=== PATIENT | male | born 1950 | race Caucasian/White ===

== ENCOUNTER 2017-11-07 16:18 | Inpatient (IN) | payer MEDICARE ==
[2017-11-07] MEDS ORDERED: DEXTROSE 50% 25 GM / 50ML DISP.SYRIN. IV (17:00)
[2017-11-07 17:40] LABS: POC GLUCOSE 105 mg/dL (70-99)
[2017-11-07 17:40] LABS: POC GLUCOSE 61 mg/dL (70-99)
[2017-11-07 17:48] LABS: ADD MAN DIFF? NO
[2017-11-07 17:50] LABS: BASO # 0.1 x10^3/uL (0.0-0.2); BASO % 1 % (0-3); EOS # 0.1 x10^3/uL (0.0-0.7); EOS % 1 % (0-3); HEMATOCRIT 45.6 % (39.0-53.0); HEMOGLOBIN 15.8 g/dL (13.0-17.5); LYMPH % 12 % (24-48); MEAN CORPUSCULAR HEMOGLOBIN 35 pg (25-35); MEAN CORPUSCULAR HGB CONC 35 g/dL (31-37); MEAN CORPUSCULAR VOLUME 100 fL (79-100); MONO % 12 % (0-9); NEUT # 6.4 x10^3uL (1.8-7.7); NEUT % 75 % (31-73); PLATELET COUNT 245 x10^3/uL (140-400); RED BLOOD COUNT 4.54 x10^6/uL (4.30-5.70); RED CELL DISTRIBUTION WIDTH 14.7 % (11.5-14.5); WHITE BLOOD COUNT 8.6 x10^3/uL (4.0-11.0)
[2017-11-07 18:00] LABS: INR 1.2 (0.8-1.1); PROTHROMBIN TIME PATIENT 14.2 SEC (11.7-14.0)
[2017-11-07 18:04] LABS: D-DIMER 0.91 ug/mlFEU (0.00-0.50)
[2017-11-07 18:07] LABS: ALBUMIN 3.2 g/dL (3.4-5.0); ALK PHOS 83 U/L (46-116); ALT (SGPT) 62 U/L (16-63); ANION GAP 17 (6-14); AST (SGOT) 49 U/L (15-37); BLOOD UREA NITROGEN 11 mg/dL (8-26); BUN/CREATININE RATIO 12 (6-20); CALCIUM 8.5 mg/dL (8.5-10.1); CARBON DIOXIDE 24 mmol/L (21-32); CHLORIDE 102 mmol/L (98-107); CREATININE 0.9 mg/dL (0.7-1.3); GFR 84.4; GLUCOSE 105 mg/dL (70-99); POTASSIUM 3.3 mmol/L (3.5-5.1); SODIUM 143 mmol/L (136-145); TOTAL BILIRUBIN 0.9 mg/dL (0.2-1.0); TOTAL PROTEIN 6.5 g/dL (6.4-8.2)
[2017-11-07] MEDS ORDERED: PNEUMOCOCCAL VAX SCREEN BY RX. MC (18:30)
[2017-11-07 18:31] LABS: THYROID STIM HORMONE (TSH) 2.269 uIU/mL (0.358-3.74)
[2017-11-07 18:31] LABS: FREE T4 1.07 ng/dL (0.76-1.46)
[2017-11-07 18:33] LABS: NT-PRO BNP 796 pg/mL (0-124)
[2017-11-07] MEDS ORDERED: ACETAMINOPHEN 325 MG TABLET. PO (19:00)
[2017-11-07 19:23] LABS: TROPONINI < 0.017 ng/mL (0.000-0.055)
[2017-11-07] MEDS: MAGNESIUM OXIDE 400 MG TABLET PO (21:04)
[2017-11-07] MEDS: POTASSIUM CHLORIDE 20 MEQ TABLET.ER. PO (21:04)
[2017-11-07] MEDS: FUROSEMIDE 40 MG/4 ML VIAL. IVP (21:05)
[2017-11-07] MEDS: ENOXAPARIN 40 MG/0.4 ML SYRINGE. SQ (21:05)
[2017-11-07 21:07] LABS: POC GLUCOSE 89 mg/dL (70-99)
[2017-11-08] MEDS: POTASSIUM CHLORIDE 20 MEQ TABLET.ER. PO ×4 (08:00→17:47)
[2017-11-08 08:12] LABS: POC GLUCOSE 97 mg/dL (70-99)
[2017-11-08] MEDS: MAGNESIUM OXIDE 400 MG TABLET PO ×2 (08:31→20:29)
[2017-11-08] MEDS: metFORMIN 500 MG TABLET PO (08:31)
[2017-11-08] MEDS: METOPROLOL SUCC 24HR ER 25 MG TAB.ER.24H. PO (08:32)
[2017-11-08] MEDS: LISINOPRIL 20 MG TABLET PO (08:32)
[2017-11-08] MEDS: GLIMEPIRIDE 2 MG TABLET. PO (08:32)
[2017-11-08 09:03] LABS: ANION GAP 8 (6-14); BLOOD UREA NITROGEN 11 mg/dL (8-26); CALCIUM 8.5 mg/dL (8.5-10.1); CARBON DIOXIDE 35 mmol/L (21-32); CHLORIDE 102 mmol/L (98-107); CREATININE 0.8 mg/dL (0.7-1.3); GFR 96.7; GLUCOSE 75 mg/dL (70-99); MAGNESIUM 1.5 mg/dL (1.8-2.4); SODIUM 145 mmol/L (136-145)
[2017-11-08 09:20] LABS: CHOLESTEROL 101 mg/dL (0-200); HDLC 52 mg/dL (40-60); LDLC 36 mg/dL (0-100); NON-HDL CHOLESTEROL 49 mg/dL (0-129); TRIGLYCERIDES 63 mg/dL (0-150); VLDLC 13 mg/dL (0-40)
[2017-11-08 09:21] LABS: CHOLESTEROL/HDL RATIO 1.9
[2017-11-08 09:23] LABS: POTASSIUM 2.7 mmol/L (3.5-5.1)
[2017-11-08 09:34] LABS: TROPONINI < 0.017 ng/mL (0.000-0.055)
[2017-11-08] MEDS: IOHEXOL 300 MG/ML 100ML VIAL. IV (10:15)
[2017-11-08] MEDS ORDERED: CONTRAST GIVEN MC (10:15)
[2017-11-08] MEDS ORDERED: FUROSEMIDE 20 MG/2 ML VIAL. IVP (11:00)
[2017-11-08 11:25] LABS: POC GLUCOSE 199 mg/dL (70-99)
[2017-11-08] MEDS ORDERED: FUROSEMIDE 40 MG TABLET. PO (12:00)
[2017-11-08] MEDS: SPIRONOLACTONE 25 MG TABLET PO (12:26)
[2017-11-08] MEDS: FUROSEMIDE 40 MG/4 ML VIAL. IVP (12:27)
[2017-11-08] MEDS: MAGNESIUM SULFATE 2GM 50 ML IV (12:31)
[2017-11-08] MEDS: ASPIRIN ENTERIC COATED 81 MG TABLET.DR. PO (12:31)
[2017-11-08 17:17] LABS: POC GLUCOSE 261 mg/dL (70-99)
[2017-11-08] MEDS: ENOXAPARIN 40 MG/0.4 ML SYRINGE. SQ (20:30)
[2017-11-08] MEDS: PNEUMOC CONJ VACC 23-VALENT 0.5 ML VIAL. VAX IM (20:32)
[2017-11-08] MEDS: INSULIN LISPRO 300 UNITS/3 ML INSULN.PEN. SQ (20:39)
[2017-11-08 20:54] LABS: POC GLUCOSE 247 mg/dL (70-99)
[2017-11-09 04:44] LABS: ANION GAP 7 (6-14); BLOOD UREA NITROGEN 14 mg/dL (8-26); CALCIUM 8.8 mg/dL (8.5-10.1); CARBON DIOXIDE 34 mmol/L (21-32); CHLORIDE 101 mmol/L (98-107); CREATININE 0.9 mg/dL (0.7-1.3); GFR 84.4; GLUCOSE 147 mg/dL (70-99); MAGNESIUM 1.8 mg/dL (1.8-2.4); POTASSIUM 3.1 mmol/L (3.5-5.1); SODIUM 142 mmol/L (136-145)
[2017-11-09] MEDS ORDERED: CONTRAST GIVEN MC (06:45)
[2017-11-09] MEDS: IOHEXOL 300 MG/ML 100ML VIAL. IV (07:23)
[2017-11-09 07:31] LABS: POC GLUCOSE 131 mg/dL (70-99)
[2017-11-09] MEDS: POTASSIUM CHLORIDE 20 MEQ TABLET.ER. PO ×3 (08:00→16:04)
[2017-11-09] MEDS: INSULIN LISPRO 300 UNITS/3 ML INSULN.PEN. SQ ×3 (08:00→18:03)
[2017-11-09] MEDS: MAGNESIUM OXIDE 400 MG TABLET PO ×2 (09:00→19:47)
[2017-11-09 10:54] LABS: POC GLUCOSE 143 mg/dL (70-99)
[2017-11-09] MEDS: REGADENOSON 0.4 MG/5 ML DISP.SYRIN. IV (11:30)
[2017-11-09] MEDS: GLIMEPIRIDE 2 MG TABLET. PO (14:10)
[2017-11-09] MEDS: ASPIRIN ENTERIC COATED 81 MG TABLET.DR. PO (14:10)
[2017-11-09] MEDS: SPIRONOLACTONE 25 MG TABLET PO (14:10)
[2017-11-09] MEDS: METOPROLOL SUCC 24HR ER 25 MG TAB.ER.24H. PO ×2 (14:11→18:00)
[2017-11-09] MEDS: LISINOPRIL 20 MG TABLET PO (14:12)
[2017-11-09] MEDS: FUROSEMIDE 40 MG/4 ML VIAL. IVP ×2 (14:12→16:04)
[2017-11-09 17:46] LABS: POC GLUCOSE 175 mg/dL (70-99)
[2017-11-09] MEDS: RIVAROXABAN 10 MG TABLET. PO (19:47)
[2017-11-09 21:20] LABS: POC GLUCOSE 218 mg/dL (70-99)
[2017-11-10 04:22] LABS: ANION GAP 7 (6-14); BLOOD UREA NITROGEN 12 mg/dL (8-26); CALCIUM 8.6 mg/dL (8.5-10.1); CARBON DIOXIDE 33 mmol/L (21-32); CHLORIDE 103 mmol/L (98-107); CREATININE 0.8 mg/dL (0.7-1.3); GFR 96.7; GLUCOSE 129 mg/dL (70-99); MAGNESIUM 1.8 mg/dL (1.8-2.4); POTASSIUM 3.3 mmol/L (3.5-5.1); SODIUM 143 mmol/L (136-145)
[2017-11-10] MEDS: INSULIN LISPRO 300 UNITS/3 ML INSULN.PEN. SQ ×2 (08:00→12:20)
[2017-11-10] MEDS: METOPROLOL SUCC 24HR ER 50 MG TAB.ER.24H. PO (08:18)
[2017-11-10] MEDS: SPIRONOLACTONE 25 MG TABLET PO (08:18)
[2017-11-10] MEDS: ASPIRIN ENTERIC COATED 81 MG TABLET.DR. PO (08:19)
[2017-11-10] MEDS: GLIMEPIRIDE 2 MG TABLET. PO (08:19)
[2017-11-10] MEDS: MAGNESIUM OXIDE 400 MG TABLET PO (08:19)
[2017-11-10] MEDS: LISINOPRIL 20 MG TABLET PO (08:19)
[2017-11-10] MEDS: POTASSIUM CHLORIDE 20 MEQ TABLET.ER. PO ×2 (08:20→12:16)
[2017-11-10 08:42] LABS: POC GLUCOSE 146 mg/dL (70-99)
[2017-11-10] MEDS: ANTI-COAG MONITOR BY PHARMACY. MC (11:21)
[2017-11-10] MEDS ORDERED: ANTI-COAG MONITOR BY PHARMACY. MC (11:30)
[2017-11-10 11:49] LABS: POC GLUCOSE 201 mg/dL (70-99)
[2017-11-10] MEDS: amLODIPine BESYLATE 5 MG TABLET PO (12:17)
[2017-11-11] MEDS ORDERED: metFORMIN 500 MG TABLET PO (08:00)
[2017-11-11] MEDS ORDERED: GLIMEPIRIDE 2 MG TABLET. PO (08:00)
[2017-11-11] MEDS ORDERED: FUROSEMIDE 40 MG TABLET. PO (09:00)
== END 2017-11-10 13:10 | disposition home health service (06) | DRG 291 ==
LOC: 2 NORTH 16:18
PROVIDERS: Internal Medicine
DX: I11.0 Hypertensive heart disease with heart failure (principal); J96.01 Acute respiratory failure with hypoxia; E83.42 Hypomagnesemia; I27.20 Pulmonary hypertension, unspecified; I44.1 Atrioventricular block, second degree; E27.8 Other specified disorders of adrenal gland; I48.92 Unspecified atrial flutter; I50.31 Acute diastolic (congestive) heart failure; I48.0 Paroxysmal atrial fibrillation; E11.9 Type 2 diabetes mellitus without complications; E78.5 Hyperlipidemia, unspecified; E87.6 Hypokalemia; F10.20 Alcohol dependence, uncomplicated; I44.7 Left bundle-branch block, unspecified; N40.0 Benign prostatic hyperplasia without lower urinary tract symptoms; T50.2X5A Adverse effect of carbonic-anhydrase inhibitors, benzothiadiazides and other diuretics, initial encounter; Z82.49 Family history of ischemic heart disease and other diseases of the circulatory system; Z83.3 Family history of diabetes mellitus; Z87.442 Personal history of urinary calculi; M19.90 Unspecified osteoarthritis, unspecified site; Z88.5 Allergy status to narcotic agent; Z88.8 Allergy status to other drugs, medicaments and biological substances; Z88.1 Allergy status to other antibiotic agents; R80.9 Proteinuria, unspecified; R19.02 Left upper quadrant abdominal swelling, mass and lump
CPT/HCPCS: 36415; 71045; 71275; 74177; 78452; 80048; 80053; 80061; 82962; 83735; 83880; 84439; 84443; 84484; 85025; 85379; 85610; 90732; 93005; 93017; 93306; 93970; 94618; 96374; 96375; 96376; A9500; J1650; J1815; J1940; J2785; J3475; Q9967

== ENCOUNTER → 2017-11-14 | Outpatient (CLI) | payer MEDICARE ==
[2017-11-14] MEDS: GADOBUTROL 10 MMOL/10 ML VIAL IV (13:25)
== END | disposition home or self-care (01) ==
LOC: KCIC MRI 12:27
DX: E27.9 Disorder of adrenal gland, unspecified (principal); R19.02 Left upper quadrant abdominal swelling, mass and lump; D35.01 Benign neoplasm of right adrenal gland; K76.89 Other specified diseases of liver
CPT/HCPCS: 74183; A9585

== ENCOUNTER 2017-11-19 07:33 | Emergency (ER) | payer MEDICARE ==
[2017-11-19] MEDS: HYDROcodone/APAP 5/325MG 1 TAB TABLET PO (08:21)
== END 2017-11-19 08:55 | disposition home or self-care (01) ==
LOC: ER 07:33
DX: S22.42XA Multiple fractures of ribs, left side, initial encounter for closed fracture (principal); Z88.1 Allergy status to other antibiotic agents; Z88.8 Allergy status to other drugs, medicaments and biological substances; W17.1XXA Fall into storm drain or manhole, initial encounter; Y93.01 Activity, walking, marching and hiking; Y92.89 Other specified places as the place of occurrence of the external cause; Y99.8 Other external cause status
CPT/HCPCS: 71101; 99284

== ENCOUNTER 2020-06-30 20:07 | Emergency (ER) | payer MEDICARE ==
[~2020-06-30] VITALS: Ht 175.3 cm; Wt 113.6 kg
[~2020-06-30 20:07] MED LIST: ACET325T21 PO; ACET325T9 PO; AMLO-186 PO; APIX5TAB PO; ASCO500C PO; ASPI-886 PO; BISA10SU55 RC; BUME1TAB3 PO; BUMETANIDE IV; CIPR250T30 PO; DOCU283E RC; FURO40TA4 PO; GLIM2TAB PO; GLIM4TAB8 PO; HYDR-3164 PO; INSU100V35 SQ; LINE600T12 PO; LISI-334 PO; LISI-338 PO; MAG1TAB.11 PO; MAGN24003 PO; MAGN400T44 PO; MAGN400T5 PO; MELA3TAB43 PO; MERO500V24 IV; METF500T PO; METF500T16 PO; METO-239 PO; METO2.5T PO; METO25TA4 PO; METO50TA29 PO; MICO14CR TP; MULT1TAB90 PO; PANT40TA77 PO; POTA20TA4 PO; RIVA10TA PO; SENN1TAB62 PO; SPIR25TA PO; TAMS0.4C97 PO; TRAM50TA PO; [UNRECOGNIZED DRUG - CODE] IV; [UNRECOGNIZED DRUG - CODE] IV
[2020-06-30] MEDS ORDERED: MORPHINE SULFATE 4 MG/ML VIAL. IV/SQ PRN (20:45)
[2020-06-30 20:59] LABS: BILIRUBIN,URINE NEGATIVE (NEG); CLARITY,URINE TURBID; COLOR,URINE YELLOW; NITRITE,URINE NEGATIVE (NEG); PH,URINE 5.5 (<5.0-8.0); PROTEIN,URINE 100 mg/dL (NEG-TRACE)
[2020-06-30 21:03] LABS: BARBITURATES NEG (NEG); BENZODIAZEPINES NEG (NEG); CANNABINOIDS NEG (NEG); COCAINE NEG (NEG); METHADONE NEG (NEG); OPIATES NEG (NEG); PHENCYCLIDINE NEG (NEG)
[2020-06-30 21:05] LABS: AMPHETAMINE/METHAMPHETAMINE NEG (NEG)
[2020-06-30 21:06] LABS: BASO % 1 % (0-3); EOS # 0.3 x10^3/uL (0.0-0.7); EOS % 5 % (0-3); HEMATOCRIT 25.2 % (39.0-53.0); HEMOGLOBIN 7.7 g/dL (13.0-17.5); LYMPH # 0.6 x10^3/uL (1.0-4.8); LYMPH % 12 % (24-48); MEAN CORPUSCULAR HEMOGLOBIN 26 pg (25-35); MEAN CORPUSCULAR HGB CONC 31 g/dL (31-37); MEAN CORPUSCULAR VOLUME 85 fL (79-100); MONO # 0.8 x10^3/uL (0.0-1.1); MONO % 15 % (0-9); NEUT # 3.6 x10^3/uL (1.8-7.7); NEUT % 67 % (31-73); PLATELET COUNT 230 x10^3/uL (140-400); RED BLOOD COUNT 2.97 x10^6/uL (4.30-5.70); RED CELL DISTRIBUTION WIDTH 18.4 % (11.5-14.5); WHITE BLOOD COUNT 5.3 x10^3/uL (4.0-11.0)
[2020-06-30 21:10] LABS: WBC,URINE TNTC /HPF (0-4)
[2020-06-30 21:11] LABS: BACTERIA,URINE MANY /HPF (0-FEW); RBC,URINE 20-40 /HPF (0-2)
[2020-06-30 21:14] LABS: YEAST,URINE PRESENT /HPF
[2020-06-30 21:19] LABS: CALCIUM 9.1 mg/dL (8.5-10.1); CREATININE 1.9 mg/dL (0.7-1.3); GFR 35.3; POTASSIUM 3.4 mmol/L (3.5-5.1)
[2020-06-30 21:33] LABS: ALBUMIN 2.9 g/dL (3.4-5.0); ALBUMIN/GLOBULIN RATIO 0.8 (1.0-1.7); MAGNESIUM 2.4 mg/dL (1.8-2.4); TOTAL BILIRUBIN 0.5 mg/dL (0.2-1.0); TOTAL PROTEIN 6.4 g/dL (6.4-8.2)
[2020-06-30 21:36] LABS: CREATINE KINASE 49 U/L (39-308)
--- NOTE | 2020-06-30 22:22 | PHYS DOC ---
Past Medical History Past Medical History: A-Fib, CHF, Diabetes-Type II, High Cholesterol, Hypertension Past Surgical History: Other Additional Past Surgical Histo: unknown Smoking Status: Former Smoker Alcohol Use: Occasionally Drug Use: None General Adult EDM: Chief Complaint: ABNORMAL LABS HPI: HPI: Patient is a 70 year old male with history of A. fib, diabetes type 2, hypertension, high cholesterol, CHF who presents to the ED today from a rehab facility. Patient was sent to the ED because he has abnormal labs which they state is elevated creatinine and BUN. We do not have the numbers that were done at the rehab facility. They also report patient has increased bilateral lower extremity swelling. Patient denies any shortness of breath. Denies any fever, cough, nasal congestion. Patient himself states he does not know why the rehab presented to the emergency room if he had no acute symptoms and does not believe the BUN and creatinine at the rehab facility was different from his normal labs. Review of Systems: Review of Systems: Constitutional: Denies fever or chills. [] Eyes: Denies change in visual acuity. [] HENT: Denies nasal congestion or sore throat. [] Respiratory: Denies cough or shortness of breath. [] Cardiovascular: Reports increased swelling to bilateral lower extremities denies chest pain GI: Denies abdominal pain, nausea, vomiting, bloody stools or diarrhea. [] : Reports Phoenix catheter Musculoskeletal: Denies back pain or joint pain. [] Integument: Denies rash. [] Neurologic: Denies headache, focal weakness or sensory changes. [] Psychiatric: Denies depression or anxiety. [] Heart Score: Risk Factors: Risk Factors: DM, Current or recent (<one month) smoker, HTN, HLP, family history of CAD, obesity. Risk Scores: Score 0 - 3: 2.5% MACE over next 6 weeks - Discharge Home Score 4 - 6: 20.3% MACE over next 6 weeks - Admit for Clinical Observation Score 7 - 10: 72.7% MACE over next 6 weeks - Early Invasive Strategies Current Medications: Current Medications Medications (Trade) Dose Ordered Sig/Jeremías Start Time Stop Time Status Last Admin Dose Admin Morphine Sulfate (Morphine Sulfate) 4 mg PRN Q15MIN PRN 06/30/20 20:45 07/01/20 20:44 Allergies: Allergies: Allergies Coded Allergies Type Severity Reaction Last Updated Verified amoxicillin Allergy Intermediate Diarrhea 11/07/17 Yes clavulanic acid Allergy Intermediate Diarrhea 11/07/17 Yes clonidine Allergy Intermediate 11/07/17 Yes hydrochlorothiazide Allergy Intermediate 04/27/20 Yes irbesartan Allergy Intermediate 04/27/20 Yes metformin Allergy Intermediate 04/27/20 Yes pioglitazone Allergy Intermediate 11/07/17 Yes Physical Exam: PE: Constitutional: Well developed, well nourished, no acute distress, non-toxic appearance. [] HENT: Normocephalic, atraumatic, bilateral external ears normal, oropharynx moist, no oral exudates, nose normal. [] Eyes: PERRLA, EOMI, conjunctiva normal, no discharge. [] Neck: Normal range of motion, no tenderness, supple, no stridor. [] Cardiovascular:Heart rate regular rhythm, no murmur [] Lungs & Thorax: Pleur-vac tubing drain noted on the right lower chest. Dimi nished breath sounds to the left lower lung. Abdomen: Rounded abdomen. bowel sounds normal, soft, no tenderness, no masses, no pulsatile masses. Phoenix catheter in place Skin: Warm, dry, no erythema, no rash. [] Back: No tenderness, no CVA tenderness. [] Extremities: No tenderness, no cyanosis, no clubbing, ROM intact, +2 bilateral pedal edema Neurologic: Alert and oriented X 3, normal motor function, normal sensory function, no focal deficits noted. [] Psychologic: Affect normal, judgement normal, mood normal. [] Current Patient Data: Labs: Laboratory Tests Test 06/30/20 20:35 06/30/20 20:52 Urine Collection Type Unknown Urine Color Yellow Urine Clarity Turbid Urine pH 5.5 (<5.0-8.0) Urine Specific [place] 1.015 (1.000-1.030) Urine Protein 100 mg/dL (NEG-TRACE) Urine Glucose (UA) Negative mg/dL (NEG) Urine Ketones (Stick) Negative mg/dL (NEG) Urine Blood Large (NEG) Urine Nitrite Negative (NEG) Urine Bilirubin Negative (NEG) Urine Urobilinogen Dipstick 1.0 mg/dL (0.2 mg/dL) Urine Leukocyte Esterase Large (NEG) Urine RBC 20-40 /HPF (0-2) Urine WBC Tntc /HPF (0-4) Urine Squamous Epithelial Cells None /LPF Urine Bacteria Many /HPF (0-FEW) Urine Yeast Present /HPF Urine Opiates Screen Neg (NEG) Urine Methadone Screen Neg (NEG) Urine Barbiturates Neg (NEG) Urine Phencyclidine Screen Neg (NEG) Urine Amphetamine/Methamphetamine Neg (NEG) Urine Benzodiazepines Screen Neg (NEG) Urine Cocaine Screen Neg (NEG) Urine Cannabinoids Screen Neg (NEG) Urine Ethyl Alcohol Neg (NEG) White Blood Count 5.3 x10^3/uL (4.0-11.0) Red Blood Count 2.97 x10^6/uL (4.30-5.70) L Hemoglobin 7.7 g/dL (13.0-17.5) L Hematocrit 25.2 % (39.0-53.0) L Mean Corpuscular Volume 85 fL (79-100) Mean Corpuscular Hemoglobin 26 pg (25-35) Mean Corpuscular Hemoglobin Concent 31 g/dL (31-37) Red Cell Distribution Width 18.4 % (11.5-14.5) H Platelet Count 230 x10^3/uL (140-400) Neutrophils (%) (Auto) 67 % (31-73) Lymphocytes (%) (Auto) 12 % (24-48) L Monocytes (%) (Auto) 15 % (0-9) H Eosinophils (%) (Auto) 5 % (0-3) H Basophils (%) (Auto) 1 % (0-3) Neutrophils # (Auto) 3.6 x10^3/uL (1.8-7.7) Lymphocytes # (Auto) 0.6 x10^3/uL (1.0-4.8) L Monocytes # (Auto) 0.8 x10^3/uL (0.0-1.1) Eosinophils # (Auto) 0.3 x10^3/uL (0.0-0.7) Basophils # (Auto) 0.0 x10^3/uL (0.0-0.2) Sodium Level 141 mmol/L (136-145) Potassium Level 3.4 mmol/L (3.5-5.1) L Chloride Level 101 mmol/L (98-107) Carbon Dioxide Level 36 mmol/L (21-32) H Anion Gap 4 (6-14) L Blood Urea Nitrogen 55 mg/dL (8-26) H Creatinine 1.9 mg/dL (0.7-1.3) H Estimated GFR (Cockcroft-Gault) 35.3 BUN/Creatinine Ratio 29 (6-20) H Glucose Level 93 mg/dL (70-99) Lactic Acid Level 1.2 mmol/L (0.4-2.0) Calcium Level 9.1 mg/dL (8.5-10.1) Magnesium Level 2.4 mg/dL (1.8-2.4) Total Bilirubin 0.5 mg/dL (0.2-1.0) Aspartate Amino Transferase (AST) 15 U/L (15-37) Alanine Aminotransferase (ALT) 12 U/L (16-63) L Alkaline Phosphatase 116 U/L (46-116) Creatine Kinase 49 U/L (39-308) Creatine Kinase MB (Mass) 1.3 ng/mL (0.0-3.6) Creatine Kinase MB Relative Index % (0-4) Troponin I Quantitative 0.020 ng/mL (0.000-0.055) SR-[id number]-[id number]-Type Natriuretic Peptide 8487 pg/mL (0-124) H Total Protein 6.4 g/dL (6.4-8.2) Albumin 2.9 g/dL (3.4-5.0) L Albumin/Globulin Ratio 0.8 (1.0-1.7) L Lipase 193 U/L (73-393) Procalcitonin < 0.10 ng/mL (0.00-0.10) Thyroid Stimulating Hormone (TSH) 11.939 uIU/mL (0.358-3.74) H Laboratory Tests 06/30/20 20:52 Laboratory Tests 06/30/20 20:52 Vital Signs: Vital Signs Date Time Temp Pulse Resp B/P (MAP) Pulse Ox O2 Delivery O2 Flow Rate FiO2 06/30/20 20:43 70 18 99/60 (73) 100 Nasal Cannula 3.0 06/30/20 20:11 97.8 97.8 EKG: EKG: [] Radiology/Procedures: Radiology/Procedures: []PROCEDURE: PORTABLE CHEST 1V EXAM: AP View of the chest DATE: 06/30/2020 9:32 PM INDICATION: Reason: swelling to BLE hx of CHF / Spl. Instructions: / History: COMPARISON: 05/16/2020 FINDINGS: Stable cardiomegaly. Aorta is tortuous. Bilateral perihilar and lung base airspace opacities and pleural effusions. No pneumothorax. IMPRESSION: Cardiomegaly with bilateral perihilar and lung base airspace opacities and pleural effusions, concerning for pulmonary edema. Electronically signed by: Willy Marcelino MD (06/30/2020 10:31 PM) [facility] DICTATED and SIGNED BY: WILLY MARCELINO MD DATE: 06/30/20 [id number] 0 Course & Med Decision Making: Course & Med Decision Making Pertinent Labs and Imaging studies reviewed. (See chart for details) This is a 70-year-old male patient with history of CHF among other illnesses sent to the ED from [facility] rehab facility to be evaluated for increased swelling and abnormal labs. Rehab is concerned about elevated creatinine and BUN. Creatinine in the ED is 1.9, BUN is 55 this numbers are around his baseline. Patient also has a Phoenix catheter, urine positive for large amount of leukocytes, most likely colonized. CBC with a normal WBC, chest x-ray noted for pulmonary edema. Vitals are stable, O2 sats at 100% on 3 L of oxygen which he uses chronically. Patient is afebrile. Patient is alert oriented x4. Spoke to Dr. Reynoso patient's PCP. We went through his work up to try and figure out if there is any acute reason for admission. We could not find anything to admit patient for. D/c back to rehab Glenda Disclaimer: Glenda Disclaimer: This electronic medical record was generated, in whole or in part, using a voice recognition dictation system. Departure Departure Impression: Primary Impression: CHF (congestive heart failure) Qualified Codes: I50.9 - Heart failure, unspecified Additional Impression: UTI (urinary tract infection) Qualified Codes: T83.511A - Infection and inflammatory reaction due to indwelling urethral catheter, initial encounter; N39.0 - Urinary tract infection, site not specified Disposition: 01 DC HOME SELF CARE/HOMELESS Condition: STABLE Referrals: DALIA REYNOSO MD (PCP) follow up next week Patient Instructions: Heart Failure, [id number], Urinary Tract Infection Additional Instructions: You were evaluated in the emergency room. Please continue with treatment at rehab facility. Your work-up in the emergency room was negative for any acute findings. Your creatinine was 1.9 with BUN of 55 which is around your baseline. Your primary care doctor Dr. Siddiqi was okay with you going back to rehab. Your urine is positive for infection but you have a catheter there is a chance this urine is colonized. We will culture it. If it grows any infection we will call the rehab facility and let them know. SHANICE BOATENG APRN Jun 30, 2020 22:22
--- NOTE | 2020-06-30 22:33 | RAD ---
EXAM: AP View of the chest DATE: 06/30/2020 9:32 PM INDICATION: Reason: swelling to BLE hx of CHF / Spl. Instructions: / History: COMPARISON: 05/16/2020 FINDINGS: Stable cardiomegaly. Aorta is tortuous. Bilateral perihilar and lung base airspace opacities and pleu ral effusions. No pneumothorax. IMPRESSION: Cardiomegaly with bilateral perihilar and lung base airspace opacities and pleural effusions, concern ing for pulmonary edema. Electronically signed by: Willy Jones MD (06/30/2020 10:31 PM) MARCELINO
[2020-06-30 23:48] VITALS: BP 108/67
== END 2020-07-01 00:05 | disposition home or self-care (01) ==
LOC: ER 20:07
DX: T83.511A Infection and inflammatory reaction due to indwelling urethral catheter, initial encounter (principal); N39.0 Urinary tract infection, site not specified; I11.0 Hypertensive heart disease with heart failure; I50.9 Heart failure, unspecified; I48.91 Unspecified atrial fibrillation; E11.9 Type 2 diabetes mellitus without complications; Z87.891 Personal history of nicotine dependence; Z88.1 Allergy status to other antibiotic agents; Z88.8 Allergy status to other drugs, medicaments and biological substances; Z79.899 Other long term (current) drug therapy; Y84.6 Urinary catheterization as the cause of abnormal reaction of the patient, or of later complication, without mention of misadventure at the time of the procedure; Y92.89 Other specified places as the place of occurrence of the external cause
CPT/HCPCS: 36415; 71045; 80053; 80307; 81001; 82553; 83605; 83690; 83735; 83880; 84145; 84443; 84484; 85025; 87077; 87086; 87186; 93005; 99285-25

== ENCOUNTER 2020-12-16 13:52 | Inpatient (IN) | payer MEDICARE, OTHER ==
[~2020-12-16] VITALS: Ht 177.8 cm; Wt 78.1 kg
[~2020-12-16 13:52] MED LIST changes: -LISI-334 PO; -LISI-338 PO; +LISI-517 PO; +LISI20TA18 PO; -MICO14CR TP; +MICO14CR3 TP; -MULT1TAB90 PO; +MULT1TAB92 PO
--- NOTE | 2020-12-16 14:06 | PHYS DOC ---
Past Medical History Past Medical History: A-Fib, CHF, Diabetes-Type II, High Cholesterol, Hyp ertension Past Surgical History: Other Additional Past Surgical Histo: unknown Smoking Status: Never Smoker Alcohol Use: Occasionally Drug Use: None General Adult EDM: Chief Complaint: SOA HPI: HPI: 70-year-old male with a history of a transitive pleural effusion with recurrent status post right pleural chest tube placed by pulmonology. At the nursing facility his chest tube got clogged about a week ago and has since then developed worsening shortness of breath. He denies any fevers chills or vomiting. His shortness of breath is associated with the clogging of the chest tube. Duration constant. Review of systems negative for abdominal pain vomiting fevers chills cough. He denies unilateral leg swelling or hemoptysis. All other review of systems negative. Heart Score: C/O Chest Pain: No Risk Factors: Risk Factors: DM, Current or recent (<one month) smoker, HTN, HLP, family history of CAD, obesity. Risk Scores: Score 0 - 3: 2.5% MACE over next 6 weeks - Discharge Home Score 4 - 6: 20.3% MACE over next 6 weeks - Admit for Clinical Observation Score 7 - 10: 72.7% MACE over next 6 weeks - Early Invasive Strategies Allergies: Allergies: Allergies Coded Allergies Type Severity Reaction Last Updated Verified amoxicillin Allergy Intermediate Diarrhea 11/07/17 Yes clavulanic acid Allergy Intermediate Diarrhea 11/07/17 Yes clonidine Allergy Intermediate 11/07/17 Yes hydrochlorothiazide Allergy Intermediate 04/27/20 Yes irbesartan Allergy Intermediate 04/27/20 Yes metformin Allergy Intermediate 04/27/20 Yes pioglitazone Allergy Intermediate 11/07/17 Yes Physical Exam: PE: Constitutional: Well developed, well nourished, no acute distress, non-toxic appearance. [] HENT: Normocephalic, atraumatic, bilateral external ears normal, oropharynx moist, no oral exudates, nose normal. [] Trachea is midline. No JVD. Eyes: PERRLA, EOMI, conjunctiva normal, no discharge. [] Neck: Normal range of motion, no tenderness, supple, no stridor. [] Cardiovascular:Heart rate regular rhythm, no murmur [] Lungs & Thorax: Right lung sounds are diminished. Left lung sounds are clear with no wheezing or crackles. Abdomen: Bowel sounds normal, soft, no tenderness, no masses, no pulsatile masses. [] Skin: Warm, dry, no erythema, no rash. [] Back: No tenderness, no CVA tenderness. [] Extremities: No tenderness, no cyanosis, no clubbing, ROM intact, no edema. [] Neurologic: Alert and oriented X 3, normal motor function, normal sensory function, no focal deficits noted. [] Psychologic: Affect normal, judgement normal, mood normal. [] EKG: EKG: EKG shows a left bundle branch block pattern. Scar Bosa negative. No obvious P wave. Regular rate. Regular rhythm. Similar to previous on April 262019 [] Radiology/Procedures: Radiology/Procedures: [] Course & Med Decision Making: Course & Med Decision Making Pertinent Labs and Imaging studies reviewed. (See chart for details) [] 70-year-old male sent here after his pleural tube got clogged. On arrival the patient is afebrile with a normal heart rate. Blood pressure within normal limits of satting 99% on 3 L nasal cannula. Blood counts obtained which showed a normal white blood cell count. Hemoglobin 12.4. Chemistry panel shows a potassium of 2.2. Creatinine 1.6 with a BUN of 89. Procalcitonin elevated at 0.12. Troponin elevated at 0.07. proBNP elevated at 4528. Lactic acid within normal limits. Magnesium within normal limits. We will need to replete the patient's potassium by IV. I spoke with Dr. Reynoso who accepts patient for admission. I spoke with Dr. Haro and informed him about the patient. Dr. Yandy dennison asked that I consult Dr. Dill and Dr. Nguyen. Consults were placed with basic bridge orders. Given the patient's elevated procalcitonin with the chest x-ray is inability to exclude pneumonia we will cover the patient with IV antibiotics until we can clarify with more information. Glenda Disclaimer: Glenda Disclaimer: This electronic medical record was generated, in whole or in part, using a voice recognition dictation system. Departure Departure Impression: Primary Impression: CHF (congestive heart failure) Additional Impressions: Pleural effusion Hypokalemia Disposition: ADMITTED INPATIENT Admitting Physician: Meek Reynoso [facility] Condition: STABLE Referrals: MEEK REYNOSO MD (PCP) BALDOMERO CARUSO MD Dec 16, 2020 14:06
--- NOTE | 2020-12-16 14:31 | RAD ---
EXAM: AP View of the chest DATE: 12/16/2020 2:04 PM INDICATION: Reason: CHEST TUBE NOT DRAINING PER PATIENT / Spl. Instructions: / History: COMPARISON: No Prior FINDINGS: Heart is moderately enlarged. Aorta is tortuous. Atherosclerotic calcifications. Bilateral pleural ef fusions. Bilateral parenchymal airspace opacities likely pulmonary edema or consolidative process suc h as pneumonia. No pneumothorax. IMPRESSION: Cardiomegaly with bilateral pleural effusions and parenchymal opacities may represent pulmonary edema or consolidative process such as pneumonia Electronically signed by: Willy Jones MD (12/16/2020 2:29 PM) MARCELINO
[2020-12-16 15:14] LABS: BASO % 0 % (0-3); EOS # 0.3 x10^3/uL (0.0-0.7); EOS % 4 % (0-3); HEMATOCRIT 35.8 % (39.0-53.0); HEMOGLOBIN 12.4 g/dL (13.0-17.5); LYMPH # 0.5 x10^3/uL (1.0-4.8); LYMPH % 6 % (24-48); MEAN CORPUSCULAR HEMOGLOBIN 30 pg (25-35); MEAN CORPUSCULAR HGB CONC 35 g/dL (31-37); MEAN CORPUSCULAR VOLUME 87 fL (79-100); MONO # 1.1 x10^3/uL (0.0-1.1); MONO % 13 % (0-9); NEUT # 6.3 x10^3/uL (1.8-7.7); NEUT % 77 % (31-73); PLATELET COUNT 314 x10^3/uL (140-400); RED BLOOD COUNT 4.13 x10^6/uL (4.30-5.70); RED CELL DISTRIBUTION WIDTH 13.8 % (11.5-14.5); WHITE BLOOD COUNT 8.2 x10^3/uL (4.0-11.0)
[2020-12-16 15:45] LABS: ALBUMIN 3.1 g/dL (3.4-5.0); CALCIUM 9.3 mg/dL (8.5-10.1); CREATININE 1.6 mg/dL (0.7-1.3); DIRECT BILIRUBIN 0.3 mg/dL (0.0-0.2); GFR 43.1; TOTAL BILIRUBIN 0.8 mg/dL (0.2-1.0); TOTAL PROTEIN 7.7 g/dL (6.4-8.2)
[2020-12-16 15:49] LABS: POTASSIUM 2.2 mmol/L (3.5-5.1)
[2020-12-16] MEDS ORDERED: VANCOMYCIN PER PHARMACY MC PRN (16:15)
[2020-12-16] MEDS ORDERED: levOFLOXacin PER PHARMACY. MC PRN (16:15)
[2020-12-16] MEDS ORDERED: POTASSIUM CHLORIDE 20MEQ 100 ML IV ONE (16:15)
[2020-12-16] MEDS ORDERED: POTASSIUM CHLORIDE 20 MEQ TABLET.ER. PO ONE ×2 (16:45→21:00)
[2020-12-16] MEDS ORDERED: ACETAMINOPHEN 325 MG TABLET. PO PRN (16:45)
[2020-12-16] MEDS ORDERED: VANCOMYCIN 1GM IVPB FOR OMNI 250 ML IV ONE (17:00)
[2020-12-16] MEDS: INSULIN LISPRO 300 UNITS/3 ML VIAL. SQ SCH (17:00)
--- NOTE | 2020-12-16 17:09 | PDOC ---
Provider Note Date of Service: DATE: 12/16/20 TIME: 17:08 Provider Note history and physical dictated # [id number] Justifications for Admission Other Justification DALIA FRANKLIN MD Dec 16, 2020 17:09
[2020-12-16] MEDS ORDERED: NORMAL SALINE IV SCH (17:30)
--- NOTE | 2020-12-16 17:30 | RAD ---
EXAM: RENAL ULTRASOUND CLINICAL HISTORY: Reason: acute kidney injury. rule out hydronephrosis / Spl. Instructions: / Histor y: COMPARISON: None available. TECHNIQUE: Ultrasound examination of the bilateral kidneys and urinary bladder was performed. FINDINGS: The right kidney measures 12.0 x 4.9 x 7.3 cm. The left kidney measures 9.4 x 4.7 x 5.2 cm. Punctate bilateral intrarenal calculi identified. No obvious hydronephrosis.Cystic structure identified in the inferior aspect of the left kidney measuring 3.5 cm likely cyst. Phoenix catheter balloon identified i n the urinary bladder. IMPRESSION: 1. Bilateral intrarenal collecting system calculi. 2. 3.4 cm cyst left kidney. Electronically signed by: Michael Guo MD (12/16/2020 5:27 PM) [id number]
--- NOTE | 2020-12-16 18:40 | HP ---
ADMIT DATE: 12/16/2020 HISTORY OF PRESENT ILLNESS: The patient is a 70-year-old white male with history of chronic diastolic congestive heart failure, moderate aortic stenosis, paroxysmal atrial fibrillation, chronic kidney disease stage III, diabetes mellitus type 2 with nephropathy, who has a PleurX tube in the right chest for recurrent transudative pleural effusions and lives in assisted living facility. Apparently his PleurX tube, which he has had for 6 months was clotted for one week and apparently usually has a guillory color according to the patient when the fluid was removed, the last week it is just being blood-tinged. Normally since the fluid is removed about twice a week. He does not know the name of his medications. He was sent to the emergency room apparently by the visiting nurse because of malfunction of the PleurX tube and also some shortness of breath, dyspnea on exertion. He is on oxygen at home about 2-1/2 liters per nasal cannula, he says. He cannot recall his medications and unfortunately does not have his list from home for medications he takes. He did have a chest x-ray, which showed some bilateral pleural effusions. His potassium was quite low at 2.2 in the emergency room and his BUN and creatinine was higher than usual. His BUN was 89, creatinine 1.6. Previous BUN in the past was 55, creatinine 1.6 to 1.9 range. He is therefore admitted for further evaluation and treatment of his congestive heart failure and hypokalemia and also malfunctioning of his right PleurX tube. ALLERGIES: INTOLERANCE TO AUGMENTIN, CLONIDINE, HYDROCHLOROTHIAZIDE, AVAPRO, METFORMIN AND ACTOS. MEDICATIONS PRIOR TO ADMISSION: Unknown. He says he was taking potassium chloride 50 mEq a day, taking furosemide. He does not know the dose, was taking glimepiride 1 mg every day and otherwise he cannot remember his other medications that we are trying to get the list of his medications from his home health services. PAST MEDICAL HISTORY: Significant for chronic hypoxic respiratory failure, chronic diastolic congestive heart failure, moderate aortic stenosis, paroxysmal atrial fibrillation, previously treated with Eliquis, but he stopped the Eliquis because he was having significant nosebleeds lasting 24 hours. He has been off the Eliquis at least 6 months nonobstructive coronary artery disease, bilateral transudative pleural effusions and he has had thoracentesis in the past and he has had a right PleurX tube placed about 6 months ago. He has diabetes mellitus type 2 with nephropathy. He has had urinary tract infections in the past, moderate pulmonary hypertension. He has got a diabetic peripheral neuropathy. He had a left adrenal adenectomy for a benign adrenal mass associated with hyperaldosteronism few years ago. SOCIAL HISTORY: Drinks some alcohol in the past, but is not due so. He does not smoke. He lives in assisted living facility and uses a walker. In the past, apparently had one glass of alcohol a day or even up to two drinks a day. FAMILY HISTORY: Not contributory. REVIEW OF SYSTEMS: CONSTITUTIONAL: There has been no fever, chills or sweats in last few days. CARDIOVASCULAR: No chest pain. PULMONARY: No dyspnea on exertion. Denies any cough. GI: Last bowel movement was in the last 24 hours. ENDOCRINE: He has diabetes mellitus. SKIN: No rashes. PHYSICAL EXAMINATION: VITAL SIGNS: Temperature is 98.6 degrees, heart rate is 60, respiratory rate 18, blood pressure 104/61, oxygen saturation 99% on 3 liters per nasal cannula. HEENT: Eyes gaze is conjugate. Mouth is symmetrical. NECK: He has got JVD. HEART: Reveals an S1, S2. He has got a grade II/ systolic murmur left sternal border, also heard at the axilla. LUNGS: Reveals a few crackles in the left lung base and decreased breath sounds in right lung base. He has a PleurX tube anteriorly in the right chest. ABDOMEN: Soft with no hepatosplenomegaly, masses or tenderness. GENITOURINARY: He has got a Phoenix catheter in place. EXTREMITIES: Lower extremities without edema. Both feet are warm. Dorsalis pedis pulses mildly present. SKIN: No rashes. 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 LABORATORY DATA: White count 8.3, hemoglobin 12.4, MCV of 87, platelet count 314,000, 77 polys and 6 lymphocytes. Sodium 138, potassium was very low at 2.2, chloride 92, total CO2 39 with a BUN of 89, creatinine 1.6. His liver function tests were okay. His albumin was 3.1, lipase was 222. Magnesium 2.0. Lactic acid level 1.8. Troponin level of 0.07. ProBNP was 4528. Procalcitonin was 0.12 and electrocardiogram showed normal sinus rhythm, first degree AV block and a left bundle branch block. He had a chest x-ray done, which showed moderate cardiomegaly. He has got atherosclerotic calcifications, bilateral pleural effusions. No pneumothorax. ASSESSMENT: 1. Acute on chronic diastolic congestive heart failure. 2. Acute kidney injury on top of chronic kidney disease stage III, possibly secondary to intravascular volume depletion from his diuretics he took prior to admission. 3. Severe hypokalemia. 4. Bilateral pleural effusions. 5. Malfunctioning of the PleurX tube in the right side. 6. Paroxysmal atrial fibrillation, currently in sinus rhythm, off of Eliquis due to recurrent and significant nosebleeds and he stopped the Eliquis himself about 6 months ago. 7. Diabetes mellitus type 2 with nephropathy. 8. Moderate aortic stenosis. 9. Nonobstructive coronary artery disease. 10. Acute on chronic hypoxic respiratory failure. PLAN: The plan at this time is to consult Dr. Dill for Pulmonary, Dr. Wilson for Cardiology, Dr. Nguyen nephrology. We will order an echocardiogram and also order a renal ultrasound. I spoke with the nurses in the emergency room to see if they can get a copy of his home medications. Then, the left an order for nursing to call me around 7:00 p.m. tonight with the medications. Recommend holding of diuretics for the time being. He is lying in bed supine. He is not short of breath and with his azotemia having worsening renal function and hypokalemia. We will hold off on diuretics for now. As far as his diabetes, we will put him on diabetic renal diet. Put him on glimepiride 1 mg p.o. daily and I put him on a low dose Humalog insulin sliding scale before meals t.i.d. and then we will put him on heparin for deep vein thrombosis prophylaxis. Discontinue the Levaquin and vancomycin that he received in the emergency room, I do not think he has pneumonia. I just got the patient in the emergency room, so that he got medications. He got 20 mEq of potassium chloride IV in the emergency room that was burning through the IV and were given 40 mEq of potassium chloride p.o. x1. Repeat a CBC, BMP and magnesium tomorrow. Physical and occupational therapy has been ordered. He wishes to be a full code. Put him on a cardiac renal diet. Check his blood sugars before meals t.i.d. and at bedtime. LORI DR: Breonna TID: [id number]
[2020-12-16 18:58] VITALS: BP 99/59
[2020-12-16 19:25] VITALS: BP 101/63
--- NOTE | 2020-12-16 19:25 | NUR ---
Pt in bed assessment completed vss poc explained pt denied pain, call light in reach will resume care and continue to monitor pt. Pt reminded to call for assistance prior to getting oob.
[2020-12-16] MEDS: SODIUM CHLORIDE 0.65% NASAL SPRAY 45ML BOTTLE. NS SCH (21:43)
[2020-12-16] MEDS: METOPROLOL TART IMMED RELEASE 25 MG TABLET. PO SCH (21:44)
[2020-12-16] MEDS: HEPARIN for SUB-Q USE 5,000 UNIT/ML VIAL. SQ SCH (21:47)
[2020-12-16 22:13] VITALS: BP 95/61
[2020-12-17 03:13] VITALS: BP 101/63
[2020-12-17 03:13] LABS: BASO % 0 % (0-3); EOS # 0.3 x10^3/uL (0.0-0.7); EOS % 3 % (0-3); HEMATOCRIT 33.1 % (39.0-53.0); HEMOGLOBIN 11.7 g/dL (13.0-17.5); LYMPH # 0.6 x10^3/uL (1.0-4.8); LYMPH % 6 % (24-48); MEAN CORPUSCULAR HEMOGLOBIN 30 pg (25-35); MEAN CORPUSCULAR HGB CONC 35 g/dL (31-37); MEAN CORPUSCULAR VOLUME 86 fL (79-100); MONO # 1.5 x10^3/uL (0.0-1.1); MONO % 15 % (0-9); NEUT # 7.2 x10^3/uL (1.8-7.7); NEUT % 75 % (31-73); PLATELET COUNT 312 x10^3/uL (140-400); RED BLOOD COUNT 3.87 x10^6/uL (4.30-5.70); RED CELL DISTRIBUTION WIDTH 13.9 % (11.5-14.5); WHITE BLOOD COUNT 9.6 x10^3/uL (4.0-11.0)
[2020-12-17 03:18] LABS: CALCIUM 8.9 mg/dL (8.5-10.1); CREATININE 1.8 mg/dL (0.7-1.3); GFR 37.6
[2020-12-17 03:20] LABS: POTASSIUM 2.7 mmol/L (3.5-5.1)
[2020-12-17] MEDS ORDERED: TORS100T3 PO (03:51)
[2020-12-17] MEDS ORDERED: NYST15PO2 TP (03:51)
[2020-12-17] MEDS ORDERED: POTA20TA4 PO (03:51)
[2020-12-17] MEDS ORDERED: COLL226C TP (03:51)
[2020-12-17] MEDS ORDERED: GLIM1TAB7 PO (03:51)
[2020-12-17] MEDS ORDERED: FLUT16SP NS (03:51)
[2020-12-17] MEDS ORDERED: SODI44SP NS (03:51)
[2020-12-17] MEDS ORDERED: ACET325T21 PO (03:51)
[2020-12-17] MEDS: POTASSIUM CHLORIDE 10MEQ 100 ML IV SCH ×4 (03:59→07:00)
[2020-12-17 07:00] VITALS: BP 111/69
[2020-12-17] MEDS: INSULIN LISPRO 300 UNITS/3 ML VIAL. SQ SCH ×3 (08:00→17:00)
[2020-12-17] MEDS: SODIUM CHLORIDE 0.65% NASAL SPRAY 45ML BOTTLE. NS SCH ×3 (09:00→21:00)
[2020-12-17] MEDS: FLUTICASONE 50MCG/NASAL SPRAY 16GM BOTTLE. NS SCH (09:00)
[2020-12-17] MEDS: FAMOTIDINE 20 MG TABLET. PO SCH (09:00)
--- NOTE | 2020-12-17 09:10 | PDOC ---
PULMONARY PROGRESS NOTES DATE: 12/17/20 TIME: 09:09 Vitals Vital Signs Date Time Temp Pulse Resp B/P (MAP) Pulse Ox O2 Delivery O2 Flow Rate FiO2 12/17/20 07:00 98.2 75 16 111/69 (83) 97 Nasal Cannula 98.2 12/17/20 03:13 2.0 General: Alert HEENT: Other Lungs: Clear Cardiovascular: S1, S2 Abdomen: Soft, Non-tender Extremities: Other Labs Laboratory Tests Test 12/16/20 14:30 12/16/20 18:22 12/16/20 19:50 12/16/20 20:45 White Blood Count 8.2 x10^3/uL (4.0-11.0) Red Blood Count 4.13 x10^6/uL (4.30-5.70) Hemoglobin 12.4 g/dL (13.0-17.5) Hematocrit 35.8 % (39.0-53.0) Mean Corpuscular Volume 87 fL (79-100) Mean Corpuscular Hemoglobin 30 pg (25-35) Mean Corpuscular Hemoglobin Concent 35 g/dL (31-37) Red Cell Distribution Width 13.8 % (11.5-14.5) Platelet Count 314 x10^3/uL (140-400) Neutrophils (%) (Auto) 77 % (31-73) Lymphocytes (%) (Auto) 6 % (24-48) Monocytes (%) (Auto) 13 % (0-9) Eosinophils (%) (Auto) 4 % (0-3) Basophils (%) (Auto) 0 % (0-3) Neutrophils # (Auto) 6.3 x10^3/uL (1.8-7.7) Lymphocytes # (Auto) 0.5 x10^3/uL (1.0-4.8) Monocytes # (Auto) 1.1 x10^3/uL (0.0-1.1) Eosinophils # (Auto) 0.3 x10^3/uL (0.0-0.7) Basophils # (Auto) 0.0 x10^3/uL (0.0-0.2) Sodium Level 138 mmol/L (136-145) Potassium Level 2.2 mmol/L (3.5-5.1) Chloride Level 92 mmol/L (98-107) Carbon Dioxide Level 39 mmol/L (21-32) Anion Gap 7 (6-14) Blood Urea Nitrogen 89 mg/dL (8-26) Creatinine 1.6 mg/dL (0.7-1.3) Estimated GFR (Cockcroft-Gault) 43.1 Glucose Level 280 mg/dL (70-99) Lactic Acid Level 1.8 mmol/L (0.4-2.0) Calcium Level 9.3 mg/dL (8.5-10.1) Magnesium Level 2.0 mg/dL (1.8-2.4) Total Bilirubin 0.8 mg/dL (0.2-1.0) Direct Bilirubin 0.3 mg/dL (0.0-0.2) Aspartate Amino Transf (AST/SGOT) 21 U/L (15-37) Alanine Aminotransferase (ALT/SGPT) 17 U/L (16-63) Alkaline Phosphatase 101 U/L (46-116) Troponin I Quantitative 0.071 ng/mL (0.000-0.055) 0.079 ng/mL (0.000-0.055) ID-Eae-H-Type Natriuretic Peptide 4528 pg/mL (0-124) Total Protein 7.7 g/dL (6.4-8.2) Albumin 3.1 g/dL (3.4-5.0) Lipase 222 U/L (73-393) Procalcitonin 0.12 ng/mL (0.00-0.10) Glucose (Fingerstick) 172 mg/dL (70-99) 248 mg/dL (70-99) Test 12/17/20 00:30 12/17/20 00:45 12/17/20 08:14 Troponin I Quantitative 0.079 ng/mL (0.000-0.055) White Blood Count 9.6 x10^3/uL (4.0-11.0) Red Blood Count 3.87 x10^6/uL (4.30-5.70) Hemoglobin 11.7 g/dL (13.0-17.5) Hematocrit 33.1 % (39.0-53.0) Mean Corpuscular Volume 86 fL (79-100) Mean Corpuscular Hemoglobin 30 pg (25-35) Mean Corpuscular Hemoglobin Concent 35 g/dL (31-37) Red Cell Distribution Width 13.9 % (11.5-14.5) Platelet Count 312 x10^3/uL (140-400) Neutrophils (%) (Auto) 75 % (31-73) Lymphocytes (%) (Auto) 6 % (24-48) Monocytes (%) (Auto) 15 % (0-9) Eosinophils (%) (Auto) 3 % (0-3) Basophils (%) (Auto) 0 % (0-3) Neutrophils # (Auto) 7.2 x10^3/uL (1.8-7.7) Lymphocytes # (Auto) 0.6 x10^3/uL (1.0-4.8) Monocytes # (Auto) 1.5 x10^3/uL (0.0-1.1) Eosinophils # (Auto) 0.3 x10^3/uL (0.0-0.7) Basophils # (Auto) 0.0 x10^3/uL (0.0-0.2) Sodium Level 141 mmol/L (136-145) Potassium Level 2.7 mmol/L (3.5-5.1) Chloride Level 97 mmol/L (98-107) Carbon Dioxide Level 38 mmol/L (21-32) Anion Gap 6 (6-14) Blood Urea Nitrogen 87 mg/dL (8-26) Creatinine 1.8 mg/dL (0.7-1.3) Estimated GFR (Cockcroft-Gault) 37.6 Glucose Level 117 mg/dL (70-99) Calcium Level 8.9 mg/dL (8.5-10.1) Magnesium Level 2.1 mg/dL (1.8-2.4) Triglycerides Level 65 mg/dL (0-150) Cholesterol Level 102 mg/dL (0-200) LDL Cholesterol, Calculated 55 mg/dL (0-100) VLDL Cholesterol, Calculated 13 mg/dL (0-40) Non-HDL Cholesterol Calculated 68 mg/dL (0-129) HDL Cholesterol 34 mg/dL (40-60) Cholesterol/HDL Ratio 3.0 Thyroid Stimulating Hormone (TSH) 2.158 uIU/mL (0.358-3.74) Glucose (Fingerstick) 147 mg/dL (70-99) Laboratory Tests Test 12/16/20 14:30 12/16/20 18:22 12/16/20 19:50 12/16/20 20:45 White Blood Count 8.2 x10^3/uL (4.0-11.0) Red Blood Count 4.13 x10^6/uL (4.30-5.70) Hemoglobin 12.4 g/dL (13.0-17.5) Hematocrit 35.8 % (39.0-53.0) Mean Corpuscular Volume 87 fL (79-100) Mean Corpuscular Hemoglobin 30 pg (25-35) Mean Corpuscular Hemoglobin Concent 35 g/dL (31-37) Red Cell Distribution Width 13.8 % (11.5-14.5) Platelet Count 314 x10^3/uL (140-400) Neutrophils (%) (Auto) 77 % (31-73) Lymphocytes (%) (Auto) 6 % (24-48) Monocytes (%) (Auto) 13 % (0-9) Eosinophils (%) (Auto) 4 % (0-3) Basophils (%) (Auto) 0 % (0-3) Neutrophils # (Auto) 6.3 x10^3/uL (1.8-7.7) Lymphocytes # (Auto) 0.5 x10^3/uL (1.0-4.8) Monocytes # (Auto) 1.1 x10^3/uL (0.0-1.1) Eosinophils # (Auto) 0.3 x10^3/uL (0.0-0.7) Basophils # (Auto) 0.0 x10^3/uL (0.0-0.2) Sodium Level 138 mmol/L (136-145) Potassium Level 2.2 mmol/L (3.5-5.1) Chloride Level 92 mmol/L (98-107) Carbon Dioxide Level 39 mmol/L (21-32) Anion Gap 7 (6-14) Blood Urea Nitrogen 89 mg/dL (8-26) Creatinine 1.6 mg/dL (0.7-1.3) Estimated GFR (Cockcroft-Gault) 43.1 Glucose Level 280 mg/dL (70-99) Lactic Acid Level 1.8 mmol/L (0.4-2.0) Calcium Level 9.3 mg/dL (8.5-10.1) Magnesium Level 2.0 mg/dL (1.8-2.4) Total Bilirubin 0.8 mg/dL (0.2-1.0) Direct Bilirubin 0.3 mg/dL (0.0-0.2) Aspartate Amino Transf (AST/SGOT) 21 U/L (15-37) Alanine Aminotransferase (ALT/SGPT) 17 U/L (16-63) Alkaline Phosphatase 101 U/L (46-116) Troponin I Quantitative 0.071 ng/mL (0.000-0.055) 0.079 ng/mL (0.000-0.055) TW-Hnf-F-Type Natriuretic Peptide 4528 pg/mL (0-124) Total Protein 7.7 g/dL (6.4-8.2) Albumin 3.1 g/dL (3.4-5.0) Lipase 222 U/L (73-393) Procalcitonin 0.12 ng/mL (0.00-0.10) Glucose (Fingerstick) 172 mg/dL (70-99) 248 mg/dL (70-99) Test 12/17/20 00:30 12/17/20 00:45 12/17/20 08:14 Troponin I Quantitative 0.079 ng/mL (0.000-0.055) White Blood Count 9.6 x10^3/uL (4.0-11.0) Red Blood Count 3.87 x10^6/uL (4.30-5.70) Hemoglobin 11.7 g/dL (13.0-17.5) Hematocrit 33.1 % (39.0-53.0) Mean Corpuscular Volume 86 fL (79-100) Mean Corpuscular Hemoglobin 30 pg (25-35) Mean Corpuscular Hemoglobin Concent 35 g/dL (31-37) Red Cell Distribution Width 13.9 % (11.5-14.5) Platelet Count 312 x10^3/uL (140-400) Neutrophils (%) (Auto) 75 % (31-73) Lymphocytes (%) (Auto) 6 % (24-48) Monocytes (%) (Auto) 15 % (0-9) Eosinophils (%) (Auto) 3 % (0-3) Basophils (%) (Auto) 0 % (0-3) Neutrophils # (Auto) 7.2 x10^3/uL (1.8-7.7) Lymphocytes # (Auto) 0.6 x10^3/uL (1.0-4.8) Monocytes # (Auto) 1.5 x10^3/uL (0.0-1.1) Eosinophils # (Auto) 0.3 x10^3/uL (0.0-0.7) Basophils # (Auto) 0.0 x10^3/uL (0.0-0.2) Sodium Level 141 mmol/L (136-145) Potassium Level 2.7 mmol/L (3.5-5.1) Chloride Level 97 mmol/L (98-107) Carbon Dioxide Level 38 mmol/L (21-32) Anion Gap 6 (6-14) Blood Urea Nitrogen 87 mg/dL (8-26) Creatinine 1.8 mg/dL (0.7-1.3) Estimated GFR (Cockcroft-Gault) 37.6 Glucose Level 117 mg/dL (70-99) Calcium Level 8.9 mg/dL (8.5-10.1) Magnesium Level 2.1 mg/dL (1.8-2.4) Triglycerides Level 65 mg/dL (0-150) Cholesterol Level 102 mg/dL (0-200) LDL Cholesterol, Calculated 55 mg/dL (0-100) VLDL Cholesterol, Calculated 13 mg/dL (0-40) Non-HDL Cholesterol Calculated 68 mg/dL (0-129) HDL Cholesterol 34 mg/dL (40-60) Cholesterol/HDL Ratio 3.0 Thyroid Stimulating Hormone (TSH) 2.158 uIU/mL (0.358-3.74) Glucose (Fingerstick) 147 mg/dL (70-99) Medications Active Scripts Medications Dose Route/Sig Max Daily Dose Days Date Category Nyamyc (Nystatin) 15 Gm Powder 15 Gm TP BID 12/17/20 Reported Torsemide 100 Mg Tablet 1 Tab PO DAILY 30 12/17/20 Reported Klor-Con M20 (Potassium Chloride) 20 Meq Tab.er.prt 1 Tab PO HS 30 12/17/20 Reported Glimepiride 1 Mg Tablet 1 Tab PO DAILY 12/17/20 Reported Fluticasone Propionate Nasal [place] (Fluticasone Propionate) 16 Gm [place].susp 2 [place] NS BID 12/17/20 Reported Eucerin Eczema Relief (Colloidal Oatmeal) 226 Gm Cream..g. 1 Kristen TP BID 30 12/17/20 Reported Deep Sea (Sodium Chloride) 44 Ml [place] 44 Ml NS TID 12/17/20 Reported Acetaminophen 325 Mg Tablet 1 Tab PO TID PRN 30 12/17/20 Reported Magnesium Oxide 400 Mg Tablet 800 Mg PO DAILY 05/16/20 Rx Metoprolol Tartrate 25 Mg Tablet 12.5 Mg PO BID 05/16/20 Rx Impression . Chest x-ray reviewed, some pleural thickening, suspect Pleurx catheter acted as a pleurodesis agent. No need for Pleurx catheter, Discontinue Pleurx catheter Continue diuresis No need for antibiotic KIM DOLL MD Dec 17, 2020 09:10
--- NOTE | 2020-12-17 10:35 | PDOC ---
PROGRESS NOTES Date of Service DATE: 12/17/20 TIME: 10:30 Subjective Subjective feels okay not short of breath at rest. lab reviewed. potassium 2.7 bun 87 and creatinine 1.8. magnesium 2.1. returned from echo. nurse says dr flores will have IR remove pleurex Objective Objective Vital Signs Date Time Temp Pulse Resp B/P (MAP) Pulse Ox O2 Delivery O2 Flow Rate FiO2 12/17/20 07:00 98.2 75 16 111/69 (83) 97 Nasal Cannula 98.2 12/17/20 03:13 2.0 Intake and Output 12/17/20 07:00 Intake Total 300 ml Output Total 1775 ml Balance -1475 ml Intake Oral 300 ml Output Urine Total 1775 ml Physical Exam Abdomen: Soft Heart: Regular rate, Normal S1, Normal S2, Other (2/6 systolic murmur LSB and apex) Extremities: No edema General: Alert HEENT: Atraumatic Lungs: Other (decreased breath sound right base. few bibasilar crackles) Neuro: Normal speech Psych/Mental Status: Mental status NL Skin: No rashes Assessment Assessment Problems1. Acute on chronic diastolic congestive heart failure. 2. Acute kidney injury on top of chronic kidney disease stage III, possibly secondary to intravascular volume depletion from his diuretics he took prior to admission. 3. Severe hypokalemia. 4. Bilateral pleural effusions.mild 5. 6. Paroxysmal atrial fibrillation, currently in sinus rhythm, off of Eliquis due to recurrent and significant nosebleeds and he stopped the Eliquis himself about 6 months ago. 7. Diabetes mellitus type 2 with nephropathy. 8. Moderate aortic stenosis. 9. Nonobstructive coronary artery disease. 10. Acute on chronic hypoxic respiratory failure. Medical Problems: (1) Hypokalemia Status: Acute (2) Pleural effusion Status: Acute Plan Plan of Care replete kcl echo results pending remove Pleurex tube today PT and OT lab tomorrow hold diuretics continue oxygen continue glimepiride and humalog sliding scale heparin for dvt prophylaxis continue famotidine Comment Review of Relevant I have reviewed the following items stewart (where applicable) has been applied. Labs Laboratory Tests Test 12/16/20 14:30 12/16/20 18:22 12/16/20 19:50 12/16/20 20:45 White Blood Count 8.2 x10^3/uL (4.0-11.0) Red Blood Count 4.13 x10^6/uL (4.30-5.70) Hemoglobin 12.4 g/dL (13.0-17.5) Hematocrit 35.8 % (39.0-53.0) Mean Corpuscular Volume 87 fL (79-100) Mean Corpuscular Hemoglobin 30 pg (25-35) Mean Corpuscular Hemoglobin Concent 35 g/dL (31-37) Red Cell Distribution Width 13.8 % (11.5-14.5) Platelet Count 314 x10^3/uL (140-400) Neutrophils (%) (Auto) 77 % (31-73) Lymphocytes (%) (Auto) 6 % (24-48) Monocytes (%) (Auto) 13 % (0-9) Eosinophils (%) (Auto) 4 % (0-3) Basophils (%) (Auto) 0 % (0-3) Neutrophils # (Auto) 6.3 x10^3/uL (1.8-7.7) Lymphocytes # (Auto) 0.5 x10^3/uL (1.0-4.8) Monocytes # (Auto) 1.1 x10^3/uL (0.0-1.1) Eosinophils # (Auto) 0.3 x10^3/uL (0.0-0.7) Basophils # (Auto) 0.0 x10^3/uL (0.0-0.2) Sodium Level 138 mmol/L (136-145) Potassium Level 2.2 mmol/L (3.5-5.1) Chloride Level 92 mmol/L (98-107) Carbon Dioxide Level 39 mmol/L (21-32) Anion Gap 7 (6-14) Blood Urea Nitrogen 89 mg/dL (8-26) Creatinine 1.6 mg/dL (0.7-1.3) Estimated GFR (Cockcroft-Gault) 43.1 Glucose Level 280 mg/dL (70-99) Lactic Acid Level 1.8 mmol/L (0.4-2.0) Calcium Level 9.3 mg/dL (8.5-10.1) Magnesium Level 2.0 mg/dL (1.8-2.4) Total Bilirubin 0.8 mg/dL (0.2-1.0) Direct Bilirubin 0.3 mg/dL (0.0-0.2) Aspartate Amino Transf (AST/SGOT) 21 U/L (15-37) Alanine Aminotransferase (ALT/SGPT) 17 U/L (16-63) Alkaline Phosphatase 101 U/L (46-116) Troponin I Quantitative 0.071 ng/mL (0.000-0.055) 0.079 ng/mL (0.000-0.055) OO-Dxv-K-Type Natriuretic Peptide 4528 pg/mL (0-124) Total Protein 7.7 g/dL (6.4-8.2) Albumin 3.1 g/dL (3.4-5.0) Lipase 222 U/L (73-393) Procalcitonin 0.12 ng/mL (0.00-0.10) Glucose (Fingerstick) 172 mg/dL (70-99) 248 mg/dL (70-99) Test 12/17/20 00:30 12/17/20 00:45 12/17/20 08:14 Troponin I Quantitative 0.079 ng/mL (0.000-0.055) White Blood Count 9.6 x10^3/uL (4.0-11.0) Red Blood Count 3.87 x10^6/uL (4.30-5.70) Hemoglobin 11.7 g/dL (13.0-17.5) Hematocrit 33.1 % (39.0-53.0) Mean Corpuscular Volume 86 fL (79-100) Mean Corpuscular Hemoglobin 30 pg (25-35) Mean Corpuscular Hemoglobin Concent 35 g/dL (31-37) Red Cell Distribution Width 13.9 % (11.5-14.5) Platelet Count 312 x10^3/uL (140-400) Neutrophils (%) (Auto) 75 % (31-73) Lymphocytes (%) (Auto) 6 % (24-48) Monocytes (%) (Auto) 15 % (0-9) Eosinophils (%) (Auto) 3 % (0-3) Basophils (%) (Auto) 0 % (0-3) Neutrophils # (Auto) 7.2 x10^3/uL (1.8-7.7) Lymphocytes # (Auto) 0.6 x10^3/uL (1.0-4.8) Monocytes # (Auto) 1.5 x10^3/uL (0.0-1.1) Eosinophils # (Auto) 0.3 x10^3/uL (0.0-0.7) Basophils # (Auto) 0.0 x10^3/uL (0.0-0.2) Sodium Level 141 mmol/L (136-145) Potassium Level 2.7 mmol/L (3.5-5.1) Chloride Level 97 mmol/L (98-107) Carbon Dioxide Level 38 mmol/L (21-32) Anion Gap 6 (6-14) Blood Urea Nitrogen 87 mg/dL (8-26) Creatinine 1.8 mg/dL (0.7-1.3) Estimated GFR (Cockcroft-Gault) 37.6 Glucose Level 117 mg/dL (70-99) Calcium Level 8.9 mg/dL (8.5-10.1) Magnesium Level 2.1 mg/dL (1.8-2.4) Triglycerides Level 65 mg/dL (0-150) Cholesterol Level 102 mg/dL (0-200) LDL Cholesterol, Calculated 55 mg/dL (0-100) VLDL Cholesterol, Calculated 13 mg/dL (0-40) Non-HDL Cholesterol Calculated 68 mg/dL (0-129) HDL Cholesterol 34 mg/dL (40-60) Cholesterol/HDL Ratio 3.0 Thyroid Stimulating Hormone (TSH) 2.158 uIU/mL (0.358-3.74) Glucose (Fingerstick) 147 mg/dL (70-99) Laboratory Tests Test 12/16/20 14:30 12/16/20 18:22 12/16/20 19:50 12/16/20 20:45 White Blood Count 8.2 x10^3/uL (4.0-11.0) Red Blood Count 4.13 x10^6/uL (4.30-5.70) Hemoglobin 12.4 g/dL (13.0-17.5) Hematocrit 35.8 % (39.0-53.0) Mean Corpuscular Volume 87 fL (79-100) Mean Corpuscular Hemoglobin 30 pg (25-35) Mean Corpuscular Hemoglobin Concent 35 g/dL (31-37) Red Cell Distribution Width 13.8 % (11.5-14.5) Platelet Count 314 x10^3/uL (140-400) Neutrophils (%) (Auto) 77 % (31-73) Lymphocytes (%) (Auto) 6 % (24-48) Monocytes (%) (Auto) 13 % (0-9) Eosinophils (%) (Auto) 4 % (0-3) Basophils (%) (Auto) 0 % (0-3) Neutrophils # (Auto) 6.3 x10^3/uL (1.8-7.7) Lymphocytes # (Auto) 0.5 x10^3/uL (1.0-4.8) Monocytes # (Auto) 1.1 x10^3/uL (0.0-1.1) Eosinophils # (Auto) 0.3 x10^3/uL (0.0-0.7) Basophils # (Auto) 0.0 x10^3/uL (0.0-0.2) Sodium Level 138 mmol/L (136-145) Potassium Level 2.2 mmol/L (3.5-5.1) Chloride Level 92 mmol/L (98-107) Carbon Dioxide Level 39 mmol/L (21-32) Anion Gap 7 (6-14) Blood Urea Nitrogen 89 mg/dL (8-26) Creatinine 1.6 mg/dL (0.7-1.3) Estimated GFR (Cockcroft-Gault) 43.1 Glucose Level 280 mg/dL (70-99) Lactic Acid Level 1.8 mmol/L (0.4-2.0) Calcium Level 9.3 mg/dL (8.5-10.1) Magnesium Level 2.0 mg/dL (1.8-2.4) Total Bilirubin 0.8 mg/dL (0.2-1.0) Direct Bilirubin 0.3 mg/dL (0.0-0.2) Aspartate Amino Transf (AST/SGOT) 21 U/L (15-37) Alanine Aminotransferase (ALT/SGPT) 17 U/L (16-63) Alkaline Phosphatase 101 U/L (46-116) Troponin I Quantitative 0.071 ng/mL (0.000-0.055) 0.079 ng/mL (0.000-0.055) KE-Bjo-C-Type Natriuretic Peptide 4528 pg/mL (0-124) Total Protein 7.7 g/dL (6.4-8.2) Albumin 3.1 g/dL (3.4-5.0) Lipase 222 U/L (73-393) Procalcitonin 0.12 ng/mL (0.00-0.10) Glucose (Fingerstick) 172 mg/dL (70-99) 248 mg/dL (70-99) Test 12/17/20 00:30 12/17/20 00:45 12/17/20 08:14 Troponin I Quantitative 0.079 ng/mL (0.000-0.055) White Blood Count 9.6 x10^3/uL (4.0-11.0) Red Blood Count 3.87 x10^6/uL (4.30-5.70) Hemoglobin 11.7 g/dL (13.0-17.5) Hematocrit 33.1 % (39.0-53.0) Mean Corpuscular Volume 86 fL (79-100) Mean Corpuscular Hemoglobin 30 pg (25-35) Mean Corpuscular Hemoglobin Concent 35 g/dL (31-37) Red Cell Distribution Width 13.9 % (11.5-14.5) Platelet Count 312 x10^3/uL (140-400) Neutrophils (%) (Auto) 75 % (31-73) Lymphocytes (%) (Auto) 6 % (24-48) Monocytes (%) (Auto) 15 % (0-9) Eosinophils (%) (Auto) 3 % (0-3) Basophils (%) (Auto) 0 % (0-3) Neutrophils # (Auto) 7.2 x10^3/uL (1.8-7.7) Lymphocytes # (Auto) 0.6 x10^3/uL (1.0-4.8) Monocytes # (Auto) 1.5 x10^3/uL (0.0-1.1) Eosinophils # (Auto) 0.3 x10^3/uL (0.0-0.7) Basophils # (Auto) 0.0 x10^3/uL (0.0-0.2) Sodium Level 141 mmol/L (136-145) Potassium Level 2.7 mmol/L (3.5-5.1) Chloride Level 97 mmol/L (98-107) Carbon Dioxide Level 38 mmol/L (21-32) Anion Gap 6 (6-14) Blood Urea Nitrogen 87 mg/dL (8-26) Creatinine 1.8 mg/dL (0.7-1.3) Estimated GFR (Cockcroft-Gault) 37.6 Glucose Level 117 mg/dL (70-99) Calcium Level 8.9 mg/dL (8.5-10.1) Magnesium Level 2.1 mg/dL (1.8-2.4) Triglycerides Level 65 mg/dL (0-150) Cholesterol Level 102 mg/dL (0-200) LDL Cholesterol, Calculated 55 mg/dL (0-100) VLDL Cholesterol, Calculated 13 mg/dL (0-40) Non-HDL Cholesterol Calculated 68 mg/dL (0-129) HDL Cholesterol 34 mg/dL (40-60) Cholesterol/HDL Ratio 3.0 Thyroid Stimulating Hormone (TSH) 2.158 uIU/mL (0.358-3.74) Glucose (Fingerstick) 147 mg/dL (70-99) Medications Current Medications Potassium Chloride/Water 100 ml @ 50 mls/hr 1X ONCE IV Last administered on 12/16/20at 16:21; Start 12/16/20 at 16:15; Stop 12/16/20 at 18:14; Status DC Vancomycin HCl (Vanco Per Pharmacy) 1 each PRN DAILY PRN [facility] SEE COMMENTS; Start 12/16/20 at 16:15; Stop 12/16/20 at 16:53; Status DC Levofloxacin/ Dextrose (Levaquin Per Pharmacy) 1 each PRN DAILY PRN [facility] SEE COMMENTS; Start 12/16/20 at 16:15; Stop 12/16/20 at 16:53; Status DC Levofloxacin/ Dextrose 150 ml @ 100 mls/hr Q48H IV Last administered on 12/16/20at 16:33; Start 12/16/20 at 17:00; Stop 12/16/20 at 16:53; Status DC Vancomycin HCl 250 ml @ 250 mls/hr 1X ONCE IV Last administered on 12/16/20at 16:37; Start 12/16/20 at 17:00; Stop 12/16/20 at 16:53; Status DC Heparin Sodium (Porcine) (Heparin Sodium) 5,000 unit BID SQ Last administered on 12/16/20at 21:47; Start 12/16/20 at 21:00 Glimepiride (Amaryl) 1 mg DAILY PO ; Start 12/17/20 at 09:00 Insulin Human Lispro (HumaLOG) 0-6 UNITS BG 300-39... TIDWMEALS SQ ; Start 12/16/20 at 17:00 Acetaminophen (Tylenol) 650 mg PRN Q6HRS PRN PO MILD PAIN / TEMP > 100.3'F; Start 12/16/20 at 16:45 Potassium Chloride (Klor-Con) 40 meq 1X ONCE PO Last administered on 12/16/20at 17:41; Start 12/16/20 at 16:45; Stop 12/16/20 at 16:55; Status DC Magnesium Oxide (Magnesium Oxide) 400 mg DAILY PO ; Start 12/17/20 at 09:00 Metoprolol Tartrate (Lopressor) 12.5 mg BID PO Last administered on 12/16/20at 21:44; Start 12/16/20 at 21:00 Sodium Chloride (Saline Mist Nasal) 1 kristen TID NS ; Start 12/16/20 at 21:00 Fluticasone Propionate (Flonase) 2 spray DAILY NS ; Start 12/17/20 at 09:00 Sodium Chloride 100 ml @ 0 mls/hr Q0M IV ; Start 12/16/20 at 17:30; Stop 12/16/20 at 21:29; Status DC Potassium Chloride (Klor-Con) 20 meq 1X ONCE PO Last administered on 12/16/20at 21:44; Start 12/16/20 at 21:00; Stop 12/16/20 at 21:01; Status DC Famotidine (Pepcid) 20 mg DAILY PO ; Start 12/17/20 at 09:00 Potassium Chloride/Water 100 ml @ 100 mls/hr Q1H IV Last administered on 12/17/20at 06:30; Start 12/17/20 at 04:00; Stop 12/17/20 at 07:59; Status DC Potassium Chloride (Klor-Con) 40 meq 1X ONCE PO ; Start 12/17/20 at 10:45; Stop 12/17/20 at 10:46 Active Scripts Active Magnesium Oxide 400 Mg Tablet 800 Mg PO DAILY Metoprolol Tartrate 25 Mg Tablet 12.5 Mg PO BID Reported Nyamyc (Nystatin) 15 Gm Powder 15 Gm TP BID Torsemide 100 Mg Tablet 1 Tab PO DAILY 30 Days Klor-Con M20 (Potassium Chloride) 20 Meq Tab.er.prt 1 Tab PO HS 30 Days Glimepiride 1 Mg Tablet 1 Tab PO DAILY Fluticasone Propionate Nasal [place] (Fluticasone Propionate) 16 Gm [place].susp 2 [place] NS BID Eucerin Eczema Relief (Colloidal Oatmeal) 226 Gm Cream..g. 1 Kristen TP BID 30 Days Deep Sea (Sodium Chloride) 44 Ml [place] 44 Ml NS TID Acetaminophen 325 Mg Tablet 1 Tab PO TID PRN 30 Days Vitals/I & O Vital Sign - Last 24 Hours 12/16/20 12/16/20 12/16/20 12/16/20 14:05 14:27 15:27 16:27 Temp 98.6 98.6 Pulse 68 62 60 60 Resp 24 B/P (MAP) 116/67 (83) 112/64 (80) 104/61 (75) 104/60 (75) Pulse Ox 99 100 100 100 O2 Delivery Nasal Cannula Room Air Room Air Nasal Cannula O2 Flow Rate 3.0 3.0 12/16/20 12/16/20 12/16/20 12/16/20 17:05 18:58 19:25 19:25 Temp 97.9 98.3 97.9 98.3 Pulse 63 64 65 Resp 16 18 B/P (MAP) 111/65 (80) 99/59 (72) 101/63 (76) Pulse Ox 100 100 100 O2 Delivery Nasal Cannula Room Air Nasal Cannula Nasal Cannula O2 Flow Rate 3.0 2.0 2.0 12/16/20 12/16/20 12/17/20 12/17/20 21:44 22:13 03:13 07:00 Temp 98.2 98.3 98.2 98.2 98.3 98.2 Pulse 65 67 70 75 Resp 18 18 16 B/P (MAP) 101/63 95/61 (72) 101/63 (76) 111/69 (83) Pulse Ox 99 98 97 O2 Delivery Nasal Cannula Nasal Cannula Nasal Cannula O2 Flow Rate 2.0 2.0 Intake and Output 12/16/20 12/16/20 12/17/20 15:00 23:00 07:00 Intake Total 300 ml Output Total 800 ml 975 ml Balance -800 ml -675 ml Justifications for Admission Other Justification DALIA FRANKLIN MD Dec 17, 2020 10:35
[2020-12-17] MEDS ORDERED: POTASSIUM CHLORIDE 20 MEQ TABLET.ER. PO ONE ×2 (10:45→18:00)
[2020-12-17 11:04] VITALS: BP 104/63
[2020-12-17] MEDS ORDERED: LIDOCAINE 1%/EPI 1:100,000 20 ML VIAL. ONE (11:40)
--- NOTE | 2020-12-17 11:56 | PDOC2 ---
CONSULT Date of Consult Date of Consult DATE: 12/17/20 TIME: 11:34 Reason for Consult Reason for Consult: CAREY on CKD Source Source: Chart review, Patient History of Present Illness Reason for Visit: Patient is a 70-year-old CM with history of chronic diastolic congestive heart failure, moderate aortic stenosis,paroxysmal atrial fibrillation, chronic kidney disease stage III, diabetes mellitus type 2 lives in assisted living facility. . He has a PleurX tube in the right chest for recurrent transudative pleural effusions for 6 months wasand apparently and apparently has been clotted for one week patient noticed it to be being blood-tinged recently . Normally the fluid is removed about twice a week. He was sent to the emergency room apparently by the visiting nurse because of malfunction of the PleurX tube and also some shortness of breath, dyspnea on exe rtion. He is on oxygen at home about 2-1/2 liters per nasal cannula. He has indwelling campbell catheter- chronic for past few months- he reports he had significant swelling in his legs /Weeping required aggressive diuresis; Campbell placed to monitor urine output . He denies any N/V/No F/C. No CP or abdominal pain. He has Hx of Kidney stones- passed 3 stones in distant past . Denies using NSAID's . Per his med list he is on Torsemide 100 mg at home and PO KCL . He denies any LE edema, No dizziness or lightheadedness Past Medical History Past Medical History Chronic hypoxic respiratory failure, chronic diastolic congestive heart failure, moderate aortic stenosis, paroxysmal atrial fibrillation, previously treated with Eliquis, but he stopped the Eliquis because he was having significant nosebleeds lasting 24 hours. He has been off the Eliquis at least 6 months . Nonobstructive coronary artery disease, bilateral transudative pleural effusions and he has had thoracentesis in the past and he has had a right PleurX tube placed about 6 months ago. Diabetes mellitus type 2 with nephropathy. Hx of urinary tract infections in the past Moderate pulmonary hypertension Cardiovascular: AFIB, CHF, HTN, Aortic stenosis Pulmonary: Pneumonia, Other CENTRAL NERVOUS SYSTEM: Other GI: Other Musculoskeletal: Osteoarthritis, Other Renal/: Chronic renal failure, Benign prostatic enlarg., Other Endocrine: Diabetes Past Surgical History Past Surgical History He had a left adrenal adenectomy for a benign adrenal mass associated with hyperaldosteronism few years ago. Past Surgical History: Other Family History Family History Non Contributory Family History: Diabetes Social History Social History Drinks some alcohol in the past,. He does not smoke. He lives in assisted living facility and uses a walker. ALCOHOL: other Drugs: None Lives: with Family Current Problem List Problem List Problems Medical Problems: (1) Hypokalemia Status: Acute (2) Pleural effusion Status: Acute Current Medications Current Medications Current Medications Potassium Chloride/Water 100 ml @ 50 mls/hr 1X ONCE IV Last administered on 12/16/20at 16:21; Start 12/16/20 at 16:15; Stop 12/16/20 at 18:14; Status DC Vancomycin HCl (Vanco Per Pharmacy) 1 each PRN DAILY PRN [facility] SEE COMMENTS; Start 12/16/20 at 16:15; Stop 12/16/20 at 16:53; Status DC Levofloxacin/ Dextrose (Levaquin Per Pharmacy) 1 each PRN DAILY PRN [facility] SEE COMMENTS; Start 12/16/20 at 16:15; Stop 12/16/20 at 16:53; Status DC Levofloxacin/ Dextrose 150 ml @ 100 mls/hr Q48H IV Last administered on 12/16/20at 16:33; Start 12/16/20 at 17:00; Stop 12/16/20 at 16:53; Status DC Vancomycin HCl 250 ml @ 250 mls/hr 1X ONCE IV Last administered on 12/16/20at 16:37; Start 12/16/20 at 17:00; Stop 12/16/20 at 16:53; Status DC Heparin Sodium (Porcine) (Heparin Sodium) 5,000 unit BID SQ Last administered on 12/16/20at 21:47; Start 12/16/20 at 21:00 Glimepiride (Amaryl) 1 mg DAILY PO ; Start 12/17/20 at 09:00 Insulin Human Lispro (HumaLOG) 0-6 UNITS BG 300-39... TIDWMEALS SQ ; Start 12/16/20 at 17:00 Acetaminophen (Tylenol) 650 mg PRN Q6HRS PRN PO MILD PAIN / TEMP > 100.3'F; Start 12/16/20 at 16:45 Potassium Chloride (Klor-Con) 40 meq 1X ONCE PO Last administered on 12/16/20at 17:41; Start 12/16/20 at 16:45; Stop 12/16/20 at 16:55; Status DC Magnesium Oxide (Magnesium Oxide) 400 mg DAILY PO ; Start 12/17/20 at 09:00 Metoprolol Tartrate (Lopressor) 12.5 mg BID PO Last administered on 12/16/20at 21:44; Start 12/16/20 at 21:00 Sodium Chloride (Saline Mist Nasal) 1 kristen TID NS ; Start 12/16/20 at 21:00 Fluticasone Propionate (Flonase) 2 spray DAILY NS ; Start 12/17/20 at 09:00 Sodium Chloride 100 ml @ 0 mls/hr Q0M IV ; Start 12/16/20 at 17:30; Stop 12/16/20 at 21:29; Status DC Potassium Chloride (Klor-Con) 20 meq 1X ONCE PO Last administered on 12/16/20at 21:44; Start 12/16/20 at 21:00; Stop 12/16/20 at 21:01; Status DC Famotidine (Pepcid) 20 mg DAILY PO ; Start 12/17/20 at 09:00 Potassium Chloride/Water 100 ml @ 100 mls/hr Q1H IV Last administered on 12/17/20at 06:30; Start 12/17/20 at 04:00; Stop 12/17/20 at 07:59; Status DC Potassium Chloride (Klor-Con) 40 meq 1X ONCE PO ; Start 12/17/20 at 10:45; Stop 12/17/20 at 10:46; Status DC Active Scripts Active Magnesium Oxide 400 Mg Tablet 800 Mg PO DAILY Metoprolol Tartrate 25 Mg Tablet 12.5 Mg PO BID Reported Nyamyc (Nystatin) 15 Gm Powder 15 Gm TP BID Torsemide 100 Mg Tablet 1 Tab PO DAILY 30 Days Klor-Con M20 (Potassium Chloride) 20 Meq Tab.er.prt 1 Tab PO HS 30 Days Glimepiride 1 Mg Tablet 1 Tab PO DAILY Fluticasone Propionate Nasal [place] (Fluticasone Propionate) 16 Gm [place].susp 2 [place] NS BID Eucerin Eczema Relief (Colloidal Oatmeal) 226 Gm Cream..g. 1 Kristen TP BID 30 Days Deep Sea (Sodium Chloride) 44 Ml [place] 44 Ml NS TID Acetaminophen 325 Mg Tablet 1 Tab PO TID PRN 30 Days Allergies Allergies: Coded Allergies: amoxicillin (Verified Allergy, Intermediate, Diarrhea, 5/9/18) clavulanic acid (Verified Allergy, Intermediate, Diarrhea, 11/07/17) clonidine (Verified Allergy, Intermediate, 11/07/17) hydrochlorothiazide (Verified Allergy, Intermediate, 04/27/20) irbesartan (Verified Allergy, Intermediate, 04/27/20) metformin (Verified Allergy, Intermediate, 04/27/20) pioglitazone (Verified Allergy, Intermediate, 11/07/17) ROS Review of System As per HPI, rest of the ROS is negative Physical Exam Physical Exam GEN NAD HEENT: OM mildly dry NECK: Supple HEART: S1, S2; grade II/ systolic murmur left sternal border, also heard at the axilla. LUNGS: few crackles in the left lung base and decreased breath sounds in right lung base. PleurX tube anteriorly in the right chest.; Non labored ABDOMEN: Soft with no hepatosplenomegaly, masses or tenderness. : Chronic Campbell catheter in place. EXTREMITIES: No LE edema SKIN: No rashes. NEURO; grossly normal Vital Signs Vital Signs Date Time Temp Pulse Resp B/P (MAP) Pulse Ox O2 Delivery O2 Flow Rate FiO2 12/17/20 11:04 97.7 71 14 104/63 (77) 98 Nasal Cannula 97.7 12/17/20 03:13 2.0 Assessment & Plan CAREY on CKD - Cardiorenal/Overdiuresis ; Non Oliguric, Has chronic campbell, UOP adequate ; Supportive care, Agree with holding Diuresis, Maintain hydration, NS boluses prn , dw RN HypoKalemia- severe- 2/2 diuretics , Currently on IV KCL replacement, Monitor and replace as indicated CKD stage 3A -Intermittent CAREY with Cr 1.6-2.0; he doesnt recall seeing a Water Pollution Scientist Nephrolithiasis - Remote Hx of passing kidney stones , none recently. US - Punctate bilateral intrarenal calculi identified. No obvious hydronephrosis Renal Cyst - 3.4 cm cyst left kidney. Acute on chronic diastolic congestive heart failure. Bilateral pleural effusions on CxR , Hx of recurrent effusions Malfunctioning of the PleurX tube in the right side. Paroxysmal atrial fibrillation, currently in sinus rhythm Diabetes mellitus type 2 with nephropathy. Moderate aortic stenosis. Nonobstructive coronary artery disease. Labs Labs Laboratory Tests Test 12/16/20 14:30 12/16/20 18:22 12/16/20 19:50 12/16/20 20:45 White Blood Count 8.2 x10^3/uL (4.0-11.0) Red Blood Count 4.13 x10^6/uL (4.30-5.70) Hemoglobin 12.4 g/dL (13.0-17.5) Hematocrit 35.8 % (39.0-53.0) Mean Corpuscular Volume 87 fL (79-100) Mean Corpuscular Hemoglobin 30 pg (25-35) Mean Corpuscular Hemoglobin Concent 35 g/dL (31-37) Red Cell Distribution Width 13.8 % (11.5-14.5) Platelet Count 314 x10^3/uL (140-400) Neutrophils (%) (Auto) 77 % (31-73) Lymphocytes (%) (Auto) 6 % (24-48) Monocytes (%) (Auto) 13 % (0-9) Eosinophils (%) (Auto) 4 % (0-3) Basophils (%) (Auto) 0 % (0-3) Neutrophils # (Auto) 6.3 x10^3/uL (1.8-7.7) Lymphocytes # (Auto) 0.5 x10^3/uL (1.0-4.8) Monocytes # (Auto) 1.1 x10^3/uL (0.0-1.1) Eosinophils # (Auto) 0.3 x10^3/uL (0.0-0.7) Basophils # (Auto) 0.0 x10^3/uL (0.0-0.2) Sodium Level 138 mmol/L (136-145) Potassium Level 2.2 mmol/L (3.5-5.1) Chloride Level 92 mmol/L (98-107) Carbon Dioxide Level 39 mmol/L (21-32) Anion Gap 7 (6-14) Blood Urea Nitrogen 89 mg/dL (8-26) Creatinine 1.6 mg/dL (0.7-1.3) Estimated GFR (Cockcroft-Gault) 43.1 Glucose Level 280 mg/dL (70-99) Lactic Acid Level 1.8 mmol/L (0.4-2.0) Calcium Level 9.3 mg/dL (8.5-10.1) Magnesium Level 2.0 mg/dL (1.8-2.4) Total Bilirubin 0.8 mg/dL (0.2-1.0) Direct Bilirubin 0.3 mg/dL (0.0-0.2) Aspartate Amino Transf (AST/SGOT) 21 U/L (15-37) Alanine Aminotransferase (ALT/SGPT) 17 U/L (16-63) Alkaline Phosphatase 101 U/L (46-116) Troponin I Quantitative 0.071 ng/mL (0.000-0.055) 0.079 ng/mL (0.000-0.055) KO-Vyn-S-Type Natriuretic Peptide 4528 pg/mL (0-124) Total Protein 7.7 g/dL (6.4-8.2) Albumin 3.1 g/dL (3.4-5.0) Lipase 222 U/L (73-393) Procalcitonin 0.12 ng/mL (0.00-0.10) Glucose (Fingerstick) 172 mg/dL (70-99) 248 mg/dL (70-99) Test 12/17/20 00:30 12/17/20 00:45 12/17/20 08:14 12/17/20 10:30 Troponin I Quantitative 0.079 ng/mL (0.000-0.055) White Blood Count 9.6 x10^3/uL (4.0-11.0) Red Blood Count 3.87 x10^6/uL (4.30-5.70) Hemoglobin 11.7 g/dL (13.0-17.5) Hematocrit 33.1 % (39.0-53.0) Mean Corpuscular Volume 86 fL (79-100) Mean Corpuscular Hemoglobin 30 pg (25-35) Mean Corpuscular Hemoglobin Concent 35 g/dL (31-37) Red Cell Distribution Width 13.9 % (11.5-14.5) Platelet Count 312 x10^3/uL (140-400) Neutrophils (%) (Auto) 75 % (31-73) Lymphocytes (%) (Auto) 6 % (24-48) Monocytes (%) (Auto) 15 % (0-9) Eosinophils (%) (Auto) 3 % (0-3) Basophils (%) (Auto) 0 % (0-3) Neutrophils # (Auto) 7.2 x10^3/uL (1.8-7.7) Lymphocytes # (Auto) 0.6 x10^3/uL (1.0-4.8) Monocytes # (Auto) 1.5 x10^3/uL (0.0-1.1) Eosinophils # (Auto) 0.3 x10^3/uL (0.0-0.7) Basophils # (Auto) 0.0 x10^3/uL (0.0-0.2) Sodium Level 141 mmol/L (136-145) Potassium Level 2.7 mmol/L (3.5-5.1) 2.8 mmol/L (3.5-5.1) Chloride Level 97 mmol/L (98-107) Carbon Dioxide Level 38 mmol/L (21-32) Anion Gap 6 (6-14) Blood Urea Nitrogen 87 mg/dL (8-26) Creatinine 1.8 mg/dL (0.7-1.3) Estimated GFR (Cockcroft-Gault) 37.6 Glucose Level 117 mg/dL (70-99) Calcium Level 8.9 mg/dL (8.5-10.1) Magnesium Level 2.1 mg/dL (1.8-2.4) Triglycerides Level 65 mg/dL (0-150) Cholesterol Level 102 mg/dL (0-200) LDL Cholesterol, Calculated 55 mg/dL (0-100) VLDL Cholesterol, Calculated 13 mg/dL (0-40) Non-HDL Cholesterol Calculated 68 mg/dL (0-129) HDL Cholesterol 34 mg/dL (40-60) Cholesterol/HDL Ratio 3.0 Thyroid Stimulating Hormone (TSH) 2.158 uIU/mL (0.358-3.74) Glucose (Fingerstick) 147 mg/dL (70-99) Test 12/17/20 11:19 Glucose (Fingerstick) 162 mg/dL (70-99) Laboratory Tests Test 12/16/20 14:30 12/16/20 18:22 12/16/20 19:50 12/16/20 20:45 White Blood Count 8.2 x10^3/uL (4.0-11.0) Red Blood Count 4.13 x10^6/uL (4.30-5.70) Hemoglobin 12.4 g/dL (13.0-17.5) Hematocrit 35.8 % (39.0-53.0) Mean Corpuscular Volume 87 fL (79-100) Mean Corpuscular Hemoglobin 30 pg (25-35) Mean Corpuscular Hemoglobin Concent 35 g/dL (31-37) Red Cell Distribution Width 13.8 % (11.5-14.5) Platelet Count 314 x10^3/uL (140-400) Neutrophils (%) (Auto) 77 % (31-73) Lymphocytes (%) (Auto) 6 % (24-48) Monocytes (%) (Auto) 13 % (0-9) Eosinophils (%) (Auto) 4 % (0-3) Basophils (%) (Auto) 0 % (0-3) Neutrophils # (Auto) 6.3 x10^3/uL (1.8-7.7) Lymphocytes # (Auto) 0.5 x10^3/uL (1.0-4.8) Monocytes # (Auto) 1.1 x10^3/uL (0.0-1.1) Eosinophils # (Auto) 0.3 x10^3/uL (0.0-0.7) Basophils # (Auto) 0.0 x10^3/uL (0.0-0.2) Sodium Level 138 mmol/L (136-145) Potassium Level 2.2 mmol/L (3.5-5.1) Chloride Level 92 mmol/L (98-107) Carbon Dioxide Level 39 mmol/L (21-32) Anion Gap 7 (6-14) Blood Urea Nitrogen 89 mg/dL (8-26) Creatinine 1.6 mg/dL (0.7-1.3) Estimated GFR (Cockcroft-Gault) 43.1 Glucose Level 280 mg/dL (70-99) Lactic Acid Level 1.8 mmol/L (0.4-2.0) Calcium Level 9.3 mg/dL (8.5-10.1) Magnesium Level 2.0 mg/dL (1.8-2.4) Total Bilirubin 0.8 mg/dL (0.2-1.0) Direct Bilirubin 0.3 mg/dL (0.0-0.2) Aspartate Amino Transf (AST/SGOT) 21 U/L (15-37) Alanine Aminotransferase (ALT/SGPT) 17 U/L (16-63) Alkaline Phosphatase 101 U/L (46-116) Troponin I Quantitative 0.071 ng/mL (0.000-0.055) 0.079 ng/mL (0.000-0.055) JS-Rwj-S-Type Natriuretic Peptide 4528 pg/mL (0-124) Total Protein 7.7 g/dL (6.4-8.2) Albumin 3.1 g/dL (3.4-5.0) Lipase 222 U/L (73-393) Procalcitonin 0.12 ng/mL (0.00-0.10) Glucose (Fingerstick) 172 mg/dL (70-99) 248 mg/dL (70-99) Test 12/17/20 00:30 12/17/20 00:45 12/17/20 08:14 12/17/20 10:30 Troponin I Quantitative 0.079 ng/mL (0.000-0.055) White Blood Count 9.6 x10^3/uL (4.0-11.0) Red Blood Count 3.87 x10^6/uL (4.30-5.70) Hemoglobin 11.7 g/dL (13.0-17.5) Hematocrit 33.1 % (39.0-53.0) Mean Corpuscular Volume 86 fL (79-100) Mean Corpuscular Hemoglobin 30 pg (25-35) Mean Corpuscular Hemoglobin Concent 35 g/dL (31-37) Red Cell Distribution Width 13.9 % (11.5-14.5) Platelet Count 312 x10^3/uL (140-400) Neutrophils (%) (Auto) 75 % (31-73) Lymphocytes (%) (Auto) 6 % (24-48) Monocytes (%) (Auto) 15 % (0-9) Eosinophils (%) (Auto) 3 % (0-3) Basophils (%) (Auto) 0 % (0-3) Neutrophils # (Auto) 7.2 x10^3/uL (1.8-7.7) Lymphocytes # (Auto) 0.6 x10^3/uL (1.0-4.8) Monocytes # (Auto) 1.5 x10^3/uL (0.0-1.1) Eosinophils # (Auto) 0.3 x10^3/uL (0.0-0.7) Basophils # (Auto) 0.0 x10^3/uL (0.0-0.2) Sodium Level 141 mmol/L (136-145) Potassium Level 2.7 mmol/L (3.5-5.1) 2.8 mmol/L (3.5-5.1) Chloride Level 97 mmol/L (98-107) Carbon Dioxide Level 38 mmol/L (21-32) Anion Gap 6 (6-14) Blood Urea Nitrogen 87 mg/dL (8-26) Creatinine 1.8 mg/dL (0.7-1.3) Estimated GFR (Cockcroft-Gault) 37.6 Glucose Level 117 mg/dL (70-99) Calcium Level 8.9 mg/dL (8.5-10.1) Magnesium Level 2.1 mg/dL (1.8-2.4) Triglycerides Level 65 mg/dL (0-150) Cholesterol Level 102 mg/dL (0-200) LDL Cholesterol, Calculated 55 mg/dL (0-100) VLDL Cholesterol, Calculated 13 mg/dL (0-40) Non-HDL Cholesterol Calculated 68 mg/dL (0-129) HDL Cholesterol 34 mg/dL (40-60) Cholesterol/HDL Ratio 3.0 Thyroid Stimulating Hormone (TSH) 2.158 uIU/mL (0.358-3.74) Glucose (Fingerstick) 147 mg/dL (70-99) Test 12/17/20 11:19 Glucose (Fingerstick) 162 mg/dL (70-99) Review All relevant outside records, renal labs, imaging studies, telemetry/EKG's were reviewed. Images Images EXAM: AP View of the chest DATE: 12/16/2020 2:04 PM INDICATION: Reason: CHEST TUBE NOT DRAINING PER PATIENT / Spl. Instructions: / History: COMPARISON: No Prior FINDINGS: Heart is moderately enlarged. Aorta is tortuous. Atherosclerotic calcifications. Bilateral pleural effusions. Bilateral parenchymal airspace opacities likely pulmonary edema or consolidative process such as pneumonia. No pneumothorax. IMPRESSION: Cardiomegaly with bilateral pleural effusions and parenchymal opacities may represent pulmonary edema or consolidative process such as pneumonia REASON: acute kidney injury. rule out hydronephrosis PROCEDURE: RENAL COMPLETE BILATERAL EXAM: RENAL ULTRASOUND CLINICAL HISTORY: Reason: acute kidney injury. rule out hydronephrosis / Spl. Instructions: / History: COMPARISON: None available. TECHNIQUE: Ultrasound examination of the bilateral kidneys and urinary bladder was performed. FINDINGS: The right kidney measures 12.0 x 4.9 x 7.3 cm. The left kidney measures 9.4 x 4.7 x 5.2 cm. Punctate bilateral intrarenal calculi identified. No obvious hydronephrosis.Cystic structure identified in the inferior aspect of the left kidney measuring 3.5 cm likely cyst. Campbell catheter balloon identified in the urinary bladder. IMPRESSION: 1. Bilateral intrarenal collecting system calculi. 2. 3.4 cm cyst left kidney. JUNITO RODRIGUEZ MD Dec 17, 2020 11:56
[2020-12-17] MEDS ORDERED: LIDOCAINE 1%/EPI 1:100,000 20 ML VIAL. SQ ONE (12:15)
--- NOTE | 2020-12-17 13:05 | PDOC2 ---
RADHA GAFFNEY [employer] 12/17/20 1305: CARDIAC CONSULT DATE OF CONSULT Date of Consult DATE: 12/17/20 TIME: 12:57 REASON FOR CONSULT Reason for Consult: CHF REFERRING PHYSICIAN Referring Physician: Dr. Irizarry SOURCE Source: Chart review, Patient HISTORY OF PRESENT ILLNESS HISTORY OF PRESENT ILLNESS This is a 70 yo male who presented from nursing facility secondary to concerns of chest drain not functioning properly. Reports it was not draining. Patient has a history of recurrent transudative pleural effusions and has had PleurX tube in the right chest for approximately 6 months. Has had slight increase in shortness of breath. He denies any dizziness, diaphoresis, palpitations, or nausea/vomiting. PAST MEDICAL HISTORY Past Medical History Cardiovascular: CHF, HTN, Hyperlipidemia, Other (Paroxysmal atrial flutter) Pulmonary: No pertinent hx CENTRAL NERVOUS SYSTEM: Other GI: No pertinent hx Heme/Onc: No pertinent hx Hepatobiliary: No pertinent hx Psych: No pertinent hx Musculoskeletal: Osteoarthritis, Other Rheumatologic: No pertinent hx Infectious disease: No pertinent hx Renal/: No pertinent hx Endocrine: Diabetes PAST SURGICAL HISTORY Past Surgical History Loop recorder implantation FAMILY HISTORY Family History: Diabetes SOCIAL HISTORY Social History ALCOHOL: other Drugs: None Lives: assisted living CURRENT MEDICATIONS CURRENT MEDICATIONS Current Medications Medications (Trade) Dose Ordered Sig/Jeremías Route PRN Reason Start Time Stop Time Status Last Admin Dose Admin Potassium Chloride/Water 100 ml @ 50 mls/hr 1X ONCE IV 12/16/20 16:15 12/16/20 18:14 DC 12/16/20 16:21 Levofloxacin/ Dextrose 150 ml @ 100 mls/hr Q48H IV 12/16/20 17:00 12/16/20 16:53 DC 12/16/20 16:33 Vancomycin HCl 250 ml @ 250 mls/hr 1X ONCE IV 12/16/20 17:00 12/16/20 16:53 DC 12/16/20 16:37 Heparin Sodium (Porcine) (Heparin Sodium) 5,000 unit BID SQ 12/16/20 21:00 12/16/20 21:47 Potassium Chloride (Klor-Con) 40 meq 1X ONCE PO 12/16/20 16:45 12/16/20 16:55 DC 12/16/20 17:41 Metoprolol Tartrate (Lopressor) 12.5 mg BID PO 12/16/20 21:00 12/16/20 21:44 Potassium Chloride (Klor-Con) 20 meq 1X ONCE PO 12/16/20 21:00 12/16/20 21:01 DC 12/16/20 21:44 Potassium Chloride/Water 100 ml @ 100 mls/hr Q1H IV 12/17/20 04:00 12/17/20 07:59 DC 12/17/20 06:30 Lidocaine/ Epinephrine (LIDOCAINE 1%-EPI 1:100,000 Multi-Dose) 20 ml 1X ONCE SQ 12/17/20 12:15 12/17/20 12:16 DC 12/17/20 12:10 ALLERGIES ALLERGIES: Coded Allergies: amoxicillin (Verified Allergy, Intermediate, Diarrhea, 11/07/17) clavulanic acid (Verified Allergy, Intermediate, Diarrhea, 11/07/17) clonidine (Verified Allergy, Intermediate, 11/07/17) hydrochlorothiazide (Verified Allergy, Intermediate, 04/27/20) irbesartan (Verified Allergy, Intermediate, 04/27/20) metformin (Verified Allergy, Intermediate, 04/27/20) pioglitazone (Verified Allergy, Intermediate, 11/07/17) ROS Review of System 14 point ROS conducted with pertinent positives noted above in HPI PHYSICAL EXAM General: Alert, Oriented X3, Cooperative, No acute distress HEENT: Atraumatic Lungs: Other (diminihed bases) Heart: Regular rate (SR with LBBB) Abdomen: Soft Extremities: No edema Skin: No significant lesion Neuro: Normal speech, Sensation intact Psych/Mental Status: Mental status NL, Mood NL MUSCULOSKELETAL: Osteoarthritic changes both hands VITALS/I&O VITALS/I&O: Vital Signs Date Time Temp Pulse Resp B/P (MAP) Pulse Ox O2 Delivery O2 Flow Rate FiO2 12/17/20 11:04 97.7 71 14 104/63 (77) 98 Nasal Cannula 97.7 12/17/20 03:13 2.0 I & O 12/16/20 12/16/20 12/17/20 15:00 23:00 07:00 Intake Total 300 ml Output Total 800 ml 975 ml Balance -800 ml -675 ml LABS Lab: Laboratory Tests Test 12/16/20 14:30 12/16/20 18:22 12/16/20 19:50 12/16/20 20:45 White Blood Count 8.2 x10^3/uL (4.0-11.0) Red Blood Count 4.13 x10^6/uL (4.30-5.70) L Hemoglobin 12.4 g/dL (13.0-17.5) L Hematocrit 35.8 % (39.0-53.0) L Mean Corpuscular Volume 87 fL (79-100) Mean Corpuscular Hemoglobin 30 pg (25-35) Mean Corpuscular Hemoglobin Concent 35 g/dL (31-37) Red Cell Distribution Width 13.8 % (11.5-14.5) Platelet Count 314 x10^3/uL (140-400) Neutrophils (%) (Auto) 77 % (31-73) H Lymphocytes (%) (Auto) 6 % (24-48) L Monocytes (%) (Auto) 13 % (0-9) H Eosinophils (%) (Auto) 4 % (0-3) H Basophils (%) (Auto) 0 % (0-3) Neutrophils # (Auto) 6.3 x10^3/uL (1.8-7.7) Lymphocytes # (Auto) 0.5 x10^3/uL (1.0-4.8) L Monocytes # (Auto) 1.1 x10^3/uL (0.0-1.1) Eosinophils # (Auto) 0.3 x10^3/uL (0.0-0.7) Basophils # (Auto) 0.0 x10^3/uL (0.0-0.2) Sodium Level 138 mmol/L (136-145) Potassium Level 2.2 mmol/L (3.5-5.1) *L Chloride Level 92 mmol/L (98-107) L Carbon Dioxide Level 39 mmol/L (21-32) H Anion Gap 7 (6-14) Blood Urea Nitrogen 89 mg/dL (8-26) H Creatinine 1.6 mg/dL (0.7-1.3) H Estimated GFR (Cockcroft-Gault) 43.1 Glucose Level 280 mg/dL (70-99) H Lactic Acid Level 1.8 mmol/L (0.4-2.0) Calcium Level 9.3 mg/dL (8.5-10.1) Magnesium Level 2.0 mg/dL (1.8-2.4) Total Bilirubin 0.8 mg/dL (0.2-1.0) Direct Bilirubin 0.3 mg/dL (0.0-0.2) H Aspartate Amino Transferase (AST) 21 U/L (15-37) Alanine Aminotransferase (ALT) 17 U/L (16-63) Alkaline Phosphatase 101 U/L (46-116) Troponin I Quantitative 0.071 ng/mL (0.000-0.055) 0.079 ng/mL (0.000-0.055) ZT-Rlb-V-Type Natriuretic Peptide 4528 pg/mL (0-124) H Total Protein 7.7 g/dL (6.4-8.2) Albumin 3.1 g/dL (3.4-5.0) L Lipase 222 U/L (73-393) Procalcitonin 0.12 ng/mL (0.00-0.10) H Glucose (Fingerstick) 172 mg/dL (70-99) H 248 mg/dL (70-99) H Test 12/17/20 00:30 12/17/20 00:45 12/17/20 08:14 12/17/20 10:30 Troponin I Quantitative 0.079 ng/mL (0.000-0.055) White Blood Count 9.6 x10^3/uL (4.0-11.0) Red Blood Count 3.87 x10^6/uL (4.30-5.70) L Hemoglobin 11.7 g/dL (13.0-17.5) L Hematocrit 33.1 % (39.0-53.0) L Mean Corpuscular Volume 86 fL (79-100) Mean Corpuscular Hemoglobin 30 pg (25-35) Mean Corpuscular Hemoglobin Concent 35 g/dL (31-37) Red Cell Distribution Width 13.9 % (11.5-14.5) Platelet Count 312 x10^3/uL (140-400) Neutrophils (%) (Auto) 75 % (31-73) H Lymphocytes (%) (Auto) 6 % (24-48) L Monocytes (%) (Auto) 15 % (0-9) H Eosinophils (%) (Auto) 3 % (0-3) Basophils (%) (Auto) 0 % (0-3) Neutrophils # (Auto) 7.2 x10^3/uL (1.8-7.7) Lymphocytes # (Auto) 0.6 x10^3/uL (1.0-4.8) L Monocytes # (Auto) 1.5 x10^3/uL (0.0-1.1) H Eosinophils # (Auto) 0.3 x10^3/uL (0.0-0.7) Basophils # (Auto) 0.0 x10^3/uL (0.0-0.2) Sodium Level 141 mmol/L (136-145) Potassium Level 2.7 mmol/L (3.5-5.1) *L 2.8 mmol/L (3.5-5.1) *L Chloride Level 97 mmol/L (98-107) L Carbon Dioxide Level 38 mmol/L (21-32) H Anion Gap 6 (6-14) Blood Urea Nitrogen 87 mg/dL (8-26) H Creatinine 1.8 mg/dL (0.7-1.3) H Estimated GFR (Cockcroft-Gault) 37.6 Glucose Level 117 mg/dL (70-99) H Calcium Level 8.9 mg/dL (8.5-10.1) Magnesium Level 2.1 mg/dL (1.8-2.4) Triglycerides Level 65 mg/dL (0-150) Cholesterol Level 102 mg/dL (0-200) LDL Cholesterol, Calculated 55 mg/dL (0-100) VLDL Cholesterol, Calculated 13 mg/dL (0-40) Non-HDL Cholesterol Calculated 68 mg/dL (0-129) HDL Cholesterol 34 mg/dL (40-60) L Cholesterol/HDL Ratio 3.0 Thyroid Stimulating Hormone (TSH) 2.158 uIU/mL (0.358-3.74) Glucose (Fingerstick) 147 mg/dL (70-99) H Test 12/17/20 11:19 Glucose (Fingerstick) 162 mg/dL (70-99) H Laboratory Tests 12/16/20 14:30 12/17/20 00:45 Laboratory Tests 12/16/20 14:30 12/17/20 00:45 12/17/20 10:30 ASSESSMENT/PLAN ASSESSMENT/PLAN 1. Acute on chronic respiratory failure with history of recurrent pleural effusion and PleurX catheter placement, which was no longer draining. s/p removal 2. Acute on chronic diastolic CHF; Echo 04/20 with preserved LV systolic function. appears compensated 3. Severe pulmonary hypertension 4. Mild troponin elevation; highest 0.079. Most probably type II, demand is chemia. CP free. Recent cath with nonobstructive CAD, 40% stenosis involving the LAD. 5. Paroxysmal atrial fibrillation/flutter: maintaining SR. Not on OAC due to significant, recurrent nosebleeds 6. CAREY on CKD 7. Severe hypokalemia; replacement ordered 8. Hypertension: low end 9. Diabetes, II; as per IM 10. ILR in situ 11. Suspect moderate : per TTE Recommendations Replace electrolytes as warranted Lasix held; monitor fluid status closely Secondary prevention Supportive care from a CV standpoint JASON DENIS MD 12/17/202025: CARDIAC CONSULT ASSESSMENT/PLAN ASSESSMENT/PLAN The patient was seen and interviewed as well as examined at the bedside. The chart was reviewed. The case was discussed. Agree with the plan of care. RADHA GAFFNEY APRN Dec 17, 2020 13:05 JASON DENIS MD Dec 17, 2020 20:26
--- NOTE | 2020-12-17 13:12 | NUR ---
SS following for discharge planning. SS reviewed pt chart and discussed with pt RN. Pt is from [facility] in [place], [address] [place] [address], ; fax [phone]. Pt had [facility], ; fax [phone]. Pt is currently requiring oxygen at two liters nasal canula. Pt has home oxygen. PleurX drain removed. Pt getting IV potassium. PT/OT ordered. SS will continue to follow for discharge planning.
[2020-12-17] MEDS: MAGNESIUM OXIDE 400 MG TABLET PO SCH (13:56)
[2020-12-17] MEDS: GLIMEPIRIDE 2 MG TABLET. PO SCH (13:57)
[2020-12-17] MEDS: METOPROLOL TART IMMED RELEASE 25 MG TABLET. PO SCH ×2 (13:59→22:05)
[2020-12-17] MEDS: HEPARIN for SUB-Q USE 5,000 UNIT/ML VIAL. SQ SCH ×2 (14:07→21:00)
--- NOTE | 2020-12-17 14:58 | CONS ---
DATE OF CONSULTATION: 12/17/2020 ATTENDING PHYSICIAN: Meek Reynoso MD REASON FOR CONSULTATION: The patient is seen in Pulmonary consultation at the request of Dr. Reynoso for PleurX catheter management. HISTORY OF PRESENT ILLNESS: The patient is a 70-year-old with a history of heart failure, has had a PleurX catheter in place for well over 6 months. Over the last several weeks, I had gotten some feedback from a home health nurse indicating that the tube was not draining. Eventually, the patient presented to the emergency room for evaluation and management. He underwent a chest x-ray. I personally reviewed the x-ray. There is not much pleural fluid left on the side of his PleurX catheter. There are small bilateral effusions. There is no pneumothorax. The patient denies fever, chills or night sweats. He denies any increasing shortness of breath. He has been in assisted living situation for the last 6 months. He is relatively weak. In addition to the above, he presented and had a low potassium. His white count was normal. His potassium level was 2.7. PAST MEDICAL HISTORY: Chronic heart failure, respiratory failure secondary to the heart failure, status post PleurX catheter on the right approximately 6 months ago. He has a history of type 2 diabetes, neuropathy, chronic UTI, pulmonary hypertension, diabetic nephropathy. PAST SURGICAL HISTORY: He has had previous left adrenalectomy for benign adrenal mass. SOCIAL HISTORY: There is a history of alcoholism in the past. He is currently living in an assisted living situation. He has worked in [employer], never smoked. FAMILY HISTORY: Noncontributory. REVIEW OF SYSTEMS: CONSTITUTIONAL: No fever or chills. EYES: No change in visual acuity. HENT: No nasal congestion or sore throat. PULMONARY: As indicated above. CARDIOVASCULAR: No chest pain or pressure. GASTROINTESTINAL: No nausea, vomiting, or diarrhea. GENITOURINARY: No dysuria or frequency. MUSCULOSKELETAL: No localized muscle aches or joint pain. SKIN: No new skin rashes. NEUROLOGIC: No headaches, diplopia or blurred vision. MEDICATIONS: MAR was reviewed. The patient was given some empiric antibiotics that have been discontinued. PHYSICAL EXAMINATION: VITAL SIGNS: Stable. O2 saturation on room air was 97%. HEENT: Eyes: The sclerae were nonicteric. NECK: Jugular venous distention was not elevated. No lymphadenopathy. CHEST: Full expansion. LUNGS: Diminished breath sounds in the bases with crackles. CARDIOVASCULAR: Regular rate and rhythm with S1, S2, no S3. Grade 2/6 systolic murmur. ABDOMEN: Soft. EXTREMITIES: No clubbing, cyanosis. Minimal edema. NEUROLOGIC: The patient was awake, alert, following commands. A detailed neuro exam was not performed. LABORATORY DATA: Labs were reviewed. Serology for SARS-CoV-2 was negative. Electrolytes were noted. BUN was 87. Creatinine was 1.8. IMPRESSION: 1. Status post right-sided PleurX catheter for recurrent transudative effusion. 2. Acute on chronic diastolic heart failure. 3. Acute on chronic kidney disease. 4. Severe hypokalemia. 5. Abnormal x-ray. 6. Paroxysmal atrial fibrillation. 7. Type 2 diabetes complicated with neuropathy. 8. History of moderate aortic stenosis. DISCUSSION: Catheter has been in for well over 6 months, I have reviewed the x-ray. There is not much pleural effusion. The catheter is functional, I think that what has occurred is that over time the catheter itself has caused a pleurodesis. PleurX catheter is no longer needed. We will discontinue. Discussed the case with interventional radiologist. PLAN: 1. Discontinue PleurX catheter. 2. Continue diuresis. 3. Monitor BUN and creatinine, consult nephrology. 4. No need for antibiotics. 5. Replace potassium. 6. Aggressive PT. 7. Discontinue oxygen and maintain sats above 90%. JOSE ALFREDO DR: Marian TID: [id number]
[2020-12-17 15:20] VITALS: BP 96/66
--- NOTE | 2020-12-17 16:05 | RAD ---
Removal of right-sided tunneled thoracostomy tube 12/17/2020 INDICATION: Apparent pleurodesis Consent: The procedure was explained in its entirety to the patient or the patients designated repres entative by a member of the treatment team, including a discussion of the risks, benefits and commonl y accepted alternatives to the procedure, as well as the expected consequences of no therapy whatsoev er. Discussion of the risks included, but was not limited to, those that are most frequent and thos e that are rare but possibly severe or life-threatening, as well as the possibility of unforeseen com plications. The right chest was prepped and draped using sterile barrier technique. This concludes pre-existing t unneled thoracostomy tube. 1% lidocaine was administered for local anesthesia. Using minimal dissecti on of the subcutaneous cuff was freed. The catheter was removed. Sterile dressings including a Vaseli ne gauze were placed. No immediate complications were identified. IMPRESSION: Removal of right tunneled thoracostomy tube Electronically signed by: Garrison Faust MD (12/17/2020 4:02 PM) [id number]
--- NOTE | 2020-12-17 17:45 | CARD ---
MR#: [id number] Date of Study: 12/17/2020 Ordering Physician: DALIA FRANKLIN, Referring Physician: DALIA FRANKLIN, Tech: Deena Alex [facility] APPROVED REPORT EXAM: Two-dimensional and M-mode echocardiogram with Doppler and color Doppler. Other Information Quality : AverageHR: 76bpm Rhythm : NSR INDICATION Aortic Valve Disease Congestive Heart Failure RISK FACTORS Hypertension Hyperlipidemia 2D DIMENSIONS RVDd4.3 (2.9-3.5cm)Left Atrium(2D)5.6 (1.6-4.0cm) IVSd1.6 (0.7-1.1cm)Aortic Root(2D)4.2 (2.0-3.7cm) LVDd5.8 (3.9-5.9cm)LVOT Diameter2.0 (1.8-2.4cm) PWd1.2 (0.7-1.1cm)LVDs3.4 (2.5-4.0cm) FS (%) 42.1 %SV122.6 ml Aortic Valve AoV Peak Malcom.324.1cm/sAoV VTI62.4cm AO Peak GR.42.0mmHgLVOT Peak Malcom.116.9cm/s AO Mean GR.19mmHgAVA (VMAX)1.11cm2 Mitral Valve MV E Uhmoctys596.7cm/sMV DECEL [id number] MV A Mounauzy72.5cm/sE/A Ratio2.1 Pulmonary Valve PV Peak Dfdaokve418.3cm/s Tricuspid Valve TR P. [id number]/sTR Peak Gr.42mmHg LEFT VENTRICLE The Left Ventricle is mildly dilated. Mild asymetric septal hypertrophy. The left ventricular systoli c function is normal. The ejection fraction of 60 to 65%. There is normal LV segmental wall motion. T he left ventricular diastolic function and filling is normal for age. RIGHT VENTRICLE The right ventricle is normal size. There is normal right ventricular wall thickness. The right ventr icular systolic function is normal. ATRIA The left atrium is moderately dilated. The right atrium is mildly dilated. The interatrial septum is intact with no evidence for an atrial septal defect or patent foramen ovale as noted on 2-D or Dopple r imaging. AORTIC VALVE The aortic valve is moderately thickened but opens well. Doppler and Color Flow revealed trace aortic regurgitation. There is moderate valvular aortic stenosis. Calculated mean pressure gradient of 19 m mHg, peak pressure gradient of 42 mmHg, calculated LONNIE of 1.4 cm. MITRAL VALVE The mitral valve is calcified but opens well. Mitral annular calcification is mild. There is no evid ence of mitral valve prolapse. There is no mitral valve stenosis. Doppler and Color-flow revealed tra ce mitral regurgitation. TRICUSPID VALVE The tricuspid valve is normal in structure and function. Doppler and Color Flow revealed mild tricusp id regurgitation. Estimated PAP 46 mmHg. There is no tricuspid valve stenosis. PULMONIC VALVE The pulmonary valve is normal in structure and function. Doppler and Color Flow revealed mild pulmoni c valvular regurgitation. GREAT VESSELS The aortic root is mildly to moderately enlarged. The ascending aorta is moderately dilated. The IVC is normal in size and collapses >50% with inspiration. PERICARDIAL EFFUSION There is no evidence of significant pericardial effusion. Critical Notification Critical Value: No <Conclusion> The Left Ventricle is mildly dilated. The left ventricular systolic function is normal. The ejection fraction of 60 to 65%. Doppler and Color Flow revealed trace aortic regurgitation. There is moderate valvular aortic stenosis. Calculated aortic valve mean pressure gradient of 19 mmHg, peak pressure gradient of 42 mmHg, calcula frank LONNIE of 1.4 cm. Doppler and Color-flow revealed trace mitral regurgitation. Doppler and Color Flow revealed mild tricuspid regurgitation. Estimated PAP 46 mmHg. The aortic root is mildly to moderately enlarged. Signed by : Nando Perales MD Electronically Approved : 12/17/2020 17:45:32
[2020-12-17 19:35] VITALS: BP 99/64
[2020-12-17 23:35] VITALS: BP 106/66
[2020-12-18 04:10] LABS: HEMOGLOBIN A1C 7.8 % (4.8-5.6)
[2020-12-18 04:35] VITALS: BP 140/77
[2020-12-18 07:00] VITALS: BP 112/72
[2020-12-18 07:19] LABS: BASO # 0.1 x10^3/uL (0.0-0.2); BASO % 1 % (0-3); EOS # 0.3 x10^3/uL (0.0-0.7); EOS % 3 % (0-3); HEMATOCRIT 34.8 % (39.0-53.0); HEMOGLOBIN 11.9 g/dL (13.0-17.5); LYMPH # 0.5 x10^3/uL (1.0-4.8); LYMPH % 6 % (24-48); MEAN CORPUSCULAR HEMOGLOBIN 30 pg (25-35); MEAN CORPUSCULAR HGB CONC 34 g/dL (31-37); MEAN CORPUSCULAR VOLUME 87 fL (79-100); MONO # 1.2 x10^3/uL (0.0-1.1); MONO % 14 % (0-9); NEUT # 6.7 x10^3/uL (1.8-7.7); NEUT % 76 % (31-73); PLATELET COUNT 298 x10^3/uL (140-400); RED CELL DISTRIBUTION WIDTH 13.8 % (11.5-14.5); WHITE BLOOD COUNT 8.8 x10^3/uL (4.0-11.0)
[2020-12-18 07:49] LABS: CALCIUM 9.4 mg/dL (8.5-10.1); CREATININE 1.6 mg/dL (0.7-1.3); GFR 43.1
[2020-12-18 07:53] LABS: POTASSIUM 2.5 mmol/L (3.5-5.1)
[2020-12-18] MEDS: INSULIN LISPRO 300 UNITS/3 ML VIAL. SQ SCH ×3 (08:00→17:00)
[2020-12-18] MEDS ORDERED: POTASSIUM CHLORIDE 20 MEQ TABLET.ER. PO ONE ×2 (08:15→12:00)
[2020-12-18] MEDS: METOPROLOL TART IMMED RELEASE 25 MG TABLET. PO SCH ×2 (08:21→20:53)
[2020-12-18] MEDS: MAGNESIUM OXIDE 400 MG TABLET PO SCH (08:21)
[2020-12-18] MEDS: GLIMEPIRIDE 2 MG TABLET. PO SCH (08:25)
[2020-12-18] MEDS: FLUTICASONE 50MCG/NASAL SPRAY 16GM BOTTLE. NS SCH (08:27)
[2020-12-18] MEDS: HEPARIN for SUB-Q USE 5,000 UNIT/ML VIAL. SQ SCH ×2 (08:28→20:49)
[2020-12-18] MEDS: SODIUM CHLORIDE 0.65% NASAL SPRAY 45ML BOTTLE. NS SCH ×3 (08:28→20:49)
[2020-12-18] MEDS: FAMOTIDINE 20 MG TABLET. PO SCH (08:28)
--- NOTE | 2020-12-18 10:05 | PDOC ---
PULMONARY PROGRESS NOTES DATE: 12/18/20 TIME: 10:03 Subjective pleurex out on 02 is on home 02 2.5 lpm sob better has occ cough Vitals Vital Signs Date Time Temp Pulse Resp B/P (MAP) Pulse Ox O2 Delivery O2 Flow Rate FiO2 12/18/20 08:21 72 112/72 12/18/20 08:00 Nasal Cannula 2.0 12/18/20 07:00 97.6 24 99 97.6 ROS: No Nausea, No Chest Pain General: Alert HEENT: Other (nc at per ) Lungs: Clear Cardiovascular: S1, S2 Abdomen: Soft, Non-tender Extremities: Other Skin: Warm Labs Laboratory Tests Test 12/16/20 14:30 12/16/20 18:22 12/16/20 19:50 12/16/20 20:45 White Blood Count 8.2 x10^3/uL (4.0-11.0) Red Blood Count 4.13 x10^6/uL (4.30-5.70) Hemoglobin 12.4 g/dL (13.0-17.5) Hematocrit 35.8 % (39.0-53.0) Mean Corpuscular Volume 87 fL (79-100) Mean Corpuscular Hemoglobin 30 pg (25-35) Mean Corpuscular Hemoglobin Concent 35 g/dL (31-37) Red Cell Distribution Width 13.8 % (11.5-14.5) Platelet Count 314 x10^3/uL (140-400) Neutrophils (%) (Auto) 77 % (31-73) Lymphocytes (%) (Auto) 6 % (24-48) Monocytes (%) (Auto) 13 % (0-9) Eosinophils (%) (Auto) 4 % (0-3) Basophils (%) (Auto) 0 % (0-3) Neutrophils # (Auto) 6.3 x10^3/uL (1.8-7.7) Lymphocytes # (Auto) 0.5 x10^3/uL (1.0-4.8) Monocytes # (Auto) 1.1 x10^3/uL (0.0-1.1) Eosinophils # (Auto) 0.3 x10^3/uL (0.0-0.7) Basophils # (Auto) 0.0 x10^3/uL (0.0-0.2) Sodium Level 138 mmol/L (136-145) Potassium Level 2.2 mmol/L (3.5-5.1) Chloride Level 92 mmol/L (98-107) Carbon Dioxide Level 39 mmol/L (21-32) Anion Gap 7 (6-14) Blood Urea Nitrogen 89 mg/dL (8-26) Creatinine 1.6 mg/dL (0.7-1.3) Estimated GFR (Cockcroft-Gault) 43.1 Glucose Level 280 mg/dL (70-99) Lactic Acid Level 1.8 mmol/L (0.4-2.0) Calcium Level 9.3 mg/dL (8.5-10.1) Magnesium Level 2.0 mg/dL (1.8-2.4) Total Bilirubin 0.8 mg/dL (0.2-1.0) Direct Bilirubin 0.3 mg/dL (0.0-0.2) Aspartate Amino Transf (AST/SGOT) 21 U/L (15-37) Alanine Aminotransferase (ALT/SGPT) 17 U/L (16-63) Alkaline Phosphatase 101 U/L (46-116) Troponin I Quantitative 0.071 ng/mL (0.000-0.055) 0.079 ng/mL (0.000-0.055) MR-Mdd-M-Type Natriuretic Peptide 4528 pg/mL (0-124) Total Protein 7.7 g/dL (6.4-8.2) Albumin 3.1 g/dL (3.4-5.0) Lipase 222 U/L (73-393) Procalcitonin 0.12 ng/mL (0.00-0.10) Glucose (Fingerstick) 172 mg/dL (70-99) 248 mg/dL (70-99) Test 12/17/20 00:30 12/17/20 00:45 12/17/20 08:14 12/17/20 10:30 Troponin I Quantitative 0.079 ng/mL (0.000-0.055) White Blood Count 9.6 x10^3/uL (4.0-11.0) Red Blood Count 3.87 x10^6/uL (4.30-5.70) Hemoglobin 11.7 g/dL (13.0-17.5) Hematocrit 33.1 % (39.0-53.0) Mean Corpuscular Volume 86 fL (79-100) Mean Corpuscular Hemoglobin 30 pg (25-35) Mean Corpuscular Hemoglobin Concent 35 g/dL (31-37) Red Cell Distribution Width 13.9 % (11.5-14.5) Platelet Count 312 x10^3/uL (140-400) Neutrophils (%) (Auto) 75 % (31-73) Lymphocytes (%) (Auto) 6 % (24-48) Monocytes (%) (Auto) 15 % (0-9) Eosinophils (%) (Auto) 3 % (0-3) Basophils (%) (Auto) 0 % (0-3) Neutrophils # (Auto) 7.2 x10^3/uL (1.8-7.7) Lymphocytes # (Auto) 0.6 x10^3/uL (1.0-4.8) Monocytes # (Auto) 1.5 x10^3/uL (0.0-1.1) Eosinophils # (Auto) 0.3 x10^3/uL (0.0-0.7) Basophils # (Auto) 0.0 x10^3/uL (0.0-0.2) Sodium Level 141 mmol/L (136-145) Potassium Level 2.7 mmol/L (3.5-5.1) 2.8 mmol/L (3.5-5.1) Chloride Level 97 mmol/L (98-107) Carbon Dioxide Level 38 mmol/L (21-32) Anion Gap 6 (6-14) Blood Urea Nitrogen 87 mg/dL (8-26) Creatinine 1.8 mg/dL (0.7-1.3) Estimated GFR (Cockcroft-Gault) 37.6 Glucose Level 117 mg/dL (70-99) Hemoglobin A1c 7.8 % (4.8-5.6) Calcium Level 8.9 mg/dL (8.5-10.1) Magnesium Level 2.1 mg/dL (1.8-2.4) Triglycerides Level 65 mg/dL (0-150) Cholesterol Level 102 mg/dL (0-200) LDL Cholesterol, Calculated 55 mg/dL (0-100) VLDL Cholesterol, Calculated 13 mg/dL (0-40) Non-HDL Cholesterol Calculated 68 mg/dL (0-129) HDL Cholesterol 34 mg/dL (40-60) Cholesterol/HDL Ratio 3.0 Thyroid Stimulating Hormone (TSH) 2.158 uIU/mL (0.358-3.74) Glucose (Fingerstick) 147 mg/dL (70-99) Test 12/17/20 11:19 12/17/20 17:02 12/17/20 20:51 12/18/20 05:45 Glucose (Fingerstick) 162 mg/dL (70-99) 202 mg/dL (70-99) 238 mg/dL (70-99) White Blood Count 8.8 x10^3/uL (4.0-11.0) Red Blood Count 4.00 x10^6/uL (4.30-5.70) Hemoglobin 11.9 g/dL (13.0-17.5) Hematocrit 34.8 % (39.0-53.0) Mean Corpuscular Volume 87 fL (79-100) Mean Corpuscular Hemoglobin 30 pg (25-35) Mean Corpuscular Hemoglobin Concent 34 g/dL (31-37) Red Cell Distribution Width 13.8 % (11.5-14.5) Platelet Count 298 x10^3/uL (140-400) Neutrophils (%) (Auto) 76 % (31-73) Lymphocytes (%) (Auto) 6 % (24-48) Monocytes (%) (Auto) 14 % (0-9) Eosinophils (%) (Auto) 3 % (0-3) Basophils (%) (Auto) 1 % (0-3) Neutrophils # (Auto) 6.7 x10^3/uL (1.8-7.7) Lymphocytes # (Auto) 0.5 x10^3/uL (1.0-4.8) Monocytes # (Auto) 1.2 x10^3/uL (0.0-1.1) Eosinophils # (Auto) 0.3 x10^3/uL (0.0-0.7) Basophils # (Auto) 0.1 x10^3/uL (0.0-0.2) Sodium Level 142 mmol/L (136-145) Potassium Level 2.5 mmol/L (3.5-5.1) Chloride Level 99 mmol/L (98-107) Carbon Dioxide Level 36 mmol/L (21-32) Anion Gap 7 (6-14) Blood Urea Nitrogen 76 mg/dL (8-26) Creatinine 1.6 mg/dL (0.7-1.3) Estimated GFR (Cockcroft-Gault) 43.1 Glucose Level 193 mg/dL (70-99) Calcium Level 9.4 mg/dL (8.5-10.1) Magnesium Level 2.2 mg/dL (1.8-2.4) Test 12/18/20 07:49 Glucose (Fingerstick) 177 mg/dL (70-99) Laboratory Tests Test 12/17/20 10:30 12/17/20 11:19 12/17/20 17:02 12/17/20 20:51 Potassium Level 2.8 mmol/L (3.5-5.1) Glucose (Fingerstick) 162 mg/dL (70-99) 202 mg/dL (70-99) 238 mg/dL (70-99) Test 12/18/20 05:45 12/18/20 07:49 White Blood Count 8.8 x10^3/uL (4.0-11.0) Red Blood Count 4.00 x10^6/uL (4.30-5.70) Hemoglobin 11.9 g/dL (13.0-17.5) Hematocrit 34.8 % (39.0-53.0) Mean Corpuscular Volume 87 fL (79-100) Mean Corpuscular Hemoglobin 30 pg (25-35) Mean Corpuscular Hemoglobin Concent 34 g/dL (31-37) Red Cell Distribution Width 13.8 % (11.5-14.5) Platelet Count 298 x10^3/uL (140-400) Neutrophils (%) (Auto) 76 % (31-73) Lymphocytes (%) (Auto) 6 % (24-48) Monocytes (%) (Auto) 14 % (0-9) Eosinophils (%) (Auto) 3 % (0-3) Basophils (%) (Auto) 1 % (0-3) Neutrophils # (Auto) 6.7 x10^3/uL (1.8-7.7) Lymphocytes # (Auto) 0.5 x10^3/uL (1.0-4.8) Monocytes # (Auto) 1.2 x10^3/uL (0.0-1.1) Eosinophils # (Auto) 0.3 x10^3/uL (0.0-0.7) Basophils # (Auto) 0.1 x10^3/uL (0.0-0.2) Sodium Level 142 mmol/L (136-145) Potassium Level 2.5 mmol/L (3.5-5.1) Chloride Level 99 mmol/L (98-107) Carbon Dioxide Level 36 mmol/L (21-32) Anion Gap 7 (6-14) Blood Urea Nitrogen 76 mg/dL (8-26) Creatinine 1.6 mg/dL (0.7-1.3) Estimated GFR (Cockcroft-Gault) 43.1 Glucose Level 193 mg/dL (70-99) Calcium Level 9.4 mg/dL (8.5-10.1) Magnesium Level 2.2 mg/dL (1.8-2.4) Glucose (Fingerstick) 177 mg/dL (70-99) Medications Active Scripts Medications Dose Route/Sig Max Daily Dose Days Date Category Nyamyc (Nystatin) 15 Gm Powder 15 Gm TP BID 12/17/20 Reported Torsemide 100 Mg Tablet 1 Tab PO DAILY 30 12/17/20 Reported Klor-Con M20 (Potassium Chloride) 20 Meq Tab.er.prt 1 Tab PO HS 30 12/17/20 Reported Glimepiride 1 Mg Tablet 1 Tab PO DAILY 12/17/20 Reported Fluticasone Propionate Nasal [place] (Fluticasone Propionate) 16 Gm [place].susp 2 [place] NS BID 12/17/20 Reported Eucerin Eczema Relief (Colloidal Oatmeal) 226 Gm Cream..g. 1 Kristen TP BID 30 12/17/20 Reported Deep Sea (Sodium Chloride) 44 Ml [place] 44 Ml NS TID 12/17/20 Reported Acetaminophen 325 Mg Tablet 1 Tab PO TID PRN 30 12/17/20 Reported Magnesium Oxide 400 Mg Tablet 800 Mg PO DAILY 05/16/20 Rx Metoprolol Tartrate 25 Mg Tablet 12.5 Mg PO BID 05/16/20 Rx Impression . IMPRESSION: 1. Status post right-sided PleurX catheter for recurrent transudative effusion. tx ed 12/17 2. Acute on chronic diastolic heart failure. 3. Acute on chronic kidney disease. 4. Severe hypokalemia. 5. Abnormal x-ray. 6. Paroxysmal atrial fibrillation. 7. Type 2 diabetes complicated with neuropathy. 8. History of moderate aortic stenosis. Plan . PLAN: 1. PleurX catheter. dced on 12/17 2. keep I<O 3. Monitor BUN and creatinine, nephrology consulted 4. No need for antibiotics. 5. Replace potassium. 6. Aggressive PT. 7. titrate fio2 to keep sat above 90%. 8. hep sq for dvt prophylaxis discussed w rn pt SAKINA OBANDO MD Dec 18, 2020 10:05
--- NOTE | 2020-12-18 10:41 | PDOC ---
PROGRESS NOTES Date of Service DATE: 12/18/20 TIME: 10:37 Subjective Subjective feels okay. not shrt of breath. chest tube removed. echo with preserved LVEF with moderate aortic stenosis. lab reviewed. potassium 2.5 bun 76 creatinine 1.6. magnesium 2.2. Objective Objective Vital Signs Date Time Temp Pulse Resp B/P (MAP) Pulse Ox O2 Delivery O2 Flow Rate FiO2 12/18/20 08:21 72 112/72 12/18/20 08:00 Nasal Cannula 2.0 12/18/20 07:00 97.6 24 99 97.6 Intake and Output 12/18/20 07:00 Intake Total 260 ml Output Total 1900 ml Balance -1640 ml Intake Oral 260 ml Output Urine Total 1900 ml # Voids 1 # Bowel Movements 3 Physical Exam Abdomen: Soft Heart: Regular rate, Normal S1, Normal S2 Extremities: No edema General: Alert HEENT: Atraumatic Lungs: Clear to auscultation Neuro: Normal gait Psych/Mental Status: Mental status NL Skin: No rashes Assessment Assessment Problems1. Acute on chronic diastolic congestive heart failure. compensated 2. Acute kidney injury on top of chronic kidney disease stage III, possibly secondary to intravascular volume depletion from his diuretics he took prior to admission. improving off of diuretics 3. Severe hypokalemia. 4. Bilateral pleural effusions.mild. right sided chest tube removed 5. 6. Paroxysmal atrial fibrillation, currently in sinus rhythm, off of Eliquis due to recurrent and significant nosebleeds and he stopped the Eliquis himself about 6 months ago. 7. Diabetes mellitus type 2 with nephropathy. 8. Moderate aortic stenosis. 9. Nonobstructive coronary artery disease. 10. Acute on chronic hypoxic respiratory failure. Medical Problems: (1) Hypokalemia Status: Acute (2) Pleural effusion Status: Acute Plan Plan of Care replete kcl lab tomorrow PT and OT telemetry continue oxygen continue glimepiride and insulin sliding scale Comment Review of Relevant I have reviewed the following items stewart (where applicable) has been applied. Labs Laboratory Tests Test 12/16/20 14:30 12/16/20 18:22 12/16/20 19:50 12/16/20 20:45 White Blood Count 8.2 x10^3/uL (4.0-11.0) Red Blood Count 4.13 x10^6/uL (4.30-5.70) Hemoglobin 12.4 g/dL (13.0-17.5) Hematocrit 35.8 % (39.0-53.0) Mean Corpuscular Volume 87 fL (79-100) Mean Corpuscular Hemoglobin 30 pg (25-35) Mean Corpuscular Hemoglobin Concent 35 g/dL (31-37) Red Cell Distribution Width 13.8 % (11.5-14.5) Platelet Count 314 x10^3/uL (140-400) Neutrophils (%) (Auto) 77 % (31-73) Lymphocytes (%) (Auto) 6 % (24-48) Monocytes (%) (Auto) 13 % (0-9) Eosinophils (%) (Auto) 4 % (0-3) Basophils (%) (Auto) 0 % (0-3) Neutrophils # (Auto) 6.3 x10^3/uL (1.8-7.7) Lymphocytes # (Auto) 0.5 x10^3/uL (1.0-4.8) Monocytes # (Auto) 1.1 x10^3/uL (0.0-1.1) Eosinophils # (Auto) 0.3 x10^3/uL (0.0-0.7) Basophils # (Auto) 0.0 x10^3/uL (0.0-0.2) Sodium Level 138 mmol/L (136-145) Potassium Level 2.2 mmol/L (3.5-5.1) Chloride Level 92 mmol/L (98-107) Carbon Dioxide Level 39 mmol/L (21-32) Anion Gap 7 (6-14) Blood Urea Nitrogen 89 mg/dL (8-26) Creatinine 1.6 mg/dL (0.7-1.3) Estimated GFR (Cockcroft-Gault) 43.1 Glucose Level 280 mg/dL (70-99) Lactic Acid Level 1.8 mmol/L (0.4-2.0) Calcium Level 9.3 mg/dL (8.5-10.1) Magnesium Level 2.0 mg/dL (1.8-2.4) Total Bilirubin 0.8 mg/dL (0.2-1.0) Direct Bilirubin 0.3 mg/dL (0.0-0.2) Aspartate Amino Transf (AST/SGOT) 21 U/L (15-37) Alanine Aminotransferase (ALT/SGPT) 17 U/L (16-63) Alkaline Phosphatase 101 U/L (46-116) Troponin I Quantitative 0.071 ng/mL (0.000-0.055) 0.079 ng/mL (0.000-0.055) AG-Xfv-M-Type Natriuretic Peptide 4528 pg/mL (0-124) Total Protein 7.7 g/dL (6.4-8.2) Albumin 3.1 g/dL (3.4-5.0) Lipase 222 U/L (73-393) Procalcitonin 0.12 ng/mL (0.00-0.10) Glucose (Fingerstick) 172 mg/dL (70-99) 248 mg/dL (70-99) Test 12/17/20 00:30 12/17/20 00:45 12/17/20 08:14 12/17/20 10:30 Troponin I Quantitative 0.079 ng/mL (0.000-0.055) White Blood Count 9.6 x10^3/uL (4.0-11.0) Red Blood Count 3.87 x10^6/uL (4.30-5.70) Hemoglobin 11.7 g/dL (13.0-17.5) Hematocrit 33.1 % (39.0-53.0) Mean Corpuscular Volume 86 fL (79-100) Mean Corpuscular Hemoglobin 30 pg (25-35) Mean Corpuscular Hemoglobin Concent 35 g/dL (31-37) Red Cell Distribution Width 13.9 % (11.5-14.5) Platelet Count 312 x10^3/uL (140-400) Neutrophils (%) (Auto) 75 % (31-73) Lymphocytes (%) (Auto) 6 % (24-48) Monocytes (%) (Auto) 15 % (0-9) Eosinophils (%) (Auto) 3 % (0-3) Basophils (%) (Auto) 0 % (0-3) Neutrophils # (Auto) 7.2 x10^3/uL (1.8-7.7) Lymphocytes # (Auto) 0.6 x10^3/uL (1.0-4.8) Monocytes # (Auto) 1.5 x10^3/uL (0.0-1.1) Eosinophils # (Auto) 0.3 x10^3/uL (0.0-0.7) Basophils # (Auto) 0.0 x10^3/uL (0.0-0.2) Sodium Level 141 mmol/L (136-145) Potassium Level 2.7 mmol/L (3.5-5.1) 2.8 mmol/L (3.5-5.1) Chloride Level 97 mmol/L (98-107) Carbon Dioxide Level 38 mmol/L (21-32) Anion Gap 6 (6-14) Blood Urea Nitrogen 87 mg/dL (8-26) Creatinine 1.8 mg/dL (0.7-1.3) Estimated GFR (Cockcroft-Gault) 37.6 Glucose Level 117 mg/dL (70-99) Hemoglobin A1c 7.8 % (4.8-5.6) Calcium Level 8.9 mg/dL (8.5-10.1) Magnesium Level 2.1 mg/dL (1.8-2.4) Triglycerides Level 65 mg/dL (0-150) Cholesterol Level 102 mg/dL (0-200) LDL Cholesterol, Calculated 55 mg/dL (0-100) VLDL Cholesterol, Calculated 13 mg/dL (0-40) Non-HDL Cholesterol Calculated 68 mg/dL (0-129) HDL Cholesterol 34 mg/dL (40-60) Cholesterol/HDL Ratio 3.0 Thyroid Stimulating Hormone (TSH) 2.158 uIU/mL (0.358-3.74) Glucose (Fingerstick) 147 mg/dL (70-99) Test 12/17/20 11:19 12/17/20 17:02 12/17/20 20:51 12/18/20 05:45 Glucose (Fingerstick) 162 mg/dL (70-99) 202 mg/dL (70-99) 238 mg/dL (70-99) White Blood Count 8.8 x10^3/uL (4.0-11.0) Red Blood Count 4.00 x10^6/uL (4.30-5.70) Hemoglobin 11.9 g/dL (13.0-17.5) Hematocrit 34.8 % (39.0-53.0) Mean Corpuscular Volume 87 fL (79-100) Mean Corpuscular Hemoglobin 30 pg (25-35) Mean Corpuscular Hemoglobin Concent 34 g/dL (31-37) Red Cell Distribution Width 13.8 % (11.5-14.5) Platelet Count 298 x10^3/uL (140-400) Neutrophils (%) (Auto) 76 % (31-73) Lymphocytes (%) (Auto) 6 % (24-48) Monocytes (%) (Auto) 14 % (0-9) Eosinophils (%) (Auto) 3 % (0-3) Basophils (%) (Auto) 1 % (0-3) Neutrophils # (Auto) 6.7 x10^3/uL (1.8-7.7) Lymphocytes # (Auto) 0.5 x10^3/uL (1.0-4.8) Monocytes # (Auto) 1.2 x10^3/uL (0.0-1.1) Eosinophils # (Auto) 0.3 x10^3/uL (0.0-0.7) Basophils # (Auto) 0.1 x10^3/uL (0.0-0.2) Sodium Level 142 mmol/L (136-145) Potassium Level 2.5 mmol/L (3.5-5.1) Chloride Level 99 mmol/L (98-107) Carbon Dioxide Level 36 mmol/L (21-32) Anion Gap 7 (6-14) Blood Urea Nitrogen 76 mg/dL (8-26) Creatinine 1.6 mg/dL (0.7-1.3) Estimated GFR (Cockcroft-Gault) 43.1 Glucose Level 193 mg/dL (70-99) Calcium Level 9.4 mg/dL (8.5-10.1) Magnesium Level 2.2 mg/dL (1.8-2.4) Test 12/18/20 07:49 Glucose (Fingerstick) 177 mg/dL (70-99) Laboratory Tests Test 12/17/20 11:19 12/17/20 17:02 12/17/20 20:51 12/18/20 05:45 Glucose (Fingerstick) 162 mg/dL (70-99) 202 mg/dL (70-99) 238 mg/dL (70-99) White Blood Count 8.8 x10^3/uL (4.0-11.0) Red Blood Count 4.00 x10^6/uL (4.30-5.70) Hemoglobin 11.9 g/dL (13.0-17.5) Hematocrit 34.8 % (39.0-53.0) Mean Corpuscular Volume 87 fL (79-100) Mean Corpuscular Hemoglobin 30 pg (25-35) Mean Corpuscular Hemoglobin Concent 34 g/dL (31-37) Red Cell Distribution Width 13.8 % (11.5-14.5) Platelet Count 298 x10^3/uL (140-400) Neutrophils (%) (Auto) 76 % (31-73) Lymphocytes (%) (Auto) 6 % (24-48) Monocytes (%) (Auto) 14 % (0-9) Eosinophils (%) (Auto) 3 % (0-3) Basophils (%) (Auto) 1 % (0-3) Neutrophils # (Auto) 6.7 x10^3/uL (1.8-7.7) Lymphocytes # (Auto) 0.5 x10^3/uL (1.0-4.8) Monocytes # (Auto) 1.2 x10^3/uL (0.0-1.1) Eosinophils # (Auto) 0.3 x10^3/uL (0.0-0.7) Basophils # (Auto) 0.1 x10^3/uL (0.0-0.2) Sodium Level 142 mmol/L (136-145) Potassium Level 2.5 mmol/L (3.5-5.1) Chloride Level 99 mmol/L (98-107) Carbon Dioxide Level 36 mmol/L (21-32) Anion Gap 7 (6-14) Blood Urea Nitrogen 76 mg/dL (8-26) Creatinine 1.6 mg/dL (0.7-1.3) Estimated GFR (Cockcroft-Gault) 43.1 Glucose Level 193 mg/dL (70-99) Calcium Level 9.4 mg/dL (8.5-10.1) Magnesium Level 2.2 mg/dL (1.8-2.4) Test 12/18/20 07:49 Glucose (Fingerstick) 177 mg/dL (70-99) Microbiology 12/16/20 Blood Culture - Preliminary, Resulted NO GROWTH AFTER 1 DAY Medications Current Medications Potassium Chloride/Water 100 ml @ 50 mls/hr 1X ONCE IV Last administered on 12/16/20at 16:21; Start 12/16/20 at 16:15; Stop 12/16/20 at 18:14; Status DC Vancomycin HCl (Vanco Per Pharmacy) 1 each PRN DAILY PRN MC SEE COMMENTS; Start 12/16/20 at 16:15; Stop 12/16/20 at 16:53; Status DC Levofloxacin/ Dextrose (Levaquin Per Pharmacy) 1 each PRN DAILY PRN MC SEE COMMENTS; Start 12/16/20 at 16:15; Stop 12/16/20 at 16:53; Status DC Levofloxacin/ Dextrose 150 ml @ 100 mls/hr Q48H IV Last administered on 12/16/20at 16:33; Start 12/16/20 at 17:00; Stop 12/16/20 at 16:53; Status DC Vancomycin HCl 250 ml @ 250 mls/hr 1X ONCE IV Last administered on 12/16/20at 16:37; Start 12/16/20 at 17:00; Stop 12/16/20 at 16:53; Status DC Heparin Sodium (Porcine) (Heparin Sodium) 5,000 unit BID SQ Last administered on 12/17/20at 14:07; Start 12/16/20 at 21:00 Glimepiride (Amaryl) 1 mg DAILY PO Last administered on 12/18/20at 08:25; Start 12/17/20 at 09:00 Insulin Human Lispro (HumaLOG) 0-6 UNITS BG 300-39... TIDWMEALS SQ ; Start 12/16/20 at 17:00 Acetaminophen (Tylenol) 650 mg PRN Q6HRS PRN PO MILD PAIN / TEMP > 100.3'F; Start 12/16/20 at 16:45 Potassium Chloride (Klor-Con) 40 meq 1X ONCE PO Last administered on 12/16/20at 17:41; Start 12/16/20 at 16:45; Stop 12/16/20 at 16:55; Status DC Magnesium Oxide (Magnesium Oxide) 400 mg DAILY PO Last administered on 12/18/20at 08:21; Start 12/17/20 at 09:00 Metoprolol Tartrate (Lopressor) 12.5 mg BID PO Last administered on 12/18/20at 08:21; Start 12/16/20 at 21:00 Sodium Chloride (Saline Mist Nasal) 1 kristen TID NS ; Start 12/16/20 at 21:00 Fluticasone Propionate (Flonase) 2 spray DAILY NS ; Start 12/17/20 at 09:00 Sodium Chloride 100 ml @ 0 mls/hr Q0M IV ; Start 12/16/20 at 17:30; Stop 12/16/20 at 21:29; Status DC Potassium Chloride (Klor-Con) 20 meq 1X ONCE PO Last administered on 12/16/20at 21:44; Start 12/16/20 at 21:00; Stop 12/16/20 at 21:01; Status DC Famotidine (Pepcid) 20 mg DAILY PO ; Start 12/17/20 at 09:00 Potassium Chloride/Water 100 ml @ 100 mls/hr Q1H IV Last administered on 12/17/20at 06:30; Start 12/17/20 at 04:00; Stop 12/17/20 at 07:59; Status DC Potassium Chloride (Klor-Con) 40 meq 1X ONCE PO Last administered on 12/17/20at 13:57; Start 12/17/20 at 10:45; Stop 12/17/20 at 10:46; Status DC Lidocaine/ Epinephrine (LIDOCAINE 1%-EPI 1:100,000 Multi-Dose) 20 ml STK-MED ONCE .ROUTE ; Start 12/17/20 at 11:40; Stop 12/17/20 at 11:40; Status DC Lidocaine/ Epinephrine (LIDOCAINE 1%-EPI 1:100,000 Multi-Dose) 20 ml 1X ONCE SQ Last administered on 12/17/20at 12:10; Start 12/17/20 at 12:15; Stop 12/17/20 at 12:16; Status DC Potassium Chloride (Klor-Con) 20 meq 1X ONCE PO Last administered on 12/17/20at 17:01; Start 12/17/20 at 18:00; Stop 12/17/20 at 18:01; Status DC Potassium Chloride (Klor-Con) 40 meq 1X ONCE PO Last administered on 12/18/20at 08:22; Start 12/18/20 at 08:15; Stop 6/19/21 at 08:16; Status DC Potassium Chloride (Klor-Con) 40 meq 1X ONCE PO ; Start 12/18/20 at 12:00; Stop 12/18/20 at 12:01 Active Scripts Active Magnesium Oxide 400 Mg Tablet 800 Mg PO DAILY Metoprolol Tartrate 25 Mg Tablet 12.5 Mg PO BID Reported Nyamyc (Nystatin) 15 Gm Powder 15 Gm TP BID Torsemide 100 Mg Tablet 1 Tab PO DAILY 30 Days Klor-Con M20 (Potassium Chloride) 20 Meq Tab.er.prt 1 Tab PO HS 30 Days Glimepiride 1 Mg Tablet 1 Tab PO DAILY Fluticasone Propionate Nasal [place] (Fluticasone Propionate) 16 Gm [place].susp 2 [place] NS BID Eucerin Eczema Relief (Colloidal Oatmeal) 226 Gm Cream..g. 1 Kristen TP BID 30 Days Deep Sea (Sodium Chloride) 44 Ml [place] 44 Ml NS TID Acetaminophen 325 Mg Tablet 1 Tab PO TID PRN 30 Days Vitals/I & O Vital Sign - Last 24 Hours 12/17/20 12/17/20 12/17/20 12/17/20 11:04 13:59 15:20 19:35 Temp 97.7 98.3 99.0 97.7 98.3 99.0 Pulse 71 71 82 72 Resp 14 16 24 B/P (MAP) 104/63 (77) 104/63 96/66 (76) 99/64 (76) Pulse Ox 98 95 98 O2 Delivery Nasal Cannula Nasal Cannula Nasal Cannula O2 Flow Rate 2.5 12/17/20 12/17/20 12/17/20 12/18/20 20:00 22:05 23:35 04:35 Temp 97.7 98.2 97.7 98.2 Pulse 72 65 69 Resp 22 24 B/P (MAP) 99/64 106/66 (79) 140/77 (98) Pulse Ox 97 98 O2 Delivery Nasal Cannula Nasal Cannula Nasal Cannula O2 Flow Rate 2.5 2.5 2.0 12/18/20 12/18/20 12/18/20 07:00 08:00 08:21 Temp 97.6 97.6 Pulse 70 72 Resp 24 B/P (MAP) 112/72 (85) 112/72 Pulse Ox 99 O2 Delivery Nasal Cannula Nasal Cannula O2 Flow Rate 2.0 2.0 Intake and Output 12/17/20 12/17/20 12/18/20 15:00 23:00 07:00 Intake Total 260 ml Output Total 400 ml 600 ml 900 ml Balance -400 ml -600 ml -640 ml Justifications for Admission Other Justification DALIA FRANKLIN MD Dec 18, 2020 10:41
[2020-12-18 11:00] VITALS: BP 105/61
--- NOTE | 2020-12-18 11:36 | PDOC ---
DATE OF SERVICE DATE: 12/18/20 TIME: 11:33 SUBJECTIVE ROS Stable, No complaints OBJECTIVE Vital Signs Vital Signs Date Time Temp Pulse Resp B/P (MAP) Pulse Ox O2 Delivery O2 Flow Rate FiO2 12/18/20 08:21 72 112/72 12/18/20 08:00 Nasal Cannula 2.0 12/18/20 07:00 97.6 24 99 97.6 I & 0 Intake and Output 12/18/20 06:59 Intake Total 260 ml Output Total 1900 ml Balance -1640 ml Intake Oral 260 ml Output Urine Total 1900 ml # Voids 1 # Bowel Movements 3 PHYSICAL EXAM Physical Exam GEN NAD HEENT: OM moist NECK: Supple HEART: S1, S2; grade II/ systolic murmur left sternal border, also heard at the axilla. LUNGS: Decreased at bases PleurX removed , Non labored ABDOMEN: Soft with no hepatosplenomegaly, masses or tenderness. : Chronic Campbell catheter in place. EXTREMITIES: No LE edema SKIN: No rashes. NEURO; grossly normal DIAGNOSIS/ASSESSMENT Assessment & Plan CAREY on CKD - Cardiorenal/Overdiuresis ; Non Oliguric, Has chronic campbell, UOP adequate ; Supportive care, Agree with holding Diuresis, Maintain hydration, NS boluses prn , dw RN HypoKalemia- severe- 2/2 diuretics , Currently on IV KCL replacement, Monitor and replace as indicated CKD stage 3A -Intermittent CAREY with Cr 1.6-2.0; he doesnt recall seeing a [employer] Nephrolithiasis - Remote Hx of passing kidney stones , none recently. US - Punctate bilateral intrarenal calculi identified. No obvious hydronephrosis Renal Cyst - 3.4 cm cyst left kidney. Acute on chronic diastolic congestive heart failure. Bilateral pleural effusions on CxR , Hx of recurrent effusions Malfunctioning of the PleurX tube in the right side - removed Paroxysmal atrial fibrillation, currently in sinus rhythm Diabetes mellitus type 2 with nephropathy. Moderate aortic stenosis. Nonobstructive coronary artery disease. COMMENT/RELEVANT DATA Meds Current Medications Medications (Trade) Dose Ordered Sig/Jeremías Start Time Stop Time Status Last Admin Dose Admin Acetaminophen (Tylenol) 650 mg PRN Q6HRS PRN 12/16/20 16:45 Famotidine (Pepcid) 20 mg DAILY 12/17/20 09:00 Fluticasone Propionate (Flonase) 2 spray DAILY 12/17/20 09:00 Glimepiride (Amaryl) 1 mg DAILY 12/17/20 09:00 12/18/20 08:25 1 MG Heparin Sodium (Porcine) (Heparin Sodium) 5,000 unit BID 12/16/20 21:00 12/17/20 14:07 5,000 UNIT Insulin Human Lispro (HumaLOG) 0-6 UNITS BG 300-39... TIDWMEALS 12/16/20 17:00 Levofloxacin/ Dextrose 150 ml @ 100 mls/hr Q48H 12/16/20 17:00 12/16/20 16:53 DC 12/16/20 16:33 100 MLS/HR Levofloxacin/ Dextrose (Levaquin Per Pharmacy) 1 each PRN DAILY PRN 12/16/20 16:15 12/16/20 16:53 DC Lidocaine/ Epinephrine (LIDOCAINE 1%-EPI 1:100,000 Multi-Dose) 20 ml 1X ONCE 12/17/20 12:15 12/17/20 12:16 DC 12/17/20 12:10 6 ML Magnesium Oxide (Magnesium Oxide) 400 mg DAILY 12/17/20 09:00 12/18/20 08:21 400 MG Metoprolol Tartrate (Lopressor) 12.5 mg BID 12/16/20 21:00 12/18/20 08:21 12.5 MG Potassium Chloride/Water 100 ml @ 100 mls/hr Q1H 12/17/20 04:00 12/17/20 07:59 DC 12/17/20 06:30 100 MLS/HR Potassium Chloride (Klor-Con) 40 meq 1X ONCE 12/18/20 12:00 12/18/20 12:01 Sodium Chloride 100 ml @ 0 mls/hr Q0M 12/16/20 17:30 12/16/20 21:29 DC Sodium Chloride (Saline Mist Nasal) 1 oleg TID 12/16/20 21:00 Vancomycin HCl 250 ml @ 250 mls/hr 1X ONCE 12/16/20 17:00 12/16/20 16:53 DC 12/16/20 16:37 250 MLS/HR Vancomycin HCl (Vanco Per Pharmacy) 1 each PRN DAILY PRN 12/16/20 16:15 12/16/20 16:53 DC Lab Laboratory Tests Test 12/17/20 17:02 12/17/20 20:51 12/18/20 05:45 12/18/20 07:49 Glucose (Fingerstick) 202 mg/dL (70-99) 238 mg/dL (70-99) 177 mg/dL (70-99) White Blood Count 8.8 x10^3/uL (4.0-11.0) Red Blood Count 4.00 x10^6/uL (4.30-5.70) Hemoglobin 11.9 g/dL (13.0-17.5) Hematocrit 34.8 % (39.0-53.0) Mean Corpuscular Volume 87 fL (79-100) Mean Corpuscular Hemoglobin 30 pg (25-35) Mean Corpuscular Hemoglobin Concent 34 g/dL (31-37) Red Cell Distribution Width 13.8 % (11.5-14.5) Platelet Count 298 x10^3/uL (140-400) Neutrophils (%) (Auto) 76 % (31-73) Lymphocytes (%) (Auto) 6 % (24-48) Monocytes (%) (Auto) 14 % (0-9) Eosinophils (%) (Auto) 3 % (0-3) Basophils (%) (Auto) 1 % (0-3) Neutrophils # (Auto) 6.7 x10^3/uL (1.8-7.7) Lymphocytes # (Auto) 0.5 x10^3/uL (1.0-4.8) Monocytes # (Auto) 1.2 x10^3/uL (0.0-1.1) Eosinophils # (Auto) 0.3 x10^3/uL (0.0-0.7) Basophils # (Auto) 0.1 x10^3/uL (0.0-0.2) Sodium Level 142 mmol/L (136-145) Potassium Level 2.5 mmol/L (3.5-5.1) Chloride Level 99 mmol/L (98-107) Carbon Dioxide Level 36 mmol/L (21-32) Anion Gap 7 (6-14) Blood Urea Nitrogen 76 mg/dL (8-26) Creatinine 1.6 mg/dL (0.7-1.3) Estimated GFR (Cockcroft-Gault) 43.1 Glucose Level 193 mg/dL (70-99) Calcium Level 9.4 mg/dL (8.5-10.1) Magnesium Level 2.2 mg/dL (1.8-2.4) Results All relevant outside records, renal labs, imaging studies, telemetry/EKG's were reviewed. Justicifation of Admission Dx: Justifications for Admission: Justification of Admission Dx: N/A JUNITO RODRIGUEZ MD Dec 18, 2020 11:36
[2020-12-18 15:00] VITALS: BP 113/62
[2020-12-18 19:00] VITALS: BP 111/67
[2020-12-18 23:00] VITALS: BP 117/70
[2020-12-19 03:00] VITALS: BP 109/66
[2020-12-19 05:19] LABS: CALCIUM 9.3 mg/dL (8.5-10.1); CREATININE 1.4 mg/dL (0.7-1.3); GFR 50.2; MAGNESIUM 2.3 mg/dL (1.8-2.4); POTASSIUM 3.2 mmol/L (3.5-5.1)
[2020-12-19 07:00] VITALS: BP 123/69
[2020-12-19] MEDS: INSULIN LISPRO 300 UNITS/3 ML VIAL. SQ SCH ×3 (08:00→16:57)
[2020-12-19] MEDS: METOPROLOL TART IMMED RELEASE 25 MG TABLET. PO SCH ×2 (08:31→20:58)
[2020-12-19] MEDS: MAGNESIUM OXIDE 400 MG TABLET PO SCH (08:36)
[2020-12-19] MEDS: FLUTICASONE 50MCG/NASAL SPRAY 16GM BOTTLE. NS SCH (09:00)
[2020-12-19] MEDS: HEPARIN for SUB-Q USE 5,000 UNIT/ML VIAL. SQ SCH ×2 (09:00→20:58)
[2020-12-19] MEDS: FAMOTIDINE 20 MG TABLET. PO SCH (09:00)
[2020-12-19] MEDS: GLIMEPIRIDE 2 MG TABLET. PO SCH (09:00)
[2020-12-19] MEDS: SODIUM CHLORIDE 0.65% NASAL SPRAY 45ML BOTTLE. NS SCH ×3 (09:00→20:58)
--- NOTE | 2020-12-19 09:36 | PDOC ---
PULMONARY PROGRESS NOTES DATE: 12/19/20 TIME: 09:35 Subjective pleurex out on 02 is on home 02 2.5 lpm sob better has occ cough w small amount of sputum Vitals Vital Signs Date Time Temp Pulse Resp B/P (MAP) Pulse Ox O2 Delivery O2 Flow Rate FiO2 12/19/20 08:31 74 123/69 12/19/20 07:00 97.9 24 97 Nasal Cannula 2.0 97.9 ROS: No Nausea, No Chest Pain General: Alert HEENT: Other (nc at perrl ) Lungs: Other (b lat diminished bs ) Cardiovascular: S1, S2 Abdomen: Soft, Non-tender Extremities: Other Skin: Warm Labs Laboratory Tests Test 12/17/20 10:30 12/17/20 11:19 12/17/20 17:02 12/17/20 20:51 Potassium Level 2.8 mmol/L (3.5-5.1) Glucose (Fingerstick) 162 mg/dL (70-99) 202 mg/dL (70-99) 238 mg/dL (70-99) Test 12/18/20 05:45 12/18/20 07:49 12/18/20 11:47 12/18/20 16:43 White Blood Count 8.8 x10^3/uL (4.0-11.0) Red Blood Count 4.00 x10^6/uL (4.30-5.70) Hemoglobin 11.9 g/dL (13.0-17.5) Hematocrit 34.8 % (39.0-53.0) Mean Corpuscular Volume 87 fL (79-100) Mean Corpuscular Hemoglobin 30 pg (25-35) Mean Corpuscular Hemoglobin Concent 34 g/dL (31-37) Red Cell Distribution Width 13.8 % (11.5-14.5) Platelet Count 298 x10^3/uL (140-400) Neutrophils (%) (Auto) 76 % (31-73) Lymphocytes (%) (Auto) 6 % (24-48) Monocytes (%) (Auto) 14 % (0-9) Eosinophils (%) (Auto) 3 % (0-3) Basophils (%) (Auto) 1 % (0-3) Neutrophils # (Auto) 6.7 x10^3/uL (1.8-7.7) Lymphocytes # (Auto) 0.5 x10^3/uL (1.0-4.8) Monocytes # (Auto) 1.2 x10^3/uL (0.0-1.1) Eosinophils # (Auto) 0.3 x10^3/uL (0.0-0.7) Basophils # (Auto) 0.1 x10^3/uL (0.0-0.2) Sodium Level 142 mmol/L (136-145) Potassium Level 2.5 mmol/L (3.5-5.1) Chloride Level 99 mmol/L (98-107) Carbon Dioxide Level 36 mmol/L (21-32) Anion Gap 7 (6-14) Blood Urea Nitrogen 76 mg/dL (8-26) Creatinine 1.6 mg/dL (0.7-1.3) Estimated GFR (Cockcroft-Gault) 43.1 Glucose Level 193 mg/dL (70-99) Calcium Level 9.4 mg/dL (8.5-10.1) Magnesium Level 2.2 mg/dL (1.8-2.4) Glucose (Fingerstick) 177 mg/dL (70-99) 237 mg/dL (70-99) 197 mg/dL (70-99) Test 12/18/20 20:30 12/19/20 04:45 12/19/20 07:54 Glucose (Fingerstick) 217 mg/dL (70-99) 170 mg/dL (70-99) Sodium Level 143 mmol/L (136-145) Potassium Level 3.2 mmol/L (3.5-5.1) Chloride Level 102 mmol/L (98-107) Carbon Dioxide Level 35 mmol/L (21-32) Anion Gap 6 (6-14) Blood Urea Nitrogen 58 mg/dL (8-26) Creatinine 1.4 mg/dL (0.7-1.3) Estimated GFR (Cockcroft-Gault) 50.2 Glucose Level 161 mg/dL (70-99) Calcium Level 9.3 mg/dL (8.5-10.1) Magnesium Level 2.3 mg/dL (1.8-2.4) Laboratory Tests Test 12/18/20 11:47 12/18/20 16:43 12/18/20 20:30 12/19/20 04:45 Glucose (Fingerstick) 237 mg/dL (70-99) 197 mg/dL (70-99) 217 mg/dL (70-99) Sodium Level 143 mmol/L (136-145) Potassium Level 3.2 mmol/L (3.5-5.1) Chloride Level 102 mmol/L (98-107) Carbon Dioxide Level 35 mmol/L (21-32) Anion Gap 6 (6-14) Blood Urea Nitrogen 58 mg/dL (8-26) Creatinine 1.4 mg/dL (0.7-1.3) Estimated GFR (Cockcroft-Gault) 50.2 Glucose Level 161 mg/dL (70-99) Calcium Level 9.3 mg/dL (8.5-10.1) Magnesium Level 2.3 mg/dL (1.8-2.4) Test 12/19/20 07:54 Glucose (Fingerstick) 170 mg/dL (70-99) Medications Active Scripts Medications Dose Route/Sig Max Daily Dose Days Date Category Nyamyc (Nystatin) 15 Gm Powder 15 Gm TP BID 12/17/20 Reported Torsemide 100 Mg Tablet 1 Tab PO DAILY 30 12/17/20 Reported Klor-Con M20 (Potassium Chloride) 20 Meq Tab.er.prt 1 Tab PO HS 30 12/17/20 Reported Glimepiride 1 Mg Tablet 1 Tab PO DAILY 12/17/20 Reported Fluticasone Propionate Nasal Friend (Fluticasone Propionate) 16 Gm Friend.susp 2 Friend NS BID 12/17/20 Reported Eucerin Eczema Relief (Colloidal Oatmeal) 226 Gm Cream..g. 1 Kristen TP BID 30 12/17/20 Reported Deep Sea (Sodium Chloride) 44 Ml Friend 44 Ml NS TID 12/17/20 Reported Acetaminophen 325 Mg Tablet 1 Tab PO TID PRN 30 12/17/20 Reported Magnesium Oxide 400 Mg Tablet 800 Mg PO DAILY 05/16/20 Rx Metoprolol Tartrate 25 Mg Tablet 12.5 Mg PO BID 05/16/20 Rx Impression . IMPRESSION: 1. Status post right-sided PleurX catheter for recurrent transudative effusion. la ed 12/17 2. Acute on chronic diastolic heart failure. 3. Acute on chronic kidney disease. 4. Severe hypokalemia. 5. Abnormal x-ray. 6. Paroxysmal atrial fibrillation. 7. Type 2 diabetes complicated with neuropathy. 8. History of moderate aortic stenosis. Plan . PLAN: 1. PleurX catheter. dced on 12/17 2. keep I<O 3. Monitor BUN and creatinine, nephrology consulted 4. No need for antibiotics. 5. Replace potassium. improving 6. Aggressive PT. 7. titrate fio2 to keep sat above 90%. is on home 02 8. hep sq for dvt prophylaxis discussed w rn pt SAKINA OBANDO MD Dec 19, 2020 09:36
--- NOTE | 2020-12-19 10:09 | PDOC ---
PROGRESS NOTES Date of Service DATE: 12/19/20 TIME: 10:07 Subjective Subjective feels better. lab reviewed. potassium 3.2. renal function close to baseline. not short of breath. Objective Objective Vital Signs Date Time Temp Pulse Resp B/P (MAP) Pulse Ox O2 Delivery O2 Flow Rate FiO2 12/19/20 08:31 74 123/69 12/19/20 07:00 97.9 24 97 Nasal Cannula 2.0 97.9 l Intake and Output 12/19/20 07:00 Intake Total 2380 ml Output Total 1800 ml Balance 580 ml Intake Oral 2380 ml Output Urine Total 1800 ml # Bowel Movements 2 Physical Exam Abdomen: Soft Heart: Regular rate, Normal S1, Normal S2 Extremities: No edema General: Alert HEENT: Atraumatic Lungs: Other (decreased breath sounds bases) Neuro: Normal speech Psych/Mental Status: Mental status NL Skin: No rashes Assessment Assessment Problems1. Acute on chronic diastolic congestive heart failure. compensated 2. Acute kidney injury on top of chronic kidney disease stage III, possibly secondary to intravascular volume depletion from his diuretics he took prior to admission. improving off of diuretics 3. hypokalemia. 4. Bilateral pleural effusions.mild. right sided chest tube removed 5. 6. Paroxysmal atrial fibrillation, currently in sinus rhythm, off of Eliquis due to recurrent and significant nosebleeds and he stopped the Eliquis himself about 6 months ago. 7. Diabetes mellitus type 2 with nephropathy. 8. Moderate aortic stenosis. 9. Nonobstructive coronary artery disease. 10. Acute on chronic hypoxic respiratory failure. Medical Problems: (1) Hypokalemia Status: Acute (2) Pleural effusion Status: Acute Plan Plan of Care replete kcl; star torsemide tomorrow at a lower dose PT and OT continue oxygen Comment Review of Relevant I have reviewed the following items stewart (where applicable) has been applied. Labs Laboratory Tests Test 12/17/20 10:30 12/17/20 11:19 12/17/20 17:02 12/17/20 20:51 Potassium Level 2.8 mmol/L (3.5-5.1) Glucose (Fingerstick) 162 mg/dL (70-99) 202 mg/dL (70-99) 238 mg/dL (70-99) Test 12/18/20 05:45 12/18/20 07:49 12/18/20 11:47 12/18/20 16:43 White Blood Count 8.8 x10^3/uL (4.0-11.0) Red Blood Count 4.00 x10^6/uL (4.30-5.70) Hemoglobin 11.9 g/dL (13.0-17.5) Hematocrit 34.8 % (39.0-53.0) Mean Corpuscular Volume 87 fL (79-100) Mean Corpuscular Hemoglobin 30 pg (25-35) Mean Corpuscular Hemoglobin Concent 34 g/dL (31-37) Red Cell Distribution Width 13.8 % (11.5-14.5) Platelet Count 298 x10^3/uL (140-400) Neutrophils (%) (Auto) 76 % (31-73) Lymphocytes (%) (Auto) 6 % (24-48) Monocytes (%) (Auto) 14 % (0-9) Eosinophils (%) (Auto) 3 % (0-3) Basophils (%) (Auto) 1 % (0-3) Neutrophils # (Auto) 6.7 x10^3/uL (1.8-7.7) Lymphocytes # (Auto) 0.5 x10^3/uL (1.0-4.8) Monocytes # (Auto) 1.2 x10^3/uL (0.0-1.1) Eosinophils # (Auto) 0.3 x10^3/uL (0.0-0.7) Basophils # (Auto) 0.1 x10^3/uL (0.0-0.2) Sodium Level 142 mmol/L (136-145) Potassium Level 2.5 mmol/L (3.5-5.1) Chloride Level 99 mmol/L (98-107) Carbon Dioxide Level 36 mmol/L (21-32) Anion Gap 7 (6-14) Blood Urea Nitrogen 76 mg/dL (8-26) Creatinine 1.6 mg/dL (0.7-1.3) Estimated GFR (Cockcroft-Gault) 43.1 Glucose Level 193 mg/dL (70-99) Calcium Level 9.4 mg/dL (8.5-10.1) Magnesium Level 2.2 mg/dL (1.8-2.4) Glucose (Fingerstick) 177 mg/dL (70-99) 237 mg/dL (70-99) 197 mg/dL (70-99) Test 12/18/20 20:30 12/19/20 04:45 12/19/20 07:54 Glucose (Fingerstick) 217 mg/dL (70-99) 170 mg/dL (70-99) Sodium Level 143 mmol/L (136-145) Potassium Level 3.2 mmol/L (3.5-5.1) Chloride Level 102 mmol/L (98-107) Carbon Dioxide Level 35 mmol/L (21-32) Anion Gap 6 (6-14) Blood Urea Nitrogen 58 mg/dL (8-26) Creatinine 1.4 mg/dL (0.7-1.3) Estimated GFR (Cockcroft-Gault) 50.2 Glucose Level 161 mg/dL (70-99) Calcium Level 9.3 mg/dL (8.5-10.1) Magnesium Level 2.3 mg/dL (1.8-2.4) Laboratory Tests Test 12/18/20 11:47 12/18/20 16:43 12/18/20 20:30 12/19/20 04:45 Glucose (Fingerstick) 237 mg/dL (70-99) 197 mg/dL (70-99) 217 mg/dL (70-99) Sodium Level 143 mmol/L (136-145) Potassium Level 3.2 mmol/L (3.5-5.1) Chloride Level 102 mmol/L (98-107) Carbon Dioxide Level 35 mmol/L (21-32) Anion Gap 6 (6-14) Blood Urea Nitrogen 58 mg/dL (8-26) Creatinine 1.4 mg/dL (0.7-1.3) Estimated GFR (Cockcroft-Gault) 50.2 Glucose Level 161 mg/dL (70-99) Calcium Level 9.3 mg/dL (8.5-10.1) Magnesium Level 2.3 mg/dL (1.8-2.4) Test 12/19/20 07:54 Glucose (Fingerstick) 170 mg/dL (70-99) Microbiology 12/16/20 Blood Culture - Preliminary, Resulted NO GROWTH AFTER 2 DAYS Medications Current Medications Potassium Chloride/Water 100 ml @ 50 mls/hr 1X ONCE IV Last administered on 12/16/20at 16:21; Start 6/17/21 at 16:15; Stop 12/16/20 at 18:14; Status DC Vancomycin HCl (Vanco Per Pharmacy) 1 each PRN DAILY PRN MC SEE COMMENTS; Start 12/16/20 at 16:15; Stop 12/16/20 at 16:53; Status DC Levofloxacin/ Dextrose (Levaquin Per Pharmacy) 1 each PRN DAILY PRN MC SEE COMMENTS; Start 12/16/20 at 16:15; Stop 12/16/20 at 16:53; Status DC Levofloxacin/ Dextrose 150 ml @ 100 mls/hr Q48H IV Last administered on 12/16/20at 16:33; Start 12/16/20 at 17:00; Stop 12/16/20 at 16:53; Status DC Vancomycin HCl 250 ml @ 250 mls/hr 1X ONCE IV Last administered on 12/16/20at 16:37; Start 12/16/20 at 17:00; Stop 12/16/20 at 16:53; Status DC Heparin Sodium (Porcine) (Heparin Sodium) 5,000 unit BID SQ Last administered on 12/17/20at 14:07; Start 12/16/20 at 21:00 Glimepiride (Amaryl) 1 mg DAILY PO Last administered on 12/18/20at 08:25; Start 12/17/20 at 09:00 Insulin Human Lispro (HumaLOG) 0-6 UNITS BG 300-39... TIDWMEALS SQ ; Start 12/16/20 at 17:00 Acetaminophen (Tylenol) 650 mg PRN Q6HRS PRN PO MILD PAIN / TEMP > 100.3'F; Start 12/16/20 at 16:45 Potassium Chloride (Klor-Con) 40 meq 1X ONCE PO Last administered on 12/16/20at 17:41; Start 12/16/20 at 16:45; Stop 12/16/20 at 16:55; Status DC Magnesium Oxide (Magnesium Oxide) 400 mg DAILY PO Last administered on 12/19/20at 08:36; Start 12/17/20 at 09:00 Metoprolol Tartrate (Lopressor) 12.5 mg BID PO Last administered on 12/19/20at 08:31; Start 12/16/20 at 21:00 Sodium Chloride (Saline Mist Nasal) 1 kristen TID NS ; Start 12/16/20 at 21:00 Fluticasone Propionate (Flonase) 2 spray DAILY NS ; Start 12/17/20 at 09:00 Sodium Chloride 100 ml @ 0 mls/hr Q0M IV ; Start 12/16/20 at 17:30; Stop 12/16/20 at 21:29; Status DC Potassium Chloride (Klor-Con) 20 meq 1X ONCE PO Last administered on 12/16/20at 21:44; Start 12/16/20 at 21:00; Stop 12/16/20 at 21:01; Status DC Famotidine (Pepcid) 20 mg DAILY PO ; Start 12/17/20 at 09:00 Potassium Chloride/Water 100 ml @ 100 mls/hr Q1H IV Last administered on at 06:30; Start 12/17/20 at 04:00; Stop 12/17/20 at 07:59; Status DC Potassium Chloride (Klor-Con) 40 meq 1X ONCE PO Last administered on 12/17/20at 13:57; Start 12/17/20 at 10:45; Stop 12/17/20 at 10:46; Status DC Lidocaine/ Epinephrine (LIDOCAINE 1%-EPI 1:100,000 Multi-Dose) 20 ml STK-MED ONCE .ROUTE ; Start 12/17/20 at 11:40; Stop 12/17/20 at 11:40; Status DC Lidocaine/ Epinephrine (LIDOCAINE 1%-EPI 1:100,000 Multi-Dose) 20 ml 1X ONCE SQ Last administered on 12/17/20at 12:10; Start 12/17/20 at 12:15; Stop 12/17/20 at 12:16; Status DC Potassium Chloride (Klor-Con) 20 meq 1X ONCE PO Last administered on 12/17/20at 17:01; Start 12/17/20 at 18:00; Stop 12/17/20 at 18:01; Status DC Potassium Chloride (Klor-Con) 40 meq 1X ONCE PO Last administered on 12/18/20at 08:22; Start 12/18/20 at 08:15; Stop 12/18/20 at 08:16; Status DC Potassium Chloride (Klor-Con) 40 meq 1X ONCE PO Last administered on 12/18/20at 12:23; Start 12/18/20 at 12:00; Stop 12/18/20 at 12:01; Status DC Active Scripts Active Magnesium Oxide 400 Mg Tablet 800 Mg PO DAILY Metoprolol Tartrate 25 Mg Tablet 12.5 Mg PO BID Reported Nyamyc (Nystatin) 15 Gm Powder 15 Gm TP BID Torsemide 100 Mg Tablet 1 Tab PO DAILY 30 Days Klor-Con M20 (Potassium Chloride) 20 Meq Tab.er.prt 1 Tab PO HS 30 Days Glimepiride 1 Mg Tablet 1 Tab PO DAILY Fluticasone Propionate Nasal [place] (Fluticasone Propionate) 16 Gm [place].susp 2 [place] NS BID Eucerin Eczema Relief (Colloidal Oatmeal) 226 Gm Cream..g. 1 Kristen TP BID 30 Days Deep Sea (Sodium Chloride) 44 Ml [place] 44 Ml NS TID Acetaminophen 325 Mg Tablet 1 Tab PO TID PRN 30 Days Vitals/I & O Vital Sign - Last 24 Hours 12/18/20 12/18/20 12/18/20 12/18/20 11:00 15:00 19:00 20:00 Temp 97.3 98.2 98.1 97.3 98.2 98.1 Pulse 67 69 69 Resp 24 22 B/P (MAP) 105/61 (76) 113/62 (79) 111/67 (82) Pulse Ox 97 98 99 O2 Delivery Nasal Cannula Nasal Cannula Nasal Cannula Nasal Cannula O2 Flow Rate 2.0 2.0 2.0 2.0 12/18/20 12/18/20 12/19/20 12/19/20 20:53 23:00 03:00 07:00 Temp 98.1 98.1 97.9 98.1 98.1 97.9 Pulse 69 68 71 74 Resp 24 24 24 B/P (MAP) 111/67 117/70 (86) 109/66 (80) 123/69 (87) Pulse Ox 98 97 97 O2 Delivery Nasal Cannula Nasal Cannula Nasal Cannula O2 Flow Rate 2.0 2.0 2.0 12/19/20 08:31 Pulse 74 B/P (MAP) 123/69 Intake and Output 12/18/20 12/18/20 12/19/20 15:00 23:00 07:00 Intake Total 1580 ml 500 ml 300 ml Output Total 800 ml 1000 ml Balance 1580 ml -300 ml -700 ml Justifications for Admission Other Justification DALIA FRANKLIN MD Dec 19, 2020 10:09
[2020-12-19] MEDS ORDERED: POTASSIUM CHLORIDE 20 MEQ TABLET.ER. PO ONE ×2 (10:15→15:00)
[2020-12-19 11:00] VITALS: BP 108/65
--- NOTE | 2020-12-19 14:01 | PDOC ---
DATE OF SERVICE DATE: 12/19/20 TIME: 14:00 SUBJECTIVE ROS Stable, No complaints , No SOB OBJECTIVE Vital Signs Vital Signs Date Time Temp Pulse Resp B/P (MAP) Pulse Ox O2 Delivery O2 Flow Rate FiO2 12/19/20 11:00 97.7 70 24 108/65 (79) 98 Nasal Cannula 2.0 97.7 I & 0 Intake and Output 12/19/20 07:00 Intake Total 2380 ml Output Total 1800 ml Balance 580 ml Intake Oral 2380 ml Output Urine Total 1800 ml # Bowel Movements 2 PHYSICAL EXAM Physical Exam GEN NAD HEENT: OM moist NECK: Supple HEART: S1, S2; grade II/ systolic murmur left sternal border, also heard at the axilla. LUNGS: Decreased at bases PleurX removed , Non labored ABDOMEN: Soft with no hepatosplenomegaly, masses or tenderness. : Chronic Campbell catheter in place. EXTREMITIES: No LE edema SKIN: No rashes. NEURO; grossly normal DIAGNOSIS/ASSESSMENT Assessment & Plan CAREY on CKD - Cardiorenal/Overdiuresis ; Non Oliguric, Has chronic campbell, UOP adequate ; improving renal function ,Supportive care, holding Diuresis, HypoKalemia- severe- 2/2 diuretics , Monitor and replace as indicated CKD stage 3A -Intermittent CAREY with Cr 1.6-2.0; he doesnt recall seeing a [employer] Nephrolithiasis - Remote Hx of passing kidney stones , none recently. US - Punctate bilateral intrarenal calculi identified. No obvious hydronephrosis Renal Cyst - 3.4 cm cyst left kidney. Acute on chronic diastolic congestive heart failure. Bilateral pleural effusions on CxR , Hx of recurrent effusions Malfunctioning of the PleurX tube in the right side - removed Paroxysmal atrial fibrillation, currently in sinus rhythm Diabetes mellitus type 2 with nephropathy. Moderate aortic stenosis. Nonobstructive coronary artery disease. COMMENT/RELEVANT DATA Meds Current Medications Medications (Trade) Dose Ordered Sig/Jeremías Start Time Stop Time Status Last Admin Dose Admin Acetaminophen (Tylenol) 650 mg PRN Q6HRS PRN 12/16/20 16:45 Famotidine (Pepcid) 20 mg DAILY 12/17/20 09:00 Fluticasone Propionate (Flonase) 2 spray DAILY 12/17/20 09:00 Glimepiride (Amaryl) 1 mg DAILY 12/17/20 09:00 12/19/20 09:00 1 MG Heparin Sodium (Porcine) (Heparin Sodium) 5,000 unit BID 12/16/20 21:00 12/17/20 14:07 5,000 UNIT Insulin Human Lispro (HumaLOG) 0-6 UNITS BG 300-39... TIDWMEALS 12/16/20 17:00 Levofloxacin/ Dextrose 150 ml @ 100 mls/hr Q48H 12/16/20 17:00 12/16/20 16:53 DC 12/16/20 16:33 100 MLS/HR Levofloxacin/ Dextrose (Levaquin Per Pharmacy) 1 each PRN DAILY PRN 12/16/20 16:15 12/16/20 16:53 DC Lidocaine/ Epinephrine (LIDOCAINE 1%-EPI 1:100,000 Multi-Dose) 20 ml 1X ONCE 12/17/20 12:15 12/17/20 12:16 DC 12/17/20 12:10 6 ML Magnesium Oxide (Magnesium Oxide) 400 mg DAILY 12/17/20 09:00 12/19/20 08:36 400 MG Metoprolol Tartrate (Lopressor) 12.5 mg BID 12/16/20 21:00 12/19/20 08:31 12.5 MG Potassium Chloride/Water 100 ml @ 100 mls/hr Q1H 12/17/20 04:00 12/17/20 07:59 DC 12/17/20 06:30 100 MLS/HR Potassium Chloride (Klor-Con) 20 meq 1X ONCE 12/19/20 15:00 12/19/20 15:01 Sodium Chloride 100 ml @ 0 mls/hr Q0M 12/16/20 17:30 12/16/20 21:29 DC Sodium Chloride (Saline Mist Nasal) 1 oleg TID 12/16/20 21:00 Vancomycin HCl 250 ml @ 250 mls/hr 1X ONCE 12/16/20 17:00 12/16/20 16:53 DC 12/16/20 16:37 250 MLS/HR Vancomycin HCl (Vanco Per Pharmacy) 1 each PRN DAILY PRN 12/16/20 16:15 12/16/20 16:53 DC Lab Laboratory Tests Test 12/18/20 16:43 12/18/20 20:30 12/19/20 04:45 12/19/20 07:54 Glucose (Fingerstick) 197 mg/dL (70-99) 217 mg/dL (70-99) 170 mg/dL (70-99) Sodium Level 143 mmol/L (136-145) Potassium Level 3.2 mmol/L (3.5-5.1) Chloride Level 102 mmol/L (98-107) Carbon Dioxide Level 35 mmol/L (21-32) Anion Gap 6 (6-14) Blood Urea Nitrogen 58 mg/dL (8-26) Creatinine 1.4 mg/dL (0.7-1.3) Estimated GFR (Cockcroft-Gault) 50.2 Glucose Level 161 mg/dL (70-99) Calcium Level 9.3 mg/dL (8.5-10.1) Magnesium Level 2.3 mg/dL (1.8-2.4) Test 12/19/20 11:44 Glucose (Fingerstick) 233 mg/dL (70-99) Results All relevant outside records, renal labs, imaging studies, telemetry/EKG's were reviewed. Justicifation of Admission Dx: Justifications for Admission: Justification of Admission Dx: N/A JUNITO RODRIGUEZ MD Dec 19, 2020 14:01
[2020-12-19 15:00] VITALS: BP 115/68
[2020-12-19 19:25] VITALS: BP 110/65
[2020-12-19 22:09] VITALS: BP 121/77
[2020-12-20 03:06] VITALS: BP 109/71
[2020-12-20 07:15] VITALS: BP 109/68
[2020-12-20 07:31] LABS: CALCIUM 9.3 mg/dL (8.5-10.1); CREATININE 1.3 mg/dL (0.7-1.3); GFR 54.7; MAGNESIUM 2.2 mg/dL (1.8-2.4)
[2020-12-20] MEDS: INSULIN LISPRO 300 UNITS/3 ML VIAL. SQ SCH ×2 (08:00→12:00)
[2020-12-20] MEDS: MAGNESIUM OXIDE 400 MG TABLET PO SCH (08:52)
[2020-12-20] MEDS: GLIMEPIRIDE 2 MG TABLET. PO SCH (08:53)
[2020-12-20] MEDS: METOPROLOL TART IMMED RELEASE 25 MG TABLET. PO SCH (08:53)
[2020-12-20] MEDS: FLUTICASONE 50MCG/NASAL SPRAY 16GM BOTTLE. NS SCH (09:00)
[2020-12-20] MEDS: HEPARIN for SUB-Q USE 5,000 UNIT/ML VIAL. SQ SCH (09:00)
[2020-12-20] MEDS: FAMOTIDINE 20 MG TABLET. PO SCH (09:00)
[2020-12-20] MEDS: SODIUM CHLORIDE 0.65% NASAL SPRAY 45ML BOTTLE. NS SCH (09:00)
--- NOTE | 2020-12-20 10:00 | PDOC ---
PROGRESS NOTES Date of Service DATE: 12/20/20 TIME: 09:57 Subjective Subjective feels well. not short of breath. lab reviewed. bun 45 creatinine 1.3 and potassium 4.0. he feels ready for dismissal. Objective Objective Vital Signs Date Time Temp Pulse Resp B/P (MAP) Pulse Ox O2 Delivery O2 Flow Rate FiO2 12/20/20 08:53 73 109/68 12/20/20 07:35 Nasal Cannula 3.0 12/20/20 07:15 98.1 20 98 98.1 Intake and Output 12/20/20 07:00 Intake Total 540 ml Output Total 1580 ml Balance -1040 ml Intake Oral 540 ml Output Urine Total 1580 ml # Bowel Movements 1 Physical Exam Abdomen: Soft Heart: Regular rate, Normal S1, Normal S2 Extremities: No edema General: Alert HEENT: Atraumatic Lungs: Other (clear. decreased breath sounds left base) Neuro: Normal speech Psych/Mental Status: Mental status NL Skin: No rashes Assessment Assessment Problems Medical Problems:1. Acute on chronic diastolic congestive heart failure. compensated 2. Acute kidney injury on top of chronic kidney disease stage III, possibly secondary to intravascular volume depletion from his diuretics he took prior to admission. improving off of diuretics. CAREY resolved 3. hypokalemia.treated and resolved 4. Bilateral pleural effusions.mild. right sided chest tube removed 5. 6. Paroxysmal atrial fibrillation, currently in sinus rhythm, off of Eliquis due to recurrent and significant nosebleeds and he stopped the Eliquis himself about 6 months ago. 7. Diabetes mellitus type 2 with nephropathy. 8. Moderate aortic stenosis. 9. Nonobstructive coronary artery disease. 10. Acute on chronic hypoxic respiratory failure. (1) Hypokalemia Status: Acute (2) Pleural effusion Status: Acute Plan Plan of Care start torsemide 60 mg daily . lower dose start kcl 20 meq 1 tid dismiss with home health with PT and OT and bmp and magnesium every sunday and discussed with his nurse Comment Review of Relevant I have reviewed the following items stewart (where applicable) has been applied. Labs Laboratory Tests Test 12/18/20 11:47 12/18/20 16:43 12/18/20 20:30 12/19/20 04:45 Glucose (Fingerstick) 237 mg/dL (70-99) 197 mg/dL (70-99) 217 mg/dL (70-99) Sodium Level 143 mmol/L (136-145) Potassium Level 3.2 mmol/L (3.5-5.1) Chloride Level 102 mmol/L (98-107) Carbon Dioxide Level 35 mmol/L (21-32) Anion Gap 6 (6-14) Blood Urea Nitrogen 58 mg/dL (8-26) Creatinine 1.4 mg/dL (0.7-1.3) Estimated GFR (Cockcroft-Gault) 50.2 Glucose Level 161 mg/dL (70-99) Calcium Level 9.3 mg/dL (8.5-10.1) Magnesium Level 2.3 mg/dL (1.8-2.4) Test 12/19/20 07:54 12/19/20 11:44 12/19/20 16:46 12/20/20 06:50 Glucose (Fingerstick) 170 mg/dL (70-99) 233 mg/dL (70-99) 256 mg/dL (70-99) Sodium Level 144 mmol/L (136-145) Potassium Level 4.0 mmol/L (3.5-5.1) Chloride Level 104 mmol/L (98-107) Carbon Dioxide Level 35 mmol/L (21-32) Anion Gap 5 (6-14) Blood Urea Nitrogen 45 mg/dL (8-26) Creatinine 1.3 mg/dL (0.7-1.3) Estimated GFR (Cockcroft-Gault) 54.7 Glucose Level 133 mg/dL (70-99) Calcium Level 9.3 mg/dL (8.5-10.1) Magnesium Level 2.2 mg/dL (1.8-2.4) Test 12/20/20 07:51 Glucose (Fingerstick) 117 mg/dL (70-99) Laboratory Tests Test 12/19/20 11:44 12/19/20 16:46 12/20/20 06:50 12/20/20 07:51 Glucose (Fingerstick) 233 mg/dL (70-99) 256 mg/dL (70-99) 117 mg/dL (70-99) Sodium Level 144 mmol/L (136-145) Potassium Level 4.0 mmol/L (3.5-5.1) Chloride Level 104 mmol/L (98-107) Carbon Dioxide Level 35 mmol/L (21-32) Anion Gap 5 (6-14) Blood Urea Nitrogen 45 mg/dL (8-26) Creatinine 1.3 mg/dL (0.7-1.3) Estimated GFR (Cockcroft-Gault) 54.7 Glucose Level 133 mg/dL (70-99) Calcium Level 9.3 mg/dL (8.5-10.1) Magnesium Level 2.2 mg/dL (1.8-2.4) Microbiology 12/16/20 Blood Culture - Preliminary, Resulted NO GROWTH AFTER 3 DAYS Medications Current Medications Potassium Chloride/Water 100 ml @ 50 mls/hr 1X ONCE IV Last administered on 12/16/20at 16:21; Start 12/16/20 at 16:15; Stop 12/16/20 at 18:14; Status DC Vancomycin HCl (Vanco Per Pharmacy) 1 each PRN DAILY PRN [facility] SEE COMMENTS; Start 12/16/20 at 16:15; Stop 12/16/20 at 16:53; Status DC Levofloxacin/ Dextrose (Levaquin Per Pharmacy) 1 each PRN DAILY PRN [facility] SEE COMMENTS; Start 12/16/20 at 16:15; Stop 12/16/20 at 16:53; Status DC Levofloxacin/ Dextrose 150 ml @ 100 mls/hr Q48H IV Last administered on 12/16/20at 16:33; Start 12/16/20 at 17:00; Stop 12/16/20 at 16:53; Status DC Vancomycin HCl 250 ml @ 250 mls/hr 1X ONCE IV Last administered on 12/16/20at 16:37; Start 12/16/20 at 17:00; Stop 12/16/20 at 16:53; Status DC Heparin Sodium (Porcine) (Heparin Sodium) 5,000 unit BID SQ Last administered on 12/17/20at 14:07; Start 12/16/20 at 21:00 Glimepiride (Amaryl) 1 mg DAILY PO Last administered on 12/20/20at 08:53; Start 12/17/20 at 09:00 Insulin Human Lispro (HumaLOG) 0-6 UNITS BG 300-39... TIDWMEALS SQ ; Start 12/16/20 at 17:00 Acetaminophen (Tylenol) 650 mg PRN Q6HRS PRN PO MILD PAIN / TEMP > 100.3'F; Start 12/16/20 at 16:45 Potassium Chloride (Klor-Con) 40 meq 1X ONCE PO Last administered on 12/16/20at 17:41; Start 12/16/20 at 16:45; Stop 12/16/20 at 16:55; Status DC Magnesium Oxide (Magnesium Oxide) 400 mg DAILY PO Last administered on 12/20/20at 08:52; Start 12/17/20 at 09:00 Metoprolol Tartrate (Lopressor) 12.5 mg BID PO Last administered on 12/20/20at 08:53; Start 12/16/20 at 21:00 Sodium Chloride (Saline Mist Nasal) 1 kristen TID NS ; Start 12/16/20 at 21:00 Fluticasone Propionate (Flonase) 2 spray DAILY NS ; Start 12/17/20 at 09:00 Sodium Chloride 100 ml @ 0 mls/hr Q0M IV ; Start 12/16/20 at 17:30; Stop 12/16/20 at 21:29; Status DC Potassium Chloride (Klor-Con) 20 meq 1X ONCE PO Last administered on 12/16/20at 21:44; Start 12/16/20 at 21:00; Stop 12/16/20 at 21:01; Status DC Famotidine (Pepcid) 20 mg DAILY PO ; Start 12/17/20 at 09:00 Potassium Chloride/Water 100 ml @ 100 mls/hr Q1H IV Last administered on 12/17/20at 06:30; Start 12/17/20 at 04:00; Stop 12/17/20 at 07:59; Status DC Potassium Chloride (Klor-Con) 40 meq 1X ONCE PO Last administered on 12/17/20at 13:57; Start 12/17/20 at 10:45; Stop 12/17/20 at 10:46; Status DC Lidocaine/ Epinephrine (LIDOCAINE 1%-EPI 1:100,000 Multi-Dose) 20 ml STK-MED ONCE .ROUTE ; Start 12/17/20 at 11:40; Stop 12/17/20 at 11:40; Status DC Lidocaine/ Epinephrine (LIDOCAINE 1%-EPI 1:100,000 Multi-Dose) 20 ml 1X ONCE SQ Last administered on 12/17/20at 12:10; Start 12/17/20 at 12:15; Stop 12/17/20 at 12:16; Status DC Potassium Chloride (Klor-Con) 20 meq 1X ONCE PO Last administered on 12/17/20at 17:01; Start 12/17/20 at 18:00; Stop 12/17/20 at 18:01; Status DC Potassium Chloride (Klor-Con) 40 meq 1X ONCE PO Last administered on 12/18/20at 08:22; Start 12/18/20 at 08:15; Stop 12/18/20 at 08:16; Status DC Potassium Chloride (Klor-Con) 40 meq 1X ONCE PO Last administered on 12/18/20at 12:23; Start 12/18/20 at 12:00; Stop 12/18/20 at 12:01; Status DC Potassium Chloride (Klor-Con) 40 meq 1X ONCE PO Last administered on 12/19/20at 11:11; Start 12/19/20 at 10:15; Stop 12/19/20 at 10:16; Status DC Potassium Chloride (Klor-Con) 20 meq 1X ONCE PO Last administered on 12/19/20at 16:54; Start 12/19/20 at 15:00; Stop 12/19/20 at 15:01; Status DC Active Scripts Active Magnesium Oxide 400 Mg Tablet 800 Mg PO DAILY Metoprolol Tartrate 25 Mg Tablet 12.5 Mg PO BID Reported [facility] (Nystatin) 15 Gm Powder 15 Gm TP BID Torsemide 100 Mg Tablet 1 Tab PO DAILY 30 Days Klor-Con M20 (Potassium Chloride) 20 Meq Tab.er.prt 1 Tab PO HS 30 Days Glimepiride 1 Mg Tablet 1 Tab PO DAILY Fluticasone Propionate Nasal [place] (Fluticasone Propionate) 16 Gm [place].susp 2 [place] NS BID Eucerin Eczema Relief (Colloidal Oatmeal) 226 Gm Cream..g. 1 Kristen TP BID 30 Days Deep Sea (Sodium Chloride) 44 Ml [place] 44 Ml NS TID Acetaminophen 325 Mg Tablet 1 Tab PO TID PRN 30 Days Vitals/I & O Vital Sign - Last 24 Hours 12/19/20 12/19/20 12/19/20 12/19/20 11:00 15:00 19:25 19:42 Temp 97.7 97.5 98.3 97.7 97.5 98.3 Pulse 70 68 72 Resp 24 24 18 B/P (MAP) 108/65 (79) 115/68 (84) 110/65 (80) Pulse Ox 98 100 99 O2 Delivery Nasal Cannula Nasal Cannula Nasal Cannula Nasal Cannula O2 Flow Rate 2.0 2.0 3.0 2.0 12/19/20 12/19/20 12/20/20 12/20/20 20:58 22:09 03:06 07:15 Temp 98.7 98.4 98.1 98.7 98.4 98.1 Pulse 72 72 69 73 Resp 20 18 20 B/P (MAP) 110/65 121/77 (92) 109/71 (84) 109/68 (82) Pulse Ox 100 98 98 O2 Delivery Nasal Cannula Nasal Cannula Nasal Cannula O2 Flow Rate 3.0 3.0 3.0 12/20/20 12/20/20 07:35 08:53 Pulse 73 B/P (MAP) 109/68 O2 Delivery Nasal Cannula O2 Flow Rate 3.0 Intake and Output 12/19/20 12/19/20 12/20/20 15:00 23:00 07:00 Intake Total 300 ml 240 ml Output Total 980 ml 600 ml Balance -680 ml -360 ml Justifications for Admission Other Justification DALIA FRANKLIN MD Dec 20, 2020 10:00
[2020-12-20] MEDS ORDERED: FLUT16SP NS (10:12)
[2020-12-20] MEDS ORDERED: POTA20TA4 PO (10:12)
[2020-12-20] MEDS ORDERED: MAGN400T5 PO (10:12)
[2020-12-20] MEDS ORDERED: TORS20TA2 PO (10:12)
--- NOTE | 2020-12-20 10:15 | SNU/HH DC ---
DISCHARGE WITH HOME HEALTH DISCHARGE INFORMATION: Discharge Date: Dec 20, 2020 Final Diagnosis: Problems hypokalemia. acute kidney injury Medical Problems: (1) Hypokalemia Status: Acute (2) Pleural effusion Status: Acute Condition on Discharge: Stable CODE STATUS: Code Status: Full HOME HEALTH: Face to Face: I certify this patient is under my care and that I, or a nurse practitioner or physician's assistant manager retail working with me, had a face to face encounter that meets the physician face to face encounter requirements with this patient on [12/20/20]. RN For Eval/Treatment: Yes Physical Therapy For: Evalulation/Treatment Occupational Therapy For: Evaluation/Treatment Pt Meets Homebound Status: Limited distance walking POST DISCHARGE ORDERS: Activity Instructions for Disc: Activity as tolerated Weight Bearing Status after Di: No restrictions DIET AFTER DISCHARGE: diabetic and low salt diet Wound/Incision Care: Keep wound/cast CDI CHECKS AFTER DISCHARGE: Checks after discharge: Check blood press - daily, Check blood sugar, ac/hs, Weigh Yourself Daily FOLLOW-UP: PCP to follow Home Health: the doctor who takes care of him at assisted living facility Additional Instructions: arrange bmp and magnesium every sunday and and fax labs to the doctor taking care of the patient at his assisted living facility TREATMENT/EQUIPMENT ORDERS: Adaptive Equipment Issued: None Discharge Respiratory Equipmen: Oxygen CERTIFICATION STATEMENT: Certification Statement: Certification Statement: Based on the above finding, I certify that this patient is confined to the home and needs intermittent long term care, physical therapy and/or speech therapy, or continues to need occupational therapy.~ This patient is under my care, and I have initiated the establishment of the plan of care.~ This patient will be followed by myself or a community physician who will periodically review the plan of care. Home Meds Active Scripts Fluticasone Propionate (FLUTICASONE PROPIONATE NASAL SPRAY) 16 Gm [place].susp, 2 SPRAY NS DAILY for allergic rhinitis, #1 SPRAY Prov:DALIA FRANKLIN MD 12/20/20 Magnesium Oxide (MAGNESIUM OXIDE) 400 Mg Tablet, 400 MG PO BID for suppement, #60 TAB Prov:DALIA FRANKLIN MD 12/20/20 Torsemide (TORSEMIDE) 20 Mg Tablet, 60 MG PO DAILY for chf, #90 TAB Prov:DALIA FRANKLIN MD 12/20/20 Potassium Chloride (KLOR-CON M20) 20 Meq Tab.er.prt, 20 MEQ PO TID for potassium supplement, #90 TAB.SR Prov:DALIA FRANKLIN MD 12/20/20 Metoprolol Tartrate (METOPROLOL TARTRATE) 25 Mg Tablet, 12.5 MG PO BID for paroxysmal atrial fibrillation, #60 TAB Prov:DALIA FRANKLIN MD 05/16/20 Reported Medications Glimepiride (GLIMEPIRIDE) 1 Mg Tablet, 1 TAB PO DAILY for , #30 TAB 5 Refills 12/17/20 Sodium Chloride (DEEP SEA) 44 Ml [place], 44 ML NS TID for , SPRAY 12/17/20 Acetaminophen (ACETAMINOPHEN) 325 Mg Tablet, 1 TAB PO TID PRN for pain or fever for 30 Days, #30 TAB 0 Refills 12/17/20 Discontinued Reported Medications Nystatin (NYAMYC) 15 Gm Powder, 15 GM TP BID for yeast, MISC 12/17/20 Torsemide (TORSEMIDE) 100 Mg Tablet, 1 TAB PO DAILY for for 30 Days, #30 TAB 0 Refills 12/17/20 Potassium Chloride (KLOR-CON M20) 20 Meq Tab.er.prt, 1 TAB PO HS for for 30 Days, #30 TAB 0 Refills 12/17/20 Fluticasone Propionate (FLUTICASONE PROPIONATE NASAL SPRAY) 16 Gm [place].susp, 2 SPRAY NS BID for , #1 INHALER 11 Refills 12/17/20 Colloidal Oatmeal (Eucerin Eczema Relief) 226 Gm Cream..g., 1 DANTE TP BID for for 30 Days, #226 GM 0 Refills 12/17/20 Discontinued Scripts Magnesium Oxide (Magnesium Oxide) 400 Mg Tablet, 800 MG PO DAILY for mg supplement, #60 TAB Prov:DALIA FRANKLIN MD 05/16/20 DALIA FRANKLIN MD Dec 20, 2020 10:15
--- NOTE | 2020-12-20 10:22 | PDOC ---
Provider Note Date of Service: DATE: 12/20/20 TIME: 10:22 Provider Note discharge summary dictated # [id number] Justifications for Admission Other Justification DALIA FRANKLIN MD Dec 20, 2020 10:22
--- NOTE | 2020-12-20 10:45 | DS ---
DATE OF DISCHARGE: 12/20/2020 CONSULTANTS: Hector Wilson MD; Naomi Dill MD; and Katherine Schwarz MD FINAL DISCHARGE DIAGNOSES: 1. Acute kidney injury on top of chronic kidney disease stage 3, most likely secondary to intravascular volume depletion from his previous diuretics. 2. Severe hypokalemia. 3. Chronic diastolic congestive heart failure. 4. Bilateral pleural effusions. 5. Removal of PleurX tube, which was not needed at that time. 6. Paroxysmal atrial fibrillation, currently in sinus rhythm and he stopped taking Eliquis on his own accord due to recurrent significant nosebleeds on that medication. He stopped the Eliquis 6 months prior to admission. 7. Diabetes mellitus type 2 with nephropathy. 8. Moderate aortic stenosis. 9. nonobstructive coronary artery disease. 10. Acute on chronic hypoxic respiratory failure. HOSPITAL COURSE: The patient is a 70-year-old male with a history of chronic diastolic congestive heart failure, moderate aortic stenosis, paroxysmal atrial fibrillation, chronic kidney disease stage 3, diabetes mellitus type 2 with nephropathy, who had a PleurX tube in the right side with recurrent transudative pleural effusions due to his chronic diastolic congestive heart failure. He has had a PleurX tube for about 6 months and clotted about a week ago. According to him, there was usual guillory fluid that was removed a couple of times a week, only a little bit of blood-tinged fluid was removed. He was told by his visiting nurse to go to the emergency room for evaluation. He is on chronic oxygen about 2-1/2 liters per nasal cannula at home. Could not recall his medications in the emergency room. The patient is taken care of by another physician in his assisted living facility. Chest x-ray showed small bilateral pleural effusions. His potassium was critically low at 2.2. His BUN and creatinine were higher than usual with a mean of 89, creatinine 1.6, thought to be due to diuretics he was taking prior to admission. He had acute kidney injury on top of chronic kidney disease stage 3. His baseline serum creatinine has been about 1.6-1.9 in the past. He did not have acute diastolic congestive heart failure, had chronic diastolic congestive heart failure. He was admitted for further evaluation and treatment. His torsemide, which is 100 mg p.o. daily, was stopped. He has been taking only potassium chloride 20 mEq p.o. daily at home. He received IV and oral potassium chloride in quite a bit until his potassium normalized today for the first time at 4.0. He did not have any peripheral edema. His lungs have some decreased breath sounds on the left and lung base was clear. He did not have any crackles. He was not short of breath. He had no peripheral edema. He will be started on a lower dose of torsemide 60 mg p.o. daily instead of 100 mg p.o. daily and his potassium chloride will be increased from 20 mg once a day prior to admission to 20 mEq t.i.d. I left an order for a basic metabolic profile and magnesium to be done by the visiting nurse every Sunday and and results faxed to his doctor who takes care of him at the assisted living facility. He did receive physical and occupational therapy while he was here and will be dismissed to home with home health with physical and occupational therapy, basic metabolic profile, magnesium every Sunday and on a diabetic, low-salt diet. As mentioned, his PleurX tube was removed. He will be dismissed on torsemide 60 mg p.o. daily, potassium chloride 20 mEq p.o. t.i.d. and glimepiride 1 mg p.o. daily, metoprolol tartrate 12.5 mg p.o. b.i.d. and magnesium oxide 400 mg 1 tablet p.o. b.i.d. Continue with Flonase 2 sprays once a day each nostril. Continue saline nasal spray also t.i.d. to both nostrils and also be dismissed on glimepiride 1 mg p.o. daily for his diabetes. He will be followed by the doctor who takes care of him at assisted living facility. Says he does not have any transportation to see me in the office and going to be followed by home health visiting nurse, physical and occupational therapy. ANJELICA MANCERA: Breonna TID: [id number]
--- NOTE | 2020-12-20 10:56 | PDOC ---
PULMONARY PROGRESS NOTES DATE: 12/20/20 TIME: 10:56 Subjective RN reports no significant shortness of air Vitals Vital Signs Date Time Temp Pulse Resp B/P (MAP) Pulse Ox O2 Delivery O2 Flow Rate FiO2 12/20/20 08:53 73 109/68 12/20/20 07:35 Nasal Cannula 3.0 12/20/20 07:15 98.1 20 98 98.1 ROS: No Nausea, No Chest Pain General: Alert HEENT: Other (nc at perrl ) Lungs: Other (b lat diminished bs ) Cardiovascular: S1, S2 Abdomen: Soft, Non-tender Extremities: Other Skin: Warm Labs Laboratory Tests Test 12/18/20 11:47 12/18/20 16:43 12/18/20 20:30 12/19/20 04:45 Glucose (Fingerstick) 237 mg/dL (70-99) 197 mg/dL (70-99) 217 mg/dL (70-99) Sodium Level 143 mmol/L (136-145) Potassium Level 3.2 mmol/L (3.5-5.1) Chloride Level 102 mmol/L (98-107) Carbon Dioxide Level 35 mmol/L (21-32) Anion Gap 6 (6-14) Blood Urea Nitrogen 58 mg/dL (8-26) Creatinine 1.4 mg/dL (0.7-1.3) Estimated GFR (Cockcroft-Gault) 50.2 Glucose Level 161 mg/dL (70-99) Calcium Level 9.3 mg/dL (8.5-10.1) Magnesium Level 2.3 mg/dL (1.8-2.4) Test 12/19/20 07:54 12/19/20 11:44 12/19/20 16:46 12/20/20 06:50 Glucose (Fingerstick) 170 mg/dL (70-99) 233 mg/dL (70-99) 256 mg/dL (70-99) Sodium Level 144 mmol/L (136-145) Potassium Level 4.0 mmol/L (3.5-5.1) Chloride Level 104 mmol/L (98-107) Carbon Dioxide Level 35 mmol/L (21-32) Anion Gap 5 (6-14) Blood Urea Nitrogen 45 mg/dL (8-26) Creatinine 1.3 mg/dL (0.7-1.3) Estimated GFR (Cockcroft-Gault) 54.7 Glucose Level 133 mg/dL (70-99) Calcium Level 9.3 mg/dL (8.5-10.1) Magnesium Level 2.2 mg/dL (1.8-2.4) Test 12/20/20 07:51 Glucose (Fingerstick) 117 mg/dL (70-99) Laboratory Tests Test 12/19/20 11:44 12/19/20 16:46 12/20/20 06:50 12/20/20 07:51 Glucose (Fingerstick) 233 mg/dL (70-99) 256 mg/dL (70-99) 117 mg/dL (70-99) Sodium Level 144 mmol/L (136-145) Potassium Level 4.0 mmol/L (3.5-5.1) Chloride Level 104 mmol/L (98-107) Carbon Dioxide Level 35 mmol/L (21-32) Anion Gap 5 (6-14) Blood Urea Nitrogen 45 mg/dL (8-26) Creatinine 1.3 mg/dL (0.7-1.3) Estimated GFR (Cockcroft-Gault) 54.7 Glucose Level 133 mg/dL (70-99) Calcium Level 9.3 mg/dL (8.5-10.1) Magnesium Level 2.2 mg/dL (1.8-2.4) Medications Active Scripts Medications Dose Route/Sig Max Daily Dose Days Date Category [facility] (Nystatin) 15 Gm Powder 15 Gm TP BID 12/17/20 Reported Torsemide 100 Mg Tablet 1 Tab PO DAILY 30 12/17/20 Reported Klor-Con M20 (Potassium Chloride) 20 Meq Tab.er.prt 1 Tab PO HS 30 12/17/20 Reported Glimepiride 1 Mg Tablet 1 Tab PO DAILY 12/17/20 Reported Fluticasone Propionate Nasal [place] (Fluticasone Propionate) 16 Gm [place].susp 2 [place] NS BID 12/17/20 Reported Eucerin Eczema Relief (Colloidal Oatmeal) 226 Gm Cream..g. 1 Kristen TP BID 30 12/17/20 Reported Deep Sea (Sodium Chloride) 44 Ml [place] 44 Ml NS TID 12/17/20 Reported Acetaminophen 325 Mg Tablet 1 Tab PO TID PRN 30 12/17/20 Reported Magnesium Oxide 400 Mg Tablet 800 Mg PO DAILY 05/16/20 Rx Metoprolol Tartrate 25 Mg Tablet 12.5 Mg PO BID 05/16/20 Rx Impression . IMPRESSION: 1. Status post right-sided PleurX catheter for recurrent transudative effusion. ky ed 12/17 2. Acute on chronic diastolic heart failure. 3. Acute on chronic kidney disease. 4. Severe hypokalemia. 5. Abnormal x-ray. 6. Paroxysmal atrial fibrillation. 7. Type 2 diabetes complicated with neuropathy. 8. History of moderate aortic stenosis. Plan . Patient not seen. Was discharged earlier today Patient to follow-up in the office as needed Okay to discharge Spoke with nurse, will see in the office as needed KIM DOLL MD Dec 20, 2020 10:56
[2020-12-20] MEDS ORDERED: TORSEMIDE 20 MG TABLET. PO SCH (11:00)
--- NOTE | 2020-12-20 11:03 | PDOC ---
Renal-Progress Notes Subjective Notes Notes NO NEW COMPLAINTS History of Present Illness Hx of present illness STABLE Vitals Vitals Vital Signs Date Time Temp Pulse Resp B/P (MAP) Pulse Ox O2 Delivery O2 Flow Rate FiO2 12/20/20 08:53 73 109/68 12/20/20 07:35 Nasal Cannula 3.0 12/20/20 07:15 98.1 20 98 98.1 Weight Weight [ ] I.O. Intake and Output Intake and Output 12/20/20 07:00 Intake Total 540 ml Output Total 1580 ml Balance -1040 ml Intake Oral 540 ml Output Urine Total 1580 ml # Bowel Movements 1 Labs Labs Laboratory Tests Test 12/19/20 11:44 12/19/20 16:46 12/20/20 06:50 12/20/20 07:51 Glucose (Fingerstick) 233 mg/dL (70-99) 256 mg/dL (70-99) 117 mg/dL (70-99) Sodium Level 144 mmol/L (136-145) Potassium Level 4.0 mmol/L (3.5-5.1) Chloride Level 104 mmol/L (98-107) Carbon Dioxide Level 35 mmol/L (21-32) Anion Gap 5 (6-14) Blood Urea Nitrogen 45 mg/dL (8-26) Creatinine 1.3 mg/dL (0.7-1.3) Estimated GFR (Cockcroft-Gault) 54.7 Glucose Level 133 mg/dL (70-99) Calcium Level 9.3 mg/dL (8.5-10.1) Magnesium Level 2.2 mg/dL (1.8-2.4) Micro Micro Microbiology 12/16/20 Blood Culture - Preliminary, Resulted NO GROWTH AFTER 3 DAYS Review of Systems Constitutional: yes: weakness, alert Ears/Nose/Throat: Yes: no symptom reported Eyes: Yes: no symptom reported Pulmonary: Yes no symptom reported Cardiovascular: Yes no symptom reported Gastrointestional: Yes: no symptom reported Musculoskeletal: Yes: joint pain Skin: Yes no symptom reported Psychiatric/Neurological: Yes: no symptom reported Physical Exam General Appearance: no apparent distress Respiratory: bilateral CTA Heart: S1S2 Abdomen: soft, bowel sounds present Genitourinary: bladder flat Extremities: pulses present Neurology: alert Musculoskeletal: Osteoarthritis, Other Assessment Assessment IMP CAREY-IMPROVING CR FROM 1.8 TO 1.3 ACUTE ON CHRONIC CHF-BETTER COMPENSATED HYPOKALEMIA AFIB DM II R PLEUR-X FOR EFFUSION VALVULAR HEART DZ-MOD PLAN REPLACE K CONT DEMADEX LABS IN AM CHECK MAG WILL FOLLOW ARMEN CAMEJO MD Dec 20, 2020 11:03
[2020-12-20 11:20] VITALS: BP 108/64
[2020-12-20] MEDS ORDERED: POTASSIUM CHLORIDE 20 MEQ TABLET.ER. PO SCH (12:00)
--- NOTE | 2020-12-20 12:10 | NUR ---
SS following up with discharge planning. SS reviewed pt chart and discussed with pt RN. Pt is currently requiring oxygen at three liters nasal canula. Pt has home oxygen. PT/OT recommended home with home healthcare. Discharge orders received for home healthcare. SS phoned and faxed discharge orders and clinical to [facility], ; fax [phone], and [facility], ; fax [phone]. Pt will discharge today and return home between 1300 and 1330 via [facility] transportation. Pt, pt's family, and pt's RN notified.
--- NOTE | 2020-12-20 13:30 | NUR ---
DISCHARGED PATIENT TO HOME AT [facility]. DISCHARGE INSTRUCTIONS GIVEN. PIV AND HEART MONITOR REMOVED. [facility] HERE, ESCORTED PATIENT OFF UNIT PER WHEELCHAIR.
== END 2020-12-20 17:00 | disposition home health service (06) | DRG 682 ==
LOC: ER 13:52 → 2 NORTH 15:57
PROVIDERS: ADMIT Internal Medicine; ATTEND Internal Medicine
PROC: 0JPTXXZ Removal of Tunneled Vascular Access Device from Trunk Subcutaneous Tissue and Fascia, External Approach (ICD-10-PCS; principal; 2020-12-17)
DX: N17.9 Acute kidney failure, unspecified (principal); I50.33 Acute on chronic diastolic (congestive) heart failure; J96.21 Acute and chronic respiratory failure with hypoxia; I13.0 Hypertensive heart and chronic kidney disease with heart failure and stage 1 through stage 4 chronic kidney disease, or unspecified chronic kidney disease; I48.92 Unspecified atrial flutter; T85.618A Breakdown (mechanical) of other specified internal prosthetic devices, implants and grafts, initial encounter; E11.22 Type 2 diabetes mellitus with diabetic chronic kidney disease; E11.42 Type 2 diabetes mellitus with diabetic polyneuropathy; E78.00 Pure hypercholesterolemia, unspecified; E78.5 Hyperlipidemia, unspecified; E87.6 Hypokalemia; I25.10 Atherosclerotic heart disease of native coronary artery without angina pectoris; I27.20 Pulmonary hypertension, unspecified; I35.0 Nonrheumatic aortic (valve) stenosis; I48.0 Paroxysmal atrial fibrillation; N18.30 Chronic kidney disease, stage 3 unspecified; F10.20 Alcohol dependence, uncomplicated; M19.90 Unspecified osteoarthritis, unspecified site; Y83.8 Other surgical procedures as the cause of abnormal reaction of the patient, or of later complication, without mention of misadventure at the time of the procedure; Z79.84 Long term (current) use of oral hypoglycemic drugs; Z82.49 Family history of ischemic heart disease and other diseases of the circulatory system; Z83.3 Family history of diabetes mellitus; Z87.440 Personal history of urinary (tract) infections; Z87.442 Personal history of urinary calculi; Z87.891 Personal history of nicotine dependence; Z88.1 Allergy status to other antibiotic agents; Z88.5 Allergy status to narcotic agent; Z88.8 Allergy status to other drugs, medicaments and biological substances; Y92.89 Other specified places as the place of occurrence of the external cause
CPT/HCPCS: 32552; 36415; 71045; 76770; 80048; 80061; 80076; 82962; 83036; 83605; 83690; 83735; 83880; 84132; 84145; 84443; 84484; 85025; 87040; 93005; 93306; 96365; 96366; 96368; J1644; J1956; J3370; J3480; J3490; 97116-GP; 97530-GO; 99285-25; G0378